=== PATIENT | female | born 1970 | race Caucasian/White ===

== ENCOUNTER 2024-12-31 12:36 | Outpatient (CLI) | payer OTHER, SELFPAY ==
--- OUTSIDE RECORDS SUMMARY | 2024-12-31 12:43 | XMS_ITS | Encounter Summary ---
Author Organization [facility] Address [facility] access hospital[address] [place] [address] Care Team Providers Care Superintendent Cemetery Name Role Phone Nieves Sears MD Primary Care Provider [phone] Encounter Details Date Type Department Care Team (Late st Contact Info) Description 10/25/2020 Discharge [facility] Outpatient Therapy [place], [place] [id number] Angelica Holman, PT [place], [place] [phone] Social History Tobacco Use Types Packs/Day Years Used Date Smoking Tobacco: Never Smokeless Tobacco: Never Alcohol Use Standard Drinks/Week Comments No 0 (1 standard drink = 0.6 oz pur e alcohol) AUDIT-C Answer Date Recorded Frequency of Alcohol Consumption Never 10/11/2018 Average Number of Drinks Not on file 019 Frequency of Binge Drinking Not on file 09/26 Comments No Sex and Gender Information Value Date Recorded Sex Assigned at Not on file Legal Sex Female 7:52 PM CDT Gender Identity Not on file Sexual Orientation Not on file documented as of this encounter Plan of Treatment Not on file documented as of this encounter Visit Diagnoses Not on filedocumented in this encounter Care Teams Superintendent Cemetery Relationship Specialty Start Date End Date Nieves Sears MD [address] [address] PCP - General 5/31/16 documented as of this encounter
--- OUTSIDE RECORDS SUMMARY | 2024-12-31 12:43 | XMS_ITS | Clinical Summary ---
Author Organization [facility] Address [address] [place] [address] Care Team Providers Care Family Assistant Name Role Phone Nieves Sears MD Primary Care Provider [phone] Allergies Active Allergy Reactions Criticality Noted Date Comments Lisinopril Unknown Low Medications amlodipine 5 MG tablet 5 mg. 5 Active colestipol 1 g tablet take 1 tablet by ORAL route 3 times every day 5 Active cyanocobalamin 1000 MCG/ML injection INJECT 1ML SQ MONTHLY 7 Active vitamin D2, ergocalciferol, 25266 UNITS capsule TAKE 1 CAPSULE WEEKLY FOR 12 WEEKS AND THEN TAKE 1 EVERY OTHER WEEK FOR CHRONIC VITAMIN D DEFICIENCY 7 Active Fluticasone Furoate (ARNUITY ELLIPTA) 200 MCG/ACT AEROSOL POWDER, BREATH ACTIVATED 200 mcg. 6 Active hydroxychloroquine 200 MG tablet TAKE 2 TABLETS BY MOUTH DAILY 8 Active IRON OR 5 Active methotrexate 2.5 MG tablet Take 20 mg by mouth. 8 Active sertraline 100 MG tablet Take 100 mg by mouth. 7 Active spironolactone 100 MG tablet TAKE 1 TABLET BY MOUTH DAILY WITH MEALS 7 Active traMADol 50 MG tablet Take 50 mg by mouth. 8 Active zolpidem (AMBIEN) 5 MG tablet 5 mg. 5 Active ondansetron (ZOFRAN ODT) 4 MG disintegrating tablet Take 1 tablet (4 mg total) by mouth every 8 (eight) hours as needed for Nausea. 15 tablet 9 Active dicyclomine 20 MG tablet Take 1 tablet (20 mg total) by mouth every 6 (six) hours. 20 tablet 9 Active folic acid 1 MG tablet Take 2 mg by mouth daily. 8 Active leflunomide 20 MG tablet Take 20 mg by mouth daily. 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 Oxygen Saturation 93% 02/01/2020 8:55 AM CDT Inhaled Oxygen Concentration - - Weight 104.6 kg (230 lb 9.6 oz) 02/01/2020 8:55 AM CDT Height 160 cm (5' 3 ) 02/01/2020 8:55 AM CDT Body Mass Index 40.85 02/01/2020 8:55 AM CDT Plan of Treatment Health Maintenance Due Date Last Done Comments Colorectal Cancer Screening Colonoscopy (10 Years) 1970 Annual Physical 1973 Hepatitis C 1988 DTaP, Tdap and Td Vaccines ( 1 - Tdap) 1989 Hepatitis B Vaccines (1 of 3 - 19+ 3-dose series) 1989 Mammogram Screening 2010 Pneumococcal Vaccine: 50+ Ye ars (2 of 2 - PPSV23) 2020 03/25/2017 Zoster Vaccines (1 of 2) 2020 COVID-19 Vaccine (1 - 2023-2 5 season) 2024 Meningococcal B Vaccine Aged Out No l onger eligible based on patient's age to complete this topic Meningococcal Vaccine Aged Out No lara kymberly eligible based on patient's age to complete this topic RSV Immunizations Under 20 Months Aged Out No longer eligible based on patient's age to complete this topic Insurance [facility] Care Teams Family Assistant Relationship Specialty Start Date End Date Nieves Sears MD [address] [place] [phone] PCP - General 01/24/16
--- OUTSIDE RECORDS SUMMARY | 2024-12-31 12:43 | XMS_ITS | Encounter Summary ---
Author Organization [facility] Care Team Providers Care Automotive Starter Repairer Name Role Phone Nieves Sears MD Primary Care Provider + Nieves Sears MD Primary Care Provider + Kinga Ca MD Unavailable Shannan Cristobal PAPER SLITTER Unavailable [phone] Nieves Sears MD Primary Care Provider + Nieves Sears MD Primary Care Provider + Encounter Details Date Type Department Care Team (Latest Contact Info) Description 09/04/2016 Orders Only [facility] ProviderBrett MD [address] [place] [address] Social History Tobacco Use Types Packs/Day Years Used Date Smoking Tobacco: Never Alcohol Use Standard Drinks/Week Comments Yes 0 (1 standard drink = 0.6 oz pur e alcohol) Comments Unknown Sex and Gender Information Value Date Recorded Sex Assigned at Not on file 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 us Historical Provider Final Res ult documented in this encounter Visit Diagnoses Not on filedocumented in this encounter Care Teams Automotive Starter Repairer Relationship Specialty Start Date End Date Nieves Sears MD [address] [address] PCP - General 11/23/16 10/06/19 Nieves Sears MD [address] [address] PCP - General 07/08/15 11/22/16 Nieves Sears MD [address] [address] PCP - General 11/06/19 Nieves Sears MD [address] [phone] PCP - General 10/07/19 11/05/19 [place] [address] [address] Rheumatology 05/15/17 [place] [address] [address] Nurse Practitioner 02/13/18 documented as of this encounter
--- OUTSIDE RECORDS SUMMARY | 2024-12-31 12:43 | XMS_ITS | Data Portability ---
Author Organization [place] [facility],, Phyllis tay Address [address] [place] [address] Care Team Providers Care Skiing Instructor Name Role Phone TK CA Referring Provider Assessment No assessment recorded. Plan of Treatment Reminders Order Date Submit Date Provider Last Modified By Organization Details Last Modified Time Details Appointments None recorded. Lab allergy test, skin 023 023 [email or web address] [facility], [address], [place], [address], 3 16:35:34 Referral None recorded. Procedures None recorded. Surgeries None recorded. Imaging None recorded. Medication Orders None recorded. Patient TargetsNo targets recorded. Patient InstructionsNo instructions recorded. Reason for Referral None Reported. Results Created Date Observation Date Name Description Value Unit Range Abnormal Flag Note LastModifiedBy Organization Detail LastModifiedTime Result Notes None recorded. Problems Name Problem SNOMED Code Status Onset Date Resolution Date Notes Provider Name and Address Organization Details Recorded Time Rheumatoid arthritis 13590044 Active 023 Louisa Dick MD [address], [place], [address] , [place] [facility], 3 15:22:08 Cobalamin deficiency 380487346 Active 023 Louisa Dick MD [address], [place], [address] , [place] [facility], 3 15:22:14 Problem Notes None recorded. Medical Equipment None Reported. Allergies Allergen ID Allergen Name Allergen Category Reaction Reaction Severity Criticality Documentation Date Start Date Code Code System Note Provider Name and Address Organization Details Recorded Time 01853 lisinopri l medicatio n cough Not available Not available 09/26/2022 96334 RxNorm JOHN majano - [facility], 3 15:11:34 Medications Name Sig Start Date Stop Date Status Note LastModified by Organization Details LastModified Time spironolacto ne 100 mg tablet TAKE 1 TABLET BY MOUTH TWICE A DAY WITH MEALS active Not Available Not Available No t Available sertraline 100 mg tablet TAKE 1 TABLET BY MOUTH EVERY DAY active Not Available Not Available No t Available prednisone 5 mg tablet TAKE TWO TABS/D X 5 DAYS, THEN 1 TAB/D X 5 DAYS, THE 0.5 TAB/D X 5 DAYS THEN STOP FOR 15 DAYS active Not Available Not Available No t Available acetaminophe n 300 mg-codeine 30 mg tablet TAKE 1 TABLET BY MOUTH EVERY 6 TO 8 HOURS NEEDED active Not Available Not Available No t Available amlodipine 5 mg tablet TAKE 1 TABLET BY MOUTH EVERY DAY active Not Available Not Available No t Available leflunomide 20 mg tablet TAKE 1 TABLET BY MOUTH EVERY DAY active Not Available Not Available No t Available tramadol 50 mg tablet TAKE 1 TABLET BY MOUTH TWICE A DAY active Not Available Not Available No t Available cefadroxil 500 mg capsule TAKE 1 CAPSULE BY MOUTH TWICE A DAY active Not Available Not Available No t Available amoxicillin 875 mg tablet TAKE 1 TABLET BY MOUTH EVERY 12 HOURS FOR 7 DAYS active Not Available Not Available N ot Available alprazolam 0.25 mg tablet active Not Available Not Available Not Available methotrexate sodium 2.5 mg tablet TAKE 8 TABLETS BY MOUTH ONE TIME PER WEEK active Not Available Not Available No t Available cyanocobalam in (vit B-12) 1,000 mcg/mL injection solution INJECT 1ML SUBCUTANEOU SLY MONTHLY active Not Available Not Available Not Available folic acid 1 mg tablet TAKE 2 TABLETS BY MOUTH EVERY DAY active Not Available Not Available No t Available zolpidem 5 mg tablet TAKE 1 TABLET EVERY NIGHT BY ORAL ROUTE NEEDED. active Not Available Not Available No t Available ergocalcifer ol (vitamin D2) 1,250 mcg (50,000 unit) capsule TAKE 1 CAPSULE BY MOUTH ONE TIME PER WEEK active Not Available Not Available No t Available insulin syringe U-100 with needle 1 mL 29 gauge x 1/2 USE DIRECTED MONTHLY WITH B12 INJECTIONS active Not Available Not Available N ot Available hydroxychlor oquine 200 mg tablet TAKE 1 TABLET BY MOUTH TWICE A DAY active Not Available Not Available No t Available methylpredni solone 4 mg tablets in a dose pack TAKE 6 TABLETS ON DAY 1 DIRECTED ON PACKAGE AND DECREASE BY 1 TAB EACH DAY FOR A TOTAL OF 6 DAYS active Not Available Not Available No t Available hydroxyzine HCl 10 mg tablet active Not Available Not Available Not Available fluticasone propionate 50 mcg/actuatio n nasal spray,suspen vesta SPRAY 2 SPRAYS INTO EACH NOSTRIL EVERY DAY active Not Available Not Available No t Available colestipol 1 gram tablet TAKE 2 TABLETS BY MOUTH EVERY DAY WITH PLENTY OF WATER active Not Available Not Available No t Available bupropion HCl XL 150 mg 24 hr tablet, extended release TAKE 1 TABLET BY MOUTH EVERY DAY active Not Available Not Available No t Available clobetasol-e mollient 0.05 % topical foam APPLY TO AFFECTED AREA OF THE BODY DAILY NEEDED active Not Available Not Available No t Available PNV-DHA 27 mg iron-1 mg-300 mg capsule TAKE 1 CAPSULE BY MOUTH EVERY DAY active Not Available Not Available No t Available Humira(CF) Pen 40 mg/0.4 mL subcutaneous kit active Not Available Not Available Not Available Vitals Date Recorded Body height Body mass index (BMI) Body weight Heart rate Oxygen saturation Oxygen saturation in Arterial blood by Pulse oximetry Respiratory rate Body temperature Systolic blood pressure Diastolic blood pressure Provider Name and Address Organization Details Last Updated DateTime 3 160.02 cm 42.5 kg/m2 141193. 17 g 94 /min 95 % 95 % 18 /min 97.5 [degF] 134 mm[Hg] 82 mm[Hg] ellen [facility]OPE[facility] - [facility], 3 15:11:06 Social History None recorded. Functional Status None recorded. Mental Status None recorded. Family History Nothing Reported. Medical History No medical history recorded. Gynecological HistoryNo gynecological history recorded. Obstetrics History GPAL:G 0 P 0 0 0 0 Past Encounters Encounter ID Performer Location Encounter Start Date Encounter Closed Date Diagnosis/Indication Diagnosis SNOMED-CT Code Diagnosis ICD10 Code Diagnosis Note [id number] Louisa Dick MD OFFICE [address] [place] [phone] 09/26/2022 14:48:20 09/26/2022 17:42:09 Adverse reaction to biological substance 125403047 T50.905A Negative skin test utilizing Humira and Simponi. No evidence for drug specific IgE against either agent. The Humira reaction likely is an injection site reaction only. She may proceed to a trial of Simponi. Health Concerns Section Related Observation LastModified by Organization Detai ls LastModified Time None Recorded Concern Status LastModified by Organization Details LastModified Time None Recorded Advance Directives Directive None Recorded Payers Encounter Date Sequence Insurance Name Policy Number Policy [place] Covered Member ID Villa Member ID Guarantor Name 09/26/2022 1 [id number] [id number] Eleanor Gabby [id number] Eleanor Pierre 09/26/2022 2 [employer] - FOR LIFE (MEDICARE SUPPLEMENT) Rush Pierre [id number] Eleanor Gabby Notes Date Note Type Note Provider Name and Address Organization Details Recorded Time 09/26/2022 text/html Eleanor is referred by Dr. Ca for evaluation of possible allergy to Humira. She started using it after developing tolerance to Orencia. Starting with her first injection the site became red hot and itchy hours later. She continued it for 5 more treatments and the reactions became worse each time. She never developed urticaria or rash distant from the injection site. She never developed angioedema, difficulty breathing, lightheadedness. She rotated sites but always used the quadriceps muscles Louisa Dick MD [address], [place], [address], [facility], 09/26/2022 16:36:47 OBGyn Episode No OBEpisode recorded.
--- OUTSIDE RECORDS SUMMARY | 2024-12-31 12:44 | XMS_ITS | Referral Summary ---
Author Organization [facility] [address] Address [address] [place] [address] Phone Care Team Providers Care Conveyor System Operator Name Role Phone Kinga Ca MD Unavailable Shannan Cristobal NP Unavailable [phone] Nieves Sears MD Primary Care Provider [phone] Encounters Date Type Department Care Team Description 12/25/2024 2:46 PM CDT - 12/25/2024 11:59 PM CDT Hospital Encounter [facility] Diagnostic Imaging [address] [place] [address] 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 factor (HCC) Discharge Disposition: Discharge to home or self care 11/13/2024 7:29 AM CDT - 11/13/2024 11:59 PM CDT Hospital Encounter [facility] Medical Office Bld[facility] [address] [facility] [address] [place] [address] Screening mammogram, encounter for Discharge Disposition: Discharge to home or self care from Last 3 Months Allergies Active Allergy Reactions Criticality Noted Date Comments Lisinopril Unknown Low Medications amLODIPine (NORVASC) 5 mg tablet take 1 tablet by oral route every day 0 0 5 Active zolpidem (AMBIEN) 5 mg tablet take 2 tablet by oral route every day at bedtime 0 0 5 Active colestipol (COLESTID) 1 gram tablet take 1 tablet by ORAL route 3 times every day 0 0 5 Active albuterol sulfate (PROAIR RESPICLICK) 90 mcg/actuation aerosol powdr breath activated inhale 2 puff by inhalation route every 4 - 6 hours as needed 0 Inhaler 0 6 Active cyanocobalamin (Vitamin B-12) 1,000 mcg/mL injection INJECT 1ML SQ MONTHLY 11 7 Active ergocalciferol (VITAMIN D) 50,000 unit capsule TAKE 1 CAPSULE WEEKLY FOR 12 WEEKS AND THEN TAKE 1 EVERY OTHER WEEK FOR CHRONIC VITAMIN D DEFICIENCY 1 7 Active PLUS, CALCIUM CARB, 27 mg iron- 1 mg tablet Take 1 tablet by mouth daily. 3 7 Active sertraline (ZOLOFT) 100 mg tablet Take 100 mg by mouth daily. 3 7 Active spironolactone (ALDACTONE) 100 mg tablet TAKE 1 TABLET BY MOUTH DAILY WITH MEALS 0 7 Active methotrexate 2.5 mg tablet Take 8 tablets (20 mg total) by mouth once a week. 96 tablet 1 8 Active hydroxychloroqu ine (PLAQUENIL) 200 mg tablet TAKE 2 TABLETS BY MOUTH DAILY 180 tablet 8 Active diclofenac sodium 20 mg/gram /actuation(2 %) solution in metered-dose pump Apply 2 pump actuations affected area twice daily 112 g 1 8 Active folic acid (FOLVITE) 1 mg tablet Take 2 tablets (2 mg total) by mouth daily. 180 tablet 3 8 Active leflunomide (ARAVA) 20 mg tabletIndicatio ns:Rheumatoid Arthritis Take 1 tablet (20 mg total) by mouth daily. 30 tablet 3 8 Active traMADol (ULTRAM) 50 mg tablet Take 1 tablet (50 mg total) by mouth every 8 (eight) hours as needed for pain. 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 Currently on SQ MTX 20 mg/wk, folic acid, and HCQ bid Continues to have joint pain and stiffness, which she thinks is getting worse. Tendonitis in the right elbow is not any better w/ conservative measures. Recently saw the coal crusher operator for the skin lesion on her left back calf and was told it was psoriasis. We repeated her autoimmune markers in 02/10 which showed a +anti-C1q. Her hand/wrist us in 01/10 showed worsening active inflammation compared to her previous u/s in 02/09 Discussed adding arava to her current regimen to better control her inflammatory disease. Patient to start leflunomide. The medication can take up to 6-8 weeks to start working and 6 months to feel the maximum effect. Discussed SE including but not limited to: diarrhea and nausea, hair thinning, and skin rash. Discussed that while patient is on this medication it is best to avoid ETOH and have routine blood work to monitor the liver. She was given samples of pennsaid and duexis Will check routine labs today Follow up in 4 wks, sooner if needed Vitamin D deficiency 12/04/2017 Assessment & Plan (02/13/2018 1:39 PM CDT): WNL on recent labs. She is on 50,000/wkly and 2000 units/d Assessment & Plan (12/04/2017 4:09 PM CDT): On supplementation. Will check level today. Encounter for long-term (current) use of medicat ions 07/11/2017 Assessment & Plan (05/14/2018 5:12 PM CDT): Will continue to monitor w/ routine labs Assessment & Plan (02/13/2018 1:22 PM CDT): Will continue to monitor w/ routine labs Assessment & Plan (12/04/2017 3:59 PM CDT): Will continue to monitor w/ routine labs Systemic lupus erythematosus 07/11/2017 Assessment & Plan (05/14/2018 5:06 PM CDT): AVISE testing showed negative SLE serologies other than a +anti-C1q which can sometimes be linked to SLE nephritis. She has had normal kidney function. Will continue to monitor Assessment & Plan (02/13/2018 1:55 PM CDT): Patient disease activity is moderate on hcq and 8 tabs mtx/wk. She is having trouble w/ tendonitis in her right elbow and reports her hands are a little more achy. She is having breast reduction surgery in early February. Patient is to continue current regimen for now. SLE markers on last labs were WNL. Will check routine labs today and will recheck AVISE for change in serologies. Will send in pennsaid to [facility] Follow up in 3 mo, sooner if needed Assessment & Plan (12/04/2017 4:08 PM CDT): She states she is doing fairly well on HCQ and 8 tabs MTX once weekly. She states her hands are beginning to bother her a little more than they have previously. She has a right hand/wrist u/s in 01/2017 which showed mild/moderate synovitis w/ effusions, thickening, and power doppler. Patient is to continue current medical regimen. Will check routine labs today. We will also check a right hand/wrist u/s to see if there is any worsening disease. Pt will follow up in 2 mo, sooner if needed. Pt seen w/ Chelsea Arevalo PA-C Assessment & Plan (07/25/2017 1:10 PM LYMPHEDEMA THERAPIST): On plaquenil and mtx Acute pain of right knee 02/11/2017 Assessment & Plan (03/13/2017 5:49 PM CDT): On Plaquenil. Eye exam is utd. Pt has mod cdai on exam and hand u/ showed mild to mod synovitis. Start mtx 3 tabs/week, discussed potential se of bone marrow suporession, lft elevation, increased risk of infection, oral/nose ulcers, hair loss, lung fibrosis. Check cxr and labs today. Check avise panel. F/u in 1mo. Joint pain of ankle and foot, right 02/11/2017 Assessment & Plan (07/25/2017 1:12 PM LYMPHEDEMA THERAPIST): Worsening pain in R midfoot. xrays did not show any cause for this pain. She has heel spurs. MRI was not approved by insurance, requiring her to do PT first. I do not feel that PT will help with this pain as it may be more inflammatory or possibly tendinitis, also consider stress fx. She has flat feet as well. Will try prednisone taper for 2 weeks. If not improving we may try appealing for the MRI or sending to podiatry. Primary osteoarthritis of both hips 02/11/2017 Assessment & Plan (03/13/2017 5:50 PM CDT): Hip pin has resolved with PT. Hypertension 07/08/2015 Overview (11/30/2016): HTN - Hypertension Resolved Problems Problem Noted Date Diagnosed Date Resolved Date [facility]oid arthritis [facility] without rheumatoid factor 02/11/2017 05/10/2017 Encounter for long-term (cur rent) use of other medications 02/11/2017 12/04/2017 Assessment & Plan (03/13/2017 5:50 PM CDT): Check labs. Social History Tobacco Use Types Packs/Day Years Used Date Smoking Tobacco: Never Alcohol Use Standard Drinks/Week Comments Yes 0 (1 standard drink = 0.6 oz pur e alcohol) Comments No Sex and Gender Information Value Date Recorded Sex Assigned at Not on file Legal Sex Female 3:46 AM LYMPHEDEMA THERAPIST Gender Identity Not on file Sexual Orientation Not on file Last Filed Vital Signs Vital Sign Reading Time Taken Comments Blood Pressure 128/72 05/14/2018 1:31 PM CDT Pulse 78 05/14/2018 1:31 PM CDT Temperature 36.9 C (98.5 F) 03/04/2018 3:07 PM CDT Respiratory Rate 17 04/19/2021 8:13 AM CDT Oxygen Saturation 98% 03/04/2018 3:07 PM CDT Inhaled Oxygen Concentration - - Weight 99.8 kg (220 lb) 04/19/2021 8:13 AM CDT Height 160 cm (5' 3 ) 04/19/2021 8:13 AM CDT Body Mass Index 38.97 04/19/2021 8:13 AM CDT Plan of Treatment Not on file Procedures Procedure Name Priority Date/Time Associated Diagnosis Comments XR HIPS BILATERAL 3 OR 4 VW Schedule Routine, Read Routine (OP Routine) 12/25/2024 3:04 PM CDT 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 factor (HCC) SCREENING MAMMOGRAM BILATERAL [place] Schedule Routine, Read Routine (OP Routine) 11/13/2024 7:46 AM CDT Screening mammogram, encounter for HEPATITIS C ANTIBODY Routine 05/13/2017 3:50 PM CDT THINPREP PAP Routine 02/07/2015 12:15 PM CDT from Last 3 Months or Most Recently Relevant to Health Maintenance Results * XR Hips Bilateral 3 or 4 Views (12/25/2024 3:04 PM CDT) Anatomical Region Laterality Modality Lower Extremities, Hip, Pelvis Bilateral C omputed Radiography 12/26/2024 7:41 AM CDT Narrative 12/26/2024 7:42 AM CDT EXAM DESCRIPTION: XR HIPS BILATERAL 3 OR 4 VW REASON FOR STUDY: Dx M06.09 Clicking in right hip, pain in both hips for the past few weeks; Hx of RA x5 years FINDINGS: Four views submitted with comparison 04/05/2023. No acute fracture. Alignment is normal. The hip joint space heights are normal. IMPRESSION: Normal bilateral hip joint space heights. THIS IS AN ELECTRONICALLY VERIFIED FINAL REPORT 12/26/2024 7:42 AM - Electronically signed by Jeremiah Montague M.D. MF: [id number] Report ID: [id number] Reading Location: [id number] Procedure Note Jeremiah Montague MD - 12/26/2024 EXAM DESCRIPTION: XR HIPS BILATERAL 3 OR 4 VW REASON FOR STUDY: Dx M06.09 Clicking in right hip, pain in both hips for the past few weeks; Hx of RAx5 years FINDINGS: Four views submitted with comparison 04/05/2023. No acute fracture. Alignment is normal. The hip joint space heights are normal. IMPRESSION: Normal bilateral hip joint space heights. THIS IS AN ELECTRONICALLY VERIFIED FINAL REPORT 12/26/2024 7:42 AM - Electronically signed by Jeremiah Montague M.D. MF: [id number] Report ID: [id number] Reading Location: [id number] Sabine [facility] RAILROAD WATCHMAN IMG XR PROCEDURES Final Result * Screening Mammogram Bilateral [facility] [place] (11/13/2024 7:46 AM CDT) Anatomical Region Laterality Modality Breast Bilateral Mammography Impressions 11/13/2024 9:23 AM CDT BI-RADS ATLAS category (overall): 2 - Benign There is no mammographic evidence of malignancy. A 1 year screening mammogram is recommended. The patient has been or will be contacted. We recommend annual screening mammography for women at average risk of breast cancer beginning at age 40, based on guidelines of the [employer] [employer] (ACR Practice Parameter for the Performance of Screening and Diagnostic Mammography) and [place] [employer]. For women with and elevated risk of breast cancer, please refer to the ACR Practice Parameter for specific screening recommendations. The patient will be entered into a reminder system with a target due date of 1 year for her next screening exam. Narrative 11/13/2024 9:23 AM CDT Screening Mammogram Bilateral [facility]: 11/13/24 The study was acquired using full field digital technology and interpreted from soft copy. 2D digital mammographic views, as well as 3D digital tomosynthesis were performed in the CC and MLO projections. CLINICAL: Screening mammogram, encounter for. No relevant medical history has been documented for this patient. History of breast cancer in Other. COMPARISONS: 09/20/2023 Screening Mammogram Bilateral [facility] 05/19/2020 Diagnostic Mammogram Bilateral [facility] 11/06/2019 Diagnostic Mammogram Right [facility] [place] BREAST TISSUE: There are scattered areas of fibroglandular density. FINDINGS: There are unchanged benign microcalcifications in both breasts. There is no new suspicious finding in either breast on mammogram. us Self Screening Mammogram IMG MAMMO PROCEDURES Fi nal Result * Hepatitis C antibody (05/13/2017 3:50 PM CDT) Pathologist [facility] Hep C Ab NON-REACTI VE NON-REACTI VE [facility] SIGNAL TO CUT-OFF 0.06 <1.00 [facility] 05/13/2017 3:50 PM CDT 05/13/2017 3:51 PM CDT Narrative Resulting Agency Comment Performing Organization Information: Site ID: [email or web address] Name: [email or web address] Address: [address] [place] [address] Director: Jaswant Randall D.O., MPH Latasha JI LAB MICROBIOLOGY - GENERAL ORDERABLES Final Result [facility] [place], [place] * ThinPrep Pap (02/07/2015 12:15 PM CDT) Pathologist [facility] Thin Prep Pap Smear SEE BELOW () 02/14 6:30 PM CDT [facility] HISTORICAL RESULTS Comment: Diamond Die Polisher ThinPrep Cytology Final Report ThinPrep Pap Specimen Source Cervix/Endocervix Specimen Adequacy Satisfactory for interpretation, endocervical cells (transformation zone) present. Interpretation Negative for intraepithelial lesion or malignancy. 02/14/15 Rotary Surface Grinder: TERA Osman(ASCP) 02/14/15 Verified By: TERA Osman(ASCP) electronic signature [facility], Department of Pathology For questions regarding this case, call ext. [phone] CPT Code(s) 25656 Clinical History LMP: [id number] : N : N IUD: N Hormone Therapy: N Postmenopausal: N Previous surgery date and type: N Hysterectomy: N Chemotherapy: N MICHELE Exposure: N Radiation: N Previous Abnormal Pap? Details: N Diagnostic or Screening Pap Test: Screening Performed by [facility], [address] [place] [id number] [email or web address], Hira Cadena MD - Lab. Director 02/07/2015 12:1 5 PM CDT 02/07/2015 4:28 PM CDT Jaswant Vega MD LAB PATHOLOGY ORDERABLE S Final Result [facility] HISTORICAL RESULTS from Last 3 Months or Most Recently Relevant to Health Maintenance Insurance [facility] CLAIMS [place] [facility] CLAIMS Wireless Environment [place] [facility] CLAIMS [facility] Care Teams Conveyor System Operator Relationship Specialty Start Date End Date Nieves Sears MD [address] [address] PCP - General 11/06/19 [place] [address] [facility] [address] [place] [address] Rheumatology 05/15/17 [place] [address] [facility] [address] [place] [address] Nurse Practitioner 02/13/18
--- OUTSIDE RECORDS SUMMARY | 2024-12-31 12:44 | XMS_ITS | Data Portability ---
Author Organization [facility] Address [address] [place] [address] Care Team Providers Care Supervisor Self Service Store Name Role Phone NIEVES AGEE Primary Care Provider STEFAN CELESTIN Orthopedic Surgeon TK CALIX Web Interface Developer Assessment No assessment recorded. Plan of Treatment Reminders Order Date Submit Date Provider Last Modified By Organization Details Last Modified Time Details Appointments ANY 15 2024 01:00P Carlos Alberto Agee MD Not available Not available Not available Lab urinaly sis, dipstic k 2024 025 [facility] In-Office Order, Internal Use Only DO Not Attach Compendium DO Not Attach Compendium, Do Not Delete/merge, [id number] 10/16/2024 14:52:30 culture , urine 2024 025 VANITA [facility], [address] [place] [address], [address], 10/17/2024 21:20:50 Referral plastic surgeon rhonda hung - she prefers the [facility] plastic surgery departm ent for consult ation [address] [facility], [address] [place], [address], 11/26/2024 15:42:08 Procedures None recorde d. Surgeries None recorde d. Imaging None recorde d. Medication Orders prednis one 20 mg tablet 2024 025 [facility][id number], [address], [place], [address], 12/18/2024 15:56:12 cefdini r 300 mg capsule 2024 025 [id number], [address], [place], [address], 12/18/2024 15:56:12 Zepboun d 5 mg/0.5 mL subcuta neous pen injecto r 2024 025 [place] [address], [address], 10/16/2024 14:34:35 azelast ine 205.5 mcg (0.15 %) nasal spray 2024 025 [place] [address], [address], 10/16/2024 14:34:35 zolpide m 5 mg tablet 2024 025 [place] [address], [address], 10/16/2024 14:34:36 Zepboun d 7.5 mg/0.5 mL subcuta neous pen injecto r 2023 024 [place] [address], [address], 06/18/2024 15:13:00 zolpide m 5 mg tablet 2023 024 [place] [address], [address], 06/18/2024 15:13:09 zolpide m 5 mg tablet 2023 024 [id number] [place] [address], [address], 01/31/2024 10:13:40 Zepboun d 5 mg/0.5 mL subcuta neous pen injecto r 2023 024 [facility] [id number] [place] [address], [address], 05/21/2024 13:23:59 Zepboun d 5 mg/0.5 mL subcuta neous pen injecto r 2023 024 [facility] [id number] [place] [address], [address], 05/21/2024 13:23:45 Patient TargetsNo targets recorded. Patient Instructions Encounter Date Encounter Id Patient Instructions Last Modified By Organization Details Last Modified Time 10/31/2023 [id number] body mass index: care instructions Not available 10/31/2023 12:55:17 learning about healthy weight Not available 10/31/2023 12:55:17 01/31/2024 [id number] A healthy lifestyle: care instructions Not available 01/31/2024 10:13:35 06/18/2024 [id number] body mass index: care instructions Not available 06/18/2024 15:12:52 learning about healthy weight Not available 06/18/2024 15:12:52 10/16/2024 [id number] dietary bladder irritants Not available 10/16/2024 14:34:33 Reason for Referral Plastic Surgeon Referral for Excessive skin and subcutaneous tissue she prefers the [facility] plastic surgery department for consultation Referring Physician: Nieves Agee, Family Medicine, Encounter Date: 10/16/2024 Results Created Date Observation Date Name Description Value Unit Range Abnormal Flag Note LastModifiedBy Organization Detail LastModifiedTime 01/10/20 24 01/12/2024 HEPAT IC FUNCT ION PANEL protein, total 6.4 g/dL 6.1-8. 1 normal Not Available [address], [address], 01/12/2024 12:19:13 01/10/20 24 01/12/2024 HEPAT IC FUNCT ION PANEL albumin 3.9 g/dL 3.6-5. 1 normal Not Available [address], [address], 01/12/2024 12:19:13 01/10/20 24 01/12/2024 HEPAT IC FUNCT ION PANEL globulin 2.5 g/dL_ (calc ) 1.9-3. 7 normal Not Available [address], [address], 01/12/2024 12:19:13 01/10/20 24 01/12/2024 HEPAT IC FUNCT ION PANEL albumin/glob ulin ratio 1.6 (calc ) 1.0-2. 5 normal Not Available [address], [address], 01/12/2024 12:19:13 01/10/20 24 01/12/2024 HEPAT IC FUNCT ION PANEL bilirubin, total 0.4 mg/dL 0.2-1. 2 normal Not Available [address], [address], 01/12/2024 12:19:13 01/10/20 24 01/12/2024 HEPAT IC FUNCT ION PANEL bilirubin, direct 0.1 mg/dL < or = 0.2 normal Not Available [address], [address], 01/12/2024 12:19:13 01/10/20 24 01/12/2024 HEPAT IC FUNCT ION PANEL bilirubin, indirect 0.3 mg/dL _(kalie c) 0.2-1. 2 normal Not Available [address], [address], 01/12/2024 12:19:13 01/10/20 24 01/12/2024 HEPAT IC FUNCT ION PANEL alkaline phosphatase 104 U/L 37-153 normal Not Available [facility] [employer] [place] [address] [place], [address], 01/12/2024 12:19:13 01/10/20 24 01/12/2024 HEPAT IC FUNCT ION PANEL AST 41 U/L 10-35 high Not Available [place] [address] [place], [address], 01/12/2024 12:19:13 01/10/20 24 01/12/2024 HEPAT IC FUNCT ION PANEL ALT 25 U/L 6-29 normal Not Available [address], [address], 01/12/2024 12:19:13 01/10/20 24 01/12/2024 VITAM IN D,25- OH,TO LUCY,I A vitamin D,25-oh,tota l,ia 96 NG/mL 30-100 normal Vitam in D Statu s 25-OH Vitam in D: Defic iency : <20 ng/mL Insuf ficie ncy: 20 - 29 ng/mL Optim al: > or = 30 ng/mL For 25-OH Vitam in D testi ng on patie nts on D2-mcmillan pplem entat ion and patie nts for whom quant itati on of D2 and D3 fract ions is requi red, the [employer] Assur eD(TM ) 25-OH VIT D, (D2,D 3), LC/MS /MS is recom shanice d: order code 29676 (cherry ents >2yrs ). See Note 1 Note 1 For addit ional infor thai rodriguez refer to http: //dusty pinzonQue stDia gnost ics.c om/fa q/FAQ 199 (This link is being provi ded for infor michoacano beyer/ nyasia hung purpo ses only. ) Not Available [facility] [address] [place], [address], 01/12/2024 12:19:15 10/16/19 25 10/17/2024 CULTU RE, URINE , ROUTI NE culture, urine, routine SEE NOTE CULTU RE, URINE , ROUTI NE Micro Numbe r: [id number] Test Statu s: Final Speci men Sourc e: Urine Speci men Quali ty: Adequ ate Resul t: Mixed genit al zayra isola cambpell. These super ficia l bacte edilberto are not indic ative of a urina ry tract infec tion. No furth er organ ism ident ifica tion is warra nted on this speci men. If clini ana indic ated, recol lect clean -catc h, mid-s tream urine and trans emily immed iatel y to Urine Cultu re Trans port Tube. Not Available [place] [address] [place], [address], 10/17/2024 21:20:50 10/16/19 25 10/16/2024 urina lysis , dipst ick Leukocytes Negati ve Not Available In-Office Order Internal Use Only DO Not Attach Compendium DO Not Attach Compendium, Do Not Delete/merge, 10/16/2024 14:30:44 10/16/19 25 10/16/2024 urina lysis , dipst ick Nitrite negati ve Not Available In-Office Order Internal Use Only DO Not Attach Compendium DO Not Attach Compendium, Do Not Delete/merge, 10/16/2024 14:30:44 10/16/19 25 10/16/2024 urina lysis , dipst ick Urobilinogen .2 Not Available In-Of fice Order Internal Use Only DO Not Attach Compendium DO Not Attach Compendium, Do Not Delete/merge, 10/16/2024 14:30:44 10/16/19 25 10/16/2024 urina lysis , dipst ick Protein Negati ve Not Available In-Office Order Internal Use Only DO Not Attach Compendium DO Not Attach Compendium, Do Not Delete/merge, 10/16/2024 14:30:44 10/16/19 25 10/16/2024 urina lysis , dipst ick pH 6.0 Not Available In-Office Order Internal Use Only DO Not Attach Compendium DO Not Attach Compendium, Do Not Delete/merge, 10/16/2024 14:30:44 10/16/19 25 10/16/2024 urina lysis , dipst ick Blood Negati ve Not Available In-Office Order Internal Use Only DO Not Attach Compendium DO Not Attach Compendium, Do Not Delete/merge, 10/16/2024 14:30:44 10/16/19 25 10/16/2024 urina lysis , dipst ick Specific [place] 1.015 Not Available In-Off ice Order Internal Use Only DO Not Attach Compendium DO Not Attach Compendium, Do Not Delete/merge, 10/16/2024 14:30:44 10/16/19 25 10/16/2024 urina lysis , dipst ick Ketone Negati ve Not Available In-Office Order Internal Use Only DO Not Attach Compendium DO Not Attach Compendium, Do Not Delete/merge, 10/16/2024 14:30:44 10/16/19 25 10/16/2024 urina lysis , dipst ick Bilirubin Negati ve Not Available In-Office Order Internal Use Only DO Not Attach Compendium DO Not Attach Compendium, Do Not Delete/merge, 10/16/2024 14:30:44 10/16/19 25 10/16/2024 urina lysis , dipst ick Glucose Negati ve Not Available In-Office Order Internal Use Only DO Not Attach Compendium DO Not Attach Compendium, Do Not Delete/merge, 10/16/2024 14:30:44 10/16/19 25 10/16/2024 urina lysis , dipst ick Appearance Clear Not Available In-Offi ce Order Internal Use Only DO Not Attach Compendium DO Not Attach Compendium, Do Not Delete/merge, 10/16/2024 14:30:44 10/16/19 25 10/16/2024 urina lysis , dipst ick Color Yellow Not Available In-Office Order Internal Use Only DO Not Attach Compendium DO Not Attach Compendium, Do Not Delete/merge, [id number] 10/16/2024 14:30:44 11/14/19 25 11/13/2024 MAMMO , rajendra burger No observ ation record ed. [facility] [address] [place], [address], 11/13/2024 12:37:25 Result Notes None recorded. Problems Name Problem SNOMED Code Status Onset Date Resolution Date Notes Provider Name and Address Organization Details Recorded Time History of bariatri c surgical procedur e 759507158 Active 2017 Nieves Agee MD Attn: Accounting ,[address] [place], [place], [address] [place] [address] , [facility] 10:53:53 History of immunosu ppressiv e therapy 393430358 Active 2018 Nieves Agee MD Attn: Accounting ,[address] [place], [address] [place] [address] , [facility] 10:53:55 Persiste nt insomnia 536987321 Active 2020 Nieves Agee MD Attn: Accounting ,[address] [place], [address] [place] [address] , [facility] 10:54:13 Reactive hypoglyc emia 036150 Completed 202101/31/2024 Nieves Agee MD Attn: Accounting ,[address] [place], [address] [place] [address] , [facility] 4 10:17:25 Divertic ulosis of colon 042787429 Active 2023 Nieves Agee MD Attn: Accounting ,[address] [place], [address] [place] [address] , [facility] 07:51:43 History 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 01/14/24- - recheck THREE YEARS Nieves Agee MD Attn: Accounting ,[address] [place], [address] , [place] [facility] 4 07:36:41 Chronic insomnia 843201574 Active 2023 Nieves Agee MD Attn: Accounting ,[address] [place], [address] , [place] [facility] 4 10:17:30 Body mass index 30+ - obesity 497430700 Completed 202310/16/2024 Nivees Agee MD Attn: Accounting ,[address] [place], [address] , [place] [facility] 14:12:04 Irritabl e bowel syndrome 99597687 Active Nieves Agee MD Attn: Accounting ,[address] [place], [address] , [place] [facility] 2 10:54:00 Anxiety disorder 209473438 Completed 06/19/2018 Nieves Agee MD Attn: Accounting ,[address] [place], [address] , [place] [facility] 8 14:56:08 Cobalami n deficien cy 031313291 Completed 06/19/2018 Nieves Agee MD Attn: Accounting ,[address] [place], [address] , [place] [facility] 8 14:56:12 Vitamin D deficien cy 54463789 Completed 01/31/2024 Removal Reason: result 96 on 12/2023 Nieves Agee MD Attn: Accounting ,[address] [place], [address] , [place] [facility] 4 10:18:00 Sciatica 13932560 Completed 201408/18/2015 Location : None;Sev erity: Moderate ;Progres s: Stable;A dded By: Eleanor Leavitt;Add to Current Problems : YES Not Available [facility] 7 09:39:40 Hemorrha ge of rectum and anus 274779717 Completed 201207/23/2013 Location : None;Sev erity: Moderate ;Progres s: Stable;A dded By: Nieves Agee;Add to Current Problems : NO Not Available [facility] 7 09:39:40 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 003718017 Completed 201310/04/2013 Location : None;Sev erity: Moderate ;Progres s: Stable;A dded By: Nieves Agee;Add to Current Problems : NO Not Available [facility] 09:39:40 Disorder of rotator cuff 319264387 Completed 201303/18/2014 Location : None;Sev erity: Moderate ;Progres s: Stable;A dded By: Nieves Agee;Add to Current Problems : NO Not Available [facility] 09:39:40 Localize d, 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 103545078 Active 2013 Location : None;Sev erity: Moderate ;Progres s: Stable;A dded By: Nieves Agee;Add to Current Problems : NO Nieves Agee MD Attn: Accounting ,[address] [place], [address] , [facility] 0 14:51:31 Pain in limb 99829485 Active 2014 Location : None;Sev erity: Moderate ;Progres s: Stable;A dded By: Nieves Agee;Add to Current Problems : YES Nieves Agee MD Attn: Accounting ,[address] [place], [address] , [facility] 0 14:51:31 Dyssomni a 52924947 Completed 201405/15/2015 Location : None;Sev erity: Moderate ;Progres s: Stable;A dded By: Nieves Agee;Add to Current Problems : YES Not Available [facility] 7 09:39:41 Vitamin B deficien cy 55878945 Active 2011 Location : None;Sev erity: Moderate ;Progres s: Stable;A dded By: Nieves Agee;Add to Current Problems : YES Nieves Agee MD Attn: Accounting ,[address] [facility], [place], [place], [address] [place] [address] , [facility] 0 14:51:31 Clinical finding Completed 201512/19/2017 Location : None;Sev erity: Moderate ;Progres s: Stable;A dded By: Nieves Agee;Add to Current Problems : YES Nieves Agee MD Attn: Accounting ,[address] [facility], [place], [address] [place] [address] , [facility] 8 14:53:28 Migraine without aura 99949976 Active 2015 Location : None;Sev erity: Moderate ;Progres s: Stable;A dded By: Nieves Agee;Add to Current Problems : YES Nieves Agee MD Attn: Accounting ,[address] [place], [address] [place] [address] , [facility] 0 14:51:31 Generali zed anxiety disorder 48868159 Active 2013 Location : None;Sev erity: Moderate ;Progres s: Stable;A dded By: Nieves Agee;Add to Current Problems : YES Nieves Agee MD Attn: Accounting ,[address] [facility], [place], [address] [place] [address] , [facility] 0 14:51:31 Benign essentia l hyperten vesta 6766921 Active 2011 Location : None;Sev erity: Moderate ;Progres s: Stable;A dded By: Nieves Agee;Add to Current Problems : YES Nieves Agee MD Attn: Accounting ,[address] [facility], [place], [address] [place] [address] , [facility] 0 14:51:31 Neck pain 77128276 Completed 201301/12/2016 Location : None;Sev erity: Moderate ;Progres s: Stable;A dded By: Eleanor Leavitt;Add to Current Problems : YES Not Available [facility] 7 09:39:41 General symptom 283707087 Completed 201312/19/2017 Location : None;Sev erity: Moderate ;Progres s: Stable;A dded By: Taniya Espinal;Add to Current Problems : YES Nieves Agee MD Attn: Accounting ,[address] [place], [address] , [facility] 8 14:53:22 Shoulder joint pain 151587999 Completed 201306/20/2014 Location : None;Sev erity: Moderate ;Progres s: Stable;A dded By: Taniya Espinal;Add to Current Problems : YES Not Available [facility] 7 09:39:41 Acute cystitis 27870492 Completed 201410/23/2014 Location : None;Sev erity: Moderate ;Progres s: Stable;A dded By: Taniya Espinal;Add to Current Problems : YES Not Available [facility] 7 09:39:41 Headache 71884498 Completed 201309/23/2014 Location : None;Sev erity: Moderate ;Progres s: Stable;A dded By: Keli Ellison;Add to Current Problems : YES Not Available [facility] 7 09:39:41 Chest pain 42034398 Completed 201502/06/2016 Location : None;Sev erity: Moderate ;Progres s: Stable;A dded By: Lexy Valenzuela; Add to Current Problems : NO Not Available [facility] 7 09:39:41 Head and neck swelling 873008943 Completed 201502/12/2016 Location : None;Sev erity: Moderate ;Progres s: Stable;A dded By: Lexy Valenzuela; Add to Current Problems : YES Not Available [facility] 7 09:39:41 Acute sinusiti s 66850998 Completed 201301/14/2014 Location : None;Sev erity: Moderate ;Progres s: Stable;A dded By: Helen Kumar i;Afsaneh dd to Current Problems : NO Not Available [facility] 7 09:39:41 Transien t insomnia 930837533 Completed 201301/14/2014 Location : None;Sev erity: Moderate ;Progres s: Stable;A dded By: Helen Kumar i;Afsaneh dd to Current Problems : NO Not Available [facility] 7 09:39:42 Acute upper respirat ory infectio n of multiple sites Completed 201310/22/2013 Location : None;Sev erity: Moderate ;Progres s: Stable;A dded By: Taniya Espinal;Add to Current Problems : NO Not Available [facility] 7 09:39:42 Acute sinusiti s 93579219 Completed 201310/22/2013 Location : None;Sev erity: Moderate ;Progres s: Stable;A dded By: Donya Mann;Add to Current Problems : NO Not Available [facility] 7 09:39:42 Clinical finding Completed 201405/23/2015 Location : None;Sev erity: Moderate ;Progres s: Stable;A dded By: Dulce Maria Arevalo;Add to Current Problems : NO Not Available [facility] 7 09:39:42 Venereal disease screenin g Completed 201108/28/2012 Location : None;Sev erity: Moderate ;Progres s: Stable;A dded By: Eleanor Leavitt;Add to Current Problems : NO Not Available [facility] 7 09:39:42 Family history of malignan t neoplasm of gastroin testinal tract 093382580 Active 2011 Location : None;Sev erity: Moderate ;Progres s: Stable;A dded By: Nieves Agee;Add to Current Problems : NO Nieves Agee MD Attn: Accounting ,[address] [place], [address] , [facility] 0 14:51:31 Problem Notes None recorded. Procedures Surgical History Date Name Laterality Status Provider Name and Address Organization Details Recorded Time 09/22/19 19 I&D completed Nieves Agee MD Attn: Accounting,[address] [place], [address], [facility] 09/22/2018 16:50:48 03/04/20 18 Breast Surgery completed Nieves Agee MD Attn: Accounting,[address] [facility], [place], [address], [facility] 03/06/2018 09:36:56 10/03/19 18 Ankle/Foot Surgery completed Nieves gAee MD Attn: Accounting,[address] [facility], [place], [address], [facility] 10/31/2023 09:20:04 09/04/19 17 Total hysterectomy completed Nieves Agee MD Attn: Accounting,[address] [facility], [place], [address], [facility] 10/31/2023 09:19:11 05/25/19 98 bariatric operative procedure completed Nieves Agee MD Attn: Accounting,[address] [facility], [place], [address], [facility] 10/31/2023 12:53:45 Cholecystectomy completed Delmis Xiong [facility] 03/22/2017 13:54:47 Hernia Repair completed Delmis Xiong [facility] 03/22/2017 13:55:00 Caesarean Section completed Ema Xiong [facility] 03/22/2017 13:55:17 Removal of thyroid completed Jacky Xiong [facility] 03/22/2017 13:55:38 Imaging Results Imaging Date Name Status LastModified by Organiz ation Details LastModified Time 11/13/2024 MAMMO, screening, bilateral completed [facility] [address] [place] [address], [address], 11/13/2024 12:37:25 Procedure Notes None recorded. Medical Equipment None Reported. Allergies Allergen ID Allergen Name Allergen Category Reaction Reaction Severity Criticality Documentation Date Start Date Code Code System Note Provider Name and Address Organization Details Recorded Time 070657 Humira medicatio n itching swelling Not available Not available low 09/24/2022 68780 4 RxNorm Nieves Agee MD Attn: Accountin g,[address] [facility], [place], [address], [facility] 3 16:24:03 69128 lisinopri l medicatio n cough Not available Not available 06/04/2016 31343 Rx[facility] 6 12:41:35 47066 Non-stero idal anti-infl ammatory agent (product) medicatio n dizziness moderate Not available 08/29/20162011 84928 005 SNOMED React ion: dizzi ness, nause a;Sev erity : Moder ate; Comme nt: had gastr ic bypas s;All ergy Type: Adver se React ion; Not Available [facility] 7 03:48:57 97929 tramadol Not available Not available Not available Not available 08/29/20162011 35187 RxNorm React ion: sweat ing;S everi ty: Moder ate; Comme nt: StopR irena : Incor rect infor matio n;All ergy Delet ed On: 09/03;A nely y Type: Adver se React ion; Nieves Agee MD Attn: Accountin g,[address] [place], [address], [facility] 9 14:30:39 89865 Product containin g angiotens in-conver ting enzyme inhibitor (product) medicatio n cough moderate Not available 08/29/20162011 09971 009 SNOMED React ion: cough ;Mayra rity: Moder ate; Comme nt: Aller gy Type: Adver se React ion; Not Available [facility] 7 03:48:57 Medications Name Sig Start Date Stop Date Status Note LastModified by Organization Details LastModified Time losartan 50 mg tablet 1 daily 06/04 completed Not Available Not Available Not Available cyclobenz aprine 10 mg tablet 1 tab po HS as needed 03/30 completed Not Available Not Available Not Available methocarb wendy 500 mg tablet Take 1 tablet(s ) by mouth qid 07/12 completed RxNorm: 179454;A llow Substitu tion: True Not Available Not Available Not Available prednison e 10 mg tablet 06/04 completed Not Available Not Available Not Available clindamyc in HCl 300 mg capsule Take 1 capsule every 6 hours by oral route for 7 days. 12/11 completed Not Available Not Available Not Available trazodone 50 mg tablet Take 1 or 2 at bedtime as needed for insomnia 06/04 completed Not Available Not Available Not Available azithromy ana laura 250 mg tablet TAKE 2 TABLETS (500 MG) BY ORAL ROUTE ONCE DAILY FOR 1 DAY THEN 1 TABLET (250 MG) BY ORAL ROUTE ONCE DAILY FOR 4 DAYS 01/04 completed Not Available Not Available Not Available benzonata te 200 mg capsule 06/04 completed Not Available Not Available Not Available valacyclo vir 1 gram tablet Take 1 tablet 3 times a day by oral route for 7 days. 06/08 completed Not Available Not Available Not Available sumatript an 100 mg tablet TAKE 1 TABLET BY MOUTH AT ONSET OF HEADACHE MAY REPEAT IN 2 HRS NEEDED MAX 2 DAILY 12/11 completed Not Available Not Available Not Available hydrocodo ne 5 mg-acetam inophen 325 mg tablet take 1-2 tabs po q 4-6 hrs prn 11/21 completed Not Available Not Available Not Available meloxicam 15 mg tablet TAKE 1 TABLET BY MOUTH EVERY DAY active Not Available Not Available No t Available ondansetr on HCl 4 mg tablet 06/04 completed Not Available Not Available Not Available prednison e 20 mg tablet TAKE 2 TABLETS BY MOUTH EVERY DAY DIRECTED FOR 3 DAYS. active Not Available Not Available No t Available spironola ctone 100 mg tablet TAKE TWO TABLETS BY MOUTH EVERY DAY active Not Available Not Available No t Available sertralin e 100 mg tablet TAKE 1 TABLET BY MOUTH EVERY DAY active Not Available Not Available No t Available prednison e 5 mg tablet TAKE TWO TABS/D X 5 DAYS, THEN 1 TAB/D X 5 DAYS, THE 0.5 TAB/D X 5 DAYS THEN STOP FOR 15 DAYS 07/10 completed Not Available Not Available Not Available clonazepa m 1 mg tablet Take 1/2 to 1 po daily prn 11/23 completed RxNorm: 936146;A llow Substitu tion: True Not Available Not Available Not Available pimecroli mus 1 % topical cream PLEASE SEE ATTACHED FOR DETAILED DIRECTIO NS 03/25 completed Not Available Not Available Not Available Diflucan 150 mg tablet Take 1 by mouth weekly x 2 11/21 completed RxNorm: 764798;A llow Substitu tion: True Not Available Not Available Not Available Atarax 10 mg tablet Take by oral route. 06/18 completed Not Available Not Available Not Available Zyrtec 10 mg tablet Take 1 tablet(s ) by mouth daily 05/26 completed RxNorm: [id number]; Allow Substitu tion: True Not Available Not Available Not Available metronida zole 500 mg tablet Take 1 tablet every 8 hours by oral route for 5 days. 12/03 completed Not Available Not Available Not Available acetamino phen 300 mg-codein e 30 mg tablet TAKE 1 TABLET BY MOUTH EVERY 6 TO 8 HOURS NEEDED 09/24 completed Not Available Not Available Not Available amlodipin e 5 mg tablet TAKE 1 TABLET BY MOUTH EVERY DAY active Not Available Not Available No t Available sulfameth oxazole 800 mg-trimet hoprim 160 mg tablet 1 po bid x 7 days 12/11 completed Not Available Not Available Not Available leflunomi de 20 mg tablet TAKE 1 TABLET BY MOUTH EVERY DAY 10/02 completed per patient this was suppose to been stopped per Rheumato logist Not Available Not Available Not Available tramadol 50 mg tablet TAKE 1 TABLET BY MOUTH TWICE A DAY NEEDED active Not Available Not Available No t Available triamcino lone acetonide 0.1 % topical cream 12/11 completed Not Available Not Available Not Available cefadroxi l 500 mg capsule TAKE 1 CAPSULE BY MOUTH TWICE A DAY 09/24 completed Not Available Not Available Not Available oxycodone -acetamin ophen 5 mg-325 mg tablet 11/21 completed Not Available Not Available Not Available amoxicill in 875 mg tablet TAKE 1 TABLET BY MOUTH EVERY 12 HOURS FOR 7 DAYS 02/27 completed Not Available Not Available Not Available alprazola m 0.25 mg tablet TAKE 1 TABLET BY MOUTH EVERY DAY NEEDED FOR 10 DAYS active Not Available Not Available No t Available methotrex ate sodium 2.5 mg tablet TAKE 8 TABLETS ONE TIME PER WEEK active Not Available Not Available No t Available dicyclomi ne 20 mg tablet 12/11 completed Not Available Not Available Not Available hydrocodo ne 7.5 mg-acetam inophen 325 mg tablet Take 1 - 2 tabs po every 4 - 6 hours prn 12/03 completed RxNorm: 409819;A llow Substitu tion: True Not Available Not Available Not Available cyanocoba melody (vit B-12) 1,000 mcg/mL injection solution INJECT 1ML SUBCUTAN EOUSLY ONCE MONTHLY active Not Available Not Available No t Available oseltamiv ir 75 mg capsule Take 1 capsule every day by oral route for 10 days. 09/23 completed Not Available Not Available Not Available ferrous sulfate 325 mg (65 mg iron) tablet Take 1 tablet(s ) by mouth daily 12/31 completed RxNorm: 279868;A llow Substitu tion: True Not Available Not Available Not Available esomepraz ole magnesium 40 mg capsule,d elayed release 06/04 completed Not Available Not Available Not Available lidocaine 5 % topical patch APPLY 1 PATCH ONTO THE SKIN ONCE A DAY FOR 15 DAYS active Not Available Not Available No t Available clobetaso l 0.05 % topical foam 03/25 completed Not Available Not Available Not Available zafirluka st 20 mg tablet 1 po bid at least 1 hour before meals or 2 hours after meals 06/04 completed Not Available Not Available Not Available folic acid 1 mg tablet TAKE 2 TABLETS BY MOUTH EVERY DAY active Not Available Not Available No t Available monteluka st 10 mg tablet Take 1 tablet(s ) by mouth daily 06/04 completed Not Available Not Available Not Available zolpidem 5 mg tablet TAKE 1 TABLET BY MOUTH EVERY NIGHT NEEDED. active Not Available Not Available No t Available ergocalci ferol (vitamin D2) 1,250 mcg (50,000 unit) capsule TAKE 1 CAPSULE BY MOUTH ONE TIME PER WEEK active Not Available Not Available No t Available insulin syringe U-100 with needle 1 mL 29 gauge x 1/2 USE DIRECTED MONTHLY WITH B12 INJECTIO NS 08/22 completed Not Available Not Available Not Available Cheratuss in AC 10 mg-100 mg/5 mL oral liquid 06/04 completed Not Available Not Available Not Available hydroxych loroquine 200 mg tablet TAKE 1 TABLET BY MOUTH TWICE A DAY active Not Available Not Available No t Available cefuroxim e axetil 500 mg tablet Take 1 tablet(s ) by mouth bid for 20 days 12/14 completed RxNorm: 656183;A llow Substitu tion: True Not Available Not Available Not Available zolpidem 10 mg tablet TAKE 1 TABLET BY MOUTH EVERY DAY 02/13 completed Not Available Not Available Not Available methylpre dnisolone 4 mg tablets in a dose pack TAKE 6 TABLETS ON DAY 1 DIRECTED ON PACKAGE AND DECREASE BY 1 TAB EACH DAY FOR A TOTAL OF 6 DAYS 09/24 completed Not Available Not Available Not Available ondansetr on 4 mg disintegr ating tablet 12/11 completed Not Available Not Available Not Available cefdinir 300 mg capsule TAKE 1 CAPSULE BY MOUTH EVERY 12 HOURS FOR 7 DAYS active Not Available Not Available No t Available fluoxetin e 20 mg capsule Take 1 capsule( s) by mouth qam 11/23 completed RxNorm: 721644;A llow Substitu tion: True Not Available Not Available Not Available fluticaso ne propionat e 50 mcg/actua tion nasal spray,kaden pension Lula 2 sprays every day by intranas al route as needed. active Not Available Not Available No t Available sertralin e 50 mg tablet Take 1 tablet(s ) by mouth daily 05/26 completed RxNorm: 971715;A llow Substitu tion: True Not Available Not Available Not Available colestipo l 1 gram tablet TAKE 2 TABLETS BY MOUTH EVERY DAY WITH PLENTY OF WATER active Not Available Not Available No t Available Vitamin D 50,000 unit capsule Take 1 capsule every week by oral route. 03/25 completed 8 weeks Not Available Not Available Not Available Rx 60 mg iron-1 mg tablet Take 1 tablet(s ) by mouth daily 03/15 completed Allow Substitu tion: True Not Available Not Available Not Available bupropion HCl XL 150 mg 24 hr tablet, extended release TAKE 1 TABLET BY MOUTH EVERY DAY 09/24 completed Not Available Not Available Not Available ferrous sulfate 07/10 completed Allow Substitu tion: True Not Available Not Available Not Available Orencia infusion once a month 09/24 completed Not Available Not Available Not Available ProAir HFA prn 09/23 completed Not Available Not Available Not Available clobetaso l-emollie nt 0.05 % topical foam APPLY TO AFFECTED AREA OF THE BODY DAILY NEEDED 09/24 completed Not Available Not Available Not Available cholecalc iferol (vitamin D3) 1,250 mcg (50,000 unit) capsule one po weekly x 12 weeks 10/03 completed Allow Substitu tion: True Not Available Not Available Not Available azelastin e 205.5 mcg (0.15 %) nasal spray Lula 2 sprays twice a day by intranas al route. 2024 active Not Available Not Available Not Avai lable PNV-DHA 27 mg iron-1 mg-300 mg capsule TAKE 1 CAPSULE BY MOUTH EVERY DAY 08/22 completed Not Available Not Available Not Available Plus (calcium carbonate ) 27 mg iron-1 mg tablet TAKE 1 TABLET BY MOUTH DAILY 09/23 completed Not Available Not Available Not Available Multivita mins Take 1 tablet(s ) by mouth daily 04/16 completed Allow Substitu tion: True Not Available Not Available Not Available Viorele (28) 0.15 mg-0.02 mg (21)/0.01 mg (5) tablet Take 1 tablet every day by oral route. 12/03 completed Not Available Not Available Not Available methotrex ate 2.5 mg tablet Take 8 tablets every week by oral route. 10/07 completed Not Available Not Available Not Available Simponi ARIA active Not Available Not Available Not Available Arnuity Ellipta 200 mcg/actua tion powder for inhalatio n daily 12/03 completed Not Available Not Available Not Available Arnuity Ellipta 100 mcg/actua tion powder for inhalatio n 06/04 completed Not Available Not Available Not Available Arnuity Ellipta 12/03 completed Allow Substitu tion: True Not Available Not Available Not Available Saxenda 3 mg/0.5 mL (18 mg/3 mL) subcutane ous pen injector active she does NOT want SAXENDA- - she wishes to use ZEP BOUND with their COUPON Not Available Not Available Not Available Humira(CF ) Pen 40 mg/0.4 mL subcutane ous kit 09/24 completed Not Available Not Available Not Available Multi-DHA (with vitamin K) 27 mg iron-800 mcg-260 mg capsule TAKE 1 CAPSULE BY MOUTH EVERY DAY 2024 active Not Available Not Available Not Avjose guadalupe labmarques ID NOW COVID-19 Test Kit TEST DIRECTED 08/28 completed Not Available Not Available Not Available Wegovy 0.25 mg/0.5 mL subcutane ous pen injector 05/20 completed Not Available Not Available Not Available Mounjaro 2.5 mg/0.5 mL subcutane ous pen injector 05/08 completed Not Available Not Available Not Available Zepbound 5 mg/0.5 mL subcutane ous pen injector Inject by subcutan eous route for 28 days. 2024 active Not Available Not Available Not Avai lable Zepbound 2.5 mg/0.5 mL subcutane ous pen injector INJECT 2.5 MG SUBCUTAN EOUSLY WEEKLY FOR 28 DAYS 05/21 completed Not Available Not Available Not Available Zepbound 7.5 mg/0.5 mL subcutane ous pen injector INJECT 7.5 MG SUBCUTAN EOUSLY ONE TIME PER WEEK FOR 28 DAYS active Not Available Not Available No t Available Vitals Date Recorded Body height Body mass index (BMI) Body weight Oxygen saturation Oxygen saturation in Arterial blood by Pulse oximetry Heart rate Body temperature Systolic blood pressure Diastolic blood pressure Provider Name and Address Organization Details Last Updated DateTime 4 160.02 cm 36.1 kg/m2 02788.8 4 g 96 % 96 % 64 /min 96.4 [degF] 121 mm[Hg] 81 mm[Hg] Irwin Huynh MA [place] - [facility] 4 12:00:18 Date Recorded Body height Body mass index (BMI) Body weight Oxygen saturation Oxygen saturation in Arterial blood by Pulse oximetry Heart rate Body temperature Systolic blood pressure Diastolic blood pressure Provider Name and Address Organization Details Last Updated DateTime 4 160.02 cm 32.2 kg/m2 94870.8 1 g 97 % 97 % 79 /min 97.5 [degF] 119 mm[Hg] 77 mm[Hg] Sowmya Forde MA [facility] 4 10:00:04 Date Recorded Body height Body mass index (BMI) Body weight Oxygen saturation Oxygen saturation in Arterial blood by Pulse oximetry Heart rate Body temperature Systolic blood pressure Diastolic blood pressure Provider Name and Address Organization Details Last Updated DateTime 4 160.02 cm 27.5 kg/m2 48419.8 2 g 96 % 96 % 72 /min 98 [degF] 117 mm[Hg] 74 mm[Hg] Rossi Tobias MA [facility] 4 14:21:20 Date Recorded Body height Body mass index (BMI) Body weight Body temperature Oxygen saturation Oxygen saturation in Arterial blood by Pulse oximetry Heart rate Systolic blood pressure Diastolic blood pressure Provider Name and Address Organization Details Last Updated DateTime 5 160.02 cm 24.4 kg/m2 21871.7 5 g 97 [degF] 99 % 99 % 66 /min 113 mm[Hg] 78 mm[Hg] Dominique Ojeda MA [facility] 5 14:02:15 Date Recorded Body height Body mass index (BMI) Body weight Body temperature Oxygen saturation Oxygen saturation in Arterial blood by Pulse oximetry Heart rate Systolic blood pressure Diastolic blood pressure Provider Name and Address Organization Details Last Updated DateTime 5 160.02 cm 22.7 kg/m2 93272.8 2 g 97.3 [degF] 99 % 99 % 86 /min 102 mm[Hg] 63 mm[Hg] Dominique Ojeda MA [facility] 5 15:41:42 Social History Question Answer Notes LastModified by Organizat ion Details LastModified Time Tobacco Smoking Status Never Smoker [facility]2016 12:44:00 Do You Have An Advance Directive? No Information not available 06/18/2024 What Is Your Level Of Alcohol Consumption? None Information not available 01/04/2021 Are You Blind Or Do You Have Difficulty Seeing? No Information not available 06/18/2024 What Is Your Level Of Caffeine Consumption? Moderate Information not available 01/04/2021 Are You Currently Employed? Yes Information not available 06/18/2024 Are You Deaf Or Do You Have Serious Difficulty Hearing? No Information not available 06/18/2024 What Type Of Diet Are You Following? REGULAR Information not available 06/18/2024 What Was The Date Of Your Most Recent Tobacco Screening? 12/18/2024 [email or web address] Information not available 12/18/2024 What Is Your Relationship Status? Information not available 06/18/2024 Do You Use Your Seat Belt Or Car Seat Routinely? Yes Information not available 06/18/2024 Do You Feel Stressed (tense, Restless, Nervous, Or Anxious, Or Unable To Sleep At Night)? [id number] Information not available 06/18/2024 Do You Use Any Illicit Or Recreational Drugs? No Information not available 01/04/2021 Has Tobacco Cessation Counseling Been Provided? No Information not available 01/04/2021 Do You Or Have You Ever Used Any Other Forms Of Tobacco Or Nicotine? No Information not available 01/04/2021 Sex: Female Functional Status Question Answer Note LastModified by Organizat ion Details LastModified Time Are you able to care for yourself? Yes Information not available 06/18/2024 What is your exercise level? Occasional Information not available 06/18/2024 Mental Status None recorded. Family History Relationship Description Onset Age of this Age Resolved Age Notes LastModified by Organization Details LastModified Time Father Coronary arterioscler osis [email or web address] Not available 2016 13:55:57 Paternal Grandmother Coronary arterioscler osis [email or web address] Not available 2016 13:55:57 Mother Malignant tumor of colon [email or web address] Not available 2016 13:56:12 Daughter Gastroesopha geal reflux disease [email or web address] Not available 2016 13:56:41 Maternal Grandmother Diabetes mellitus [email or web address] Not available 2016 13:56:56 Brother Neoplasm of pancreas 69 March [id number] Not available 06/14/2020 17:06:49 Medical History Condition Response Coronary Artery Disease N Other N High Blood Pressure N Atrial Fibrillation N Thyroid Problems N Kidney or Bladder Problems N GI Problems Y Depression Y COPD N Blood Clots N Have you had a mammogram in the last yea r? N Skin Problems N Eating Disorder N Anemia Y Heart Attack (SD) N Anxiety Disorder Y Diabetes N Muscle, Joint, or Bone Problems Y Arthritis Y Seizures/Epilepsy N Have you had a colonoscopy in the last 1 0 years? Y Acid Reflux (GERD) N Cancer N Stroke N Asthma N Allergies N ADHD N Substance Abuse N High Cholesterol N Hepatitis N Liver Disease N Schizophrenia N Headaches N Heart Failure N Osteoporosis N Gynecological History Statement/Question Response Menses Monthly N If Post Menopausal, Age at Menopause 45 On BCP's at Conception? N Obstetrics History GPAL:G 2 P 2 0 0 2 Type Value Full Term 2 Living 2 Total 2 Immunizations Vaccine Type Date Status Note Provider Nam e and Address Organization Details Recorded Time COVID-19, mRNA, LNP-S, PF, 30 mcg/0.3 mL dose 1 completed GARRISON Montanez Attn: [address] [place], [place], [address] [place] [address] [place] [facility] 05/20/2023 14:18:18 COVID-19, mRNA, LNP-S, PF, 30 mcg/0.3 mL dose 1 completed GARRISON Montanez Attn: [address] [place], [place], [address] [place] [address], [place] [facility] 05/20/2023 14:18:18 TST-PPD intradermal 1 completed Nieves Agee MD Attn: [address] [place], [address] [place] [address], [place] [facility] 08/23/2023 08:51:37 COVID-19, mRNA, LNP-S, PF, 30 mcg/0.3 mL dose 1 completed GARRISON Montanez Attn: [address] [place], [address] [place] [address], [place] [facility] 05/20/2023 14:18:18 Influenza, split virus, quadrivalent, preservative 6 completed Not Available [facility] 09/12/2019 02:32:32 Tdap 6 completed Not Available [facility] 09/12/2019 02:30:18 influenza, unspecified formulation 2 completed Nieves Agee MD Attn: [address] [place], [address], [facility] 08/23/2023 08:51:37 COVID-19, mRNA, LNP-S, bivalent, PF, 30 mcg/0.3 mL dose 2 completed GARRISON Montanez Attn: [address] [place], [address], [place] [facility] 05/20/2023 14:18:18 Influenza, split virus, quadrivalent, PF 2 completed GARRISON Montanez Attn: [address] [place], [address], [facility] 05/20/2023 14:18:18 Influenza, MDCK, trivalent, PF 5 completed Nivees Agee MD Attn: [address] [place], [address], [facility] 10/16/2024 14:08:14 Pneumococcal conjugate PCV 13 7 completed Not Available [facility] 09/12/2019 02:33:54 Influenza, split virus, quadrivalent, preservative 7 completed Not Available [facility] 09/12/2019 02:42:30 pneumococcal polysaccharide PPV23 8 completed Not Available [facility] 09/12/2019 02:36:25 Influenza, split virus, quadrivalent, preservative 8 completed Not Available [facility] 09/12/2019 02:36:29 Influenza, split virus, quadrivalent, preservative 9 completed Not Available [facility] 09/12/2019 02:38:41 Influenza, split virus, quadrivalent, preservative 0 completed Suzanne Pickens MA null, [facility] 06/24/2020 15:01:34 Influenza, split virus, quadrivalent, preservative 1 completed Didi Wallis LPN null, [place] - [facility] 05/19/2021 15:30:39 Influenza, split virus, trivalent, preservative 3 completed Nieves Agee MD Attn: [address] [facility], [place], [address], [facility] 12/07/2019 14:51:51 Influenza, split virus, trivalent, preservative 4 completed Nieves Agee MD Attn: Accounting[address] [facility], [place], [address], [facility] 12/07/2019 14:51:51 Influenza, split virus, quadrivalent, preservative 5 completed Nieves Aege MD Attn: [address] [facility], [place], [address], [facility] 12/07/2019 14:51:51 Influenza, split virus, quadrivalent, preservative 3 completed Nieves Agee MD Attn: [address]ing[address] [facility], [place], [address], [facility] 08/23/2023 08:45:11 Past Encounters Encounter ID Performer Location Encounter Start Date Encounter Closed Date Diagnosis/Indication Diagnosis SNOMED-CT Code Diagnosis ICD10 Code Diagnosis Note [id number] Nieves Agee MD [facility] [address] [facility] [place] [address] 06/04/2016 12:27:13 06/04/2016 17:47:09 Essential hypertension 89584408 I10 no change in med and you will watch low salt and exercise and lose weight Administra tion of influenza vaccine 00896999 Z23 Persistent insomnia 1919 36434 G47.09 Cont as needed ambien Administra tion of diphtheria, pertussis, and tetanus vaccine 823414672 Z23 [id number] Nieves Agee MD [facility] [address] [place] [address] 09/18/2016 14:58:18 09/19/2016 14:39:01 Diarrhea 33967406 R19.7 [id number] Nieves Agee MD [facility] [address] [place] [address] 12/03/2016 13:45:24 12/03/2016 15:15:49 Benign essential hypertension 1058320 I10 no med change and encouraged exercise / weight loss [id number] Nieves Agee MD [facility] [address] [place] [address] 03/25/2017 11:07:51 03/25/2017 14:09:21 Cobalamin deficiency 875921329 E53.8 Administra tion of pneumococcal vaccine 76398667 Z23 Long-term current use of immunosuppressive drug 579109059 Z79.899 awaiting alk phos isoenzymes Morbid obesity 525732172 E66.01 fatty liver may be ut unlikely trigger -- no elevated SGOT or PT [id number] Nieves Agee MD [facility] [address] [place] [address] 06/04/2017 13:47:50 06/04/2017 14:46:06 Persistent insomnia 667310495 G47.09 Cont as needed ambien-- discussed trial of 1/2 tab instead of full tab due to high dose Benign ess ential hypertension 5307217 I10 no med change and encouraged exercise / weight loss Administra tion of influenza vaccine 83447133 Z23 Vitamin D deficiency 347 94655 E55.9 Vitamin B deficiency 479 88890 E53.9 Thoracic back pain 00843 8004 M54.6 due to large breast size Macromastia 454967200 N6 2 [id number] Nieves Agee MD [facility] [address] [place] [address] 09/23/2017 10:42:18 09/23/2017 16:49:46 Fracture of cuneiform 890896559 S92.201A cleared for planned surgery on 10/03/17 for injection of chondrobla sts? Morbid obesity 015897037 E66.01 weight has contribute d with the healing of melissa foot injury-- you have had some weight loss with MTX Essential hypertension 41095592 I10 no change in med and you will watch low salt and exercise and lose weight Systemic l upus erythematosus 51928600 M32.9 cont care/ management with rhrumatolo gist [id number] Donya Mann MD [facility] [address] [place] [address] 11/01/2017 11:26:14 11/01/2017 14:40:39 Alkaline phosphatase above reference range 636600036 R74.8 [id number] Nieves Agee MD [facility] [address] [facility] [address] [place] [address] 11/21/2017 17:21:18 11/21/2017 18:19:19 Serum alkaline phosphatase above reference range 749470128 R74.[address] Alexander on 11/27/17 about this. THe elevation in ALk Phos has been present since Aug 2016-- varying in level. THe Isoenzymes weakly show liver isoenzyme elevation. Had liver U/S in March of 2017 Plain X-ra y of thoracic spine abnormal 273629489 R93.7 attention T 10-- abnormal bone scan and plain XRAYS are inconclusi ve. Elevated Alk Phosphatas e [id number] Nieves Agee MD [facility] [address] [facility] [address] [place] [address] 12/19/2017 13:58:06 12/20/2017 09:47:44 Benign essential hypertension 6972057 I10 no med change and encouraged exercise / weight loss Anxiety disorder 9103707 06 F41.9 no change in Zoloft-- job function and attendance is good Morbid obesity 556231993 E66.01 weight discussed Cobalamin deficiency 190 458310 E53.8 refill for monthly injections Persistent insomnia 1919 41463 G47.09 Cont as needed ambien-- discussed trial of 1/2 tab instead of full tab due to high dose [id number] Nieves Agee MD [facility] [address] [facility] [address] [place] [address] 02/13/2018 17:46:21 02/14/2018 09:45:07 Chronic thoracic back pain 2706639791 28118 M54.6 to have breast reduction mammoplast y discussed adn cleared Pre-surger y evaluation 415828609 Z01.818 to get the pre-op testing in 10 days [id number] Nieves Agee MD [facility] [address] [facility] [address] [place] [address] 06/19/2018 14:24:05 06/20/2018 09:39:06 Irritable bowel syndrome 55129140 K58.9 Benign ess ential hypertension 0469115 I10 no med change and encouraged exercise / weight loss Patient immunocompromised 785107529 D84.9 due to the decrease in your immune system-- will update the pneumonia vaccine and get the yearly flu shot Administra tion of pneumococcal vaccine 53008616 Z23 Administra tion of influenza vaccine 64661588 Z23 Insomnia 396566658 G47.0 0 now trying CBD oils and doing well with it's use [id number] Nieves Agee MD [facility] [address] [place] [address] 09/08/2018 10:50:43 09/09/2018 08:40:22 Acute urinary tract infection 351185090 N39.0 [id number] Nieves Agee MD [facility] [address] [place] [address] 09/22/2018 15:42:02 09/23/2018 08:55:18 Acute maxillary sinusitis 31689814 J01.00 the clindamyci n should be effective for respirator y and the abscess related pathogens Abscess of skin and/or subcutaneous tissue 05785348 L02.91 History of immunosuppressive therapy 579694974 Z92.25 [id number] Nieves Agee MD [facility] [address] [place] [address] 12/11/2018 14:18:30 12/12/2018 08:42:23 Benign essential hypertension 9250431 I10 no med change and encouraged exercise / weight loss Generalize d anxiety disorder 03227450 F41.1 stress reduction Pain in right knee 39328 98280 56805 M25.561 since injury for 3 months ago- likely slow to heal due to the RA Persistent insomnia 1919 90125 G47.09 Cont as needed ambien-- discussed trial of 1/2 tab instead of full tab due to high dose Vitamin D deficiency 347 03917 E55.9 Vitamin B deficiency 479 80566 E53.9 [id number] Nieves Agee MD [facility] [address] [place] [address] 04/08/2019 14:02:45 04/08/2019 15:39:08 Herpes zoster 1373142 B02.9 the forehead lesion is NOT likely related to the shingles. THe other lesions are more likely the results of shingles outbreak [id number] Nieves Agee MD [facility] [address] [place] [address] 06/08/2019 13:54:06 06/08/2019 15:04:05 Benign essential hypertension 9022552 I10 no med change and encouraged exercise / weight loss Generalize d anxiety disorder 17078636 F41.1 stress reduction Administra tion of influenza vaccine 09767732 Z23 Persistent insomnia 1919 22701 G47.09 Cont as needed ambien-- discussed trial of 1/2 tab instead of full tab due to high dose [id number] Nieves Agee MD [facility] [address] [place] [address] 10/07/2019 12:01:17 10/07/2019 15:56:10 Knee pain 70657543 M25.569 Palpable mass 743314215 R22.9 [id number] Nieves Agee MD [facility] [address] [place] [address] 12/07/2019 13:15:33 12/07/2019 16:15:47 Persistent insomnia 131525356 G47.09 Cont as needed ambien--di scussed counseling and stress reduction. Get out / fresh air Generalize d anxiety disorder 24740274 F41.1 stress reduction History of immunosuppressive therapy 498644395 Z92.25 [id number] Nieves Agee MD [facility] [address] [place] [address] 02/15/2020 11:25:55 02/15/2020 19:53:37 Pain of right shoulder joint 3415373375 5405813 M25.511 possibly impingemen t but likely strain for poor posture and poor ergonomics with work tasks Muscle spa sm of cervical muscle of neck 3922287109 04 M62.838 ice -- stretches- - ergonomica lly correct work space needed [id number] Nieves Agee MD [facility] [address] [place] [address] 02/22/2020 13:12:46 02/22/2020 15:28:46 Muscle spasm of cervical muscle of neck 2798153225 04 M62.838 ice -- stretches- - ergonomica lly correct work space needed [id number] Nieves Agee MD [facility] [address] [place] [address] 06/14/2020 13:20:52 06/15/2020 12:19:04 Persistent insomnia 267476290 G47.09 Cont as needed ambien--di scussed counseling and stress reduction. Get out / fresh air Generalize d anxiety disorder 85930864 F41.1 stress reduction and use HYDROXYZIN E as needed sparingly- - we discussed drug interactio n of TRAMADOL with SERTRALINE and patient reports stable with this combinatio n skilled nursing History of cholecystectomy 594048706 Z90.49 [id number] Nieves Agee MD [facility] [address] [facility] [address] [place] [address] 06/24/2020 14:45:04 06/27/2020 18:48:38 Administration of influenza vaccine 21068039 Z23 [id number] Nieves Agee MD [facility] [address] [facility] [address] [place] [address] 01/04/2021 09:08:13 01/05/2021 10:50:54 Persistent insomnia 897613662 G47.09 discussed and refills sent- follow up 6 mo-- sooner as needed Benign ess ential hypertension 3894825 I10 no med change and encouraged to continue with the exercise / weight loss Inflammato ry polyarthropathy 476732343 M06.4 cont to follow with the rheumatolo gist and fax/ send lab reports from last labs done for record [id number] Nieves Agee MD [facility] [address] [facility] [address] [place] [address] 03/30/2021 10:13:38 03/31/2021 09:34:21 Generalized anxiety disorder 49654674 F41.1 do not take hydroxyzin e or zolpidem if taking alprazolam . verbalized understand ingjesenia mohan offered but declined at this time.RTC in 4 weeks to reassess. Take medicines exactly as directed. Call your doctor if you think you are having a problem with your medicine. Be kind to your body: Relieve tension with exercise or a massage. Get enough rest. Avoid alcohol, caffeine, nicotine, and illegal drugs. They can increase your anxiety level and cause sleep problems. Engage your mind. Get out and do something you enjoy. Go to a funny movie, or take a walk or hike. Plan your day. Having too much or too little to do can make you anxious. Keep a record of your symptoms. Discuss your fears with a good friend or family member, or join a support group for people with similar problems. Talking to others sometimes relieves stress. Get at least 30 minutes of exercise on most days of the week to relieve stress. Walking is a good choice. You also may want to do other activities , such as running, swimming, cycling, or playing tennis or team sports. Decreased hearing 693495 001 H91.90 [id number] Nieves Agee MD [facility] [address] [place] [address] 04/27/2021 09:06:01 04/27/2021 15:04:39 Generalized anxiety disorder 09824405 F41.1 do not take hydroxyzin e or zolpidem if taking alprazolam . verbalized understand ilan marques offered states she looking into someone to see, her friends see this person and she is getting her contact info.incre ased SSRI if no response, will changeRTC in 4 weeks to reassess. Take medicines exactly as directed. Call your doctor if you think you are having a problem with your medicine. Be kind to your body: Relieve tension with exercise or a massage. Get enough rest. Avoid alcohol, caffeine, nicotine, and illegal drugs. They can increase your anxiety level and cause sleep problems. Engage your mind. Get out and do something you enjoy. Go to a funny movie, or take a walk or hike. Plan your day. Having too much or too little to do can make you anxious. Keep a record of your symptoms. Discuss your fears with a good friend or family member, or join a support group for people with similar problems. Talking to others sometimes relieves stress. Get at least 30 minutes of exercise on most days of the week to relieve stress. Walking is a good choice. You also may want to do other activities , such as running, swimming, cycling, or playing tennis or team sports. [id number] Nieves Agee MD [facility] [address] [place] [address] 05/19/2021 15:01:33 05/19/2021 16:01:40 Tuberculosis screening 338448157 Z11.1 Administra tion of influenza vaccine 08790561 Z23 [id number] Nieves Agee MD [facility] [address] [place] [address] 08/28/2021 11:04:47 08/28/2021 17:45:58 Persistent insomnia 030263113 G47.09 routine renewal-- take as directed and cont with counseling as discussed Benign ess ential hypertension 4844415 I10 no med change and encouraged to continue with the exercise / weight loss Generalize d anxiety disorder 49299790 F41.1 cont with counseling for the stress and issues with keeping 4 y/ocont with the sertraline and the bupropion for now-- higher dose was not helpful-- no dose change today Vitamin B deficiency 479 16693 E53.9 monthly renewal-- got injection yesterday so level not checked today-- CBC in Jun was OK Inflammato ry polyarthropathy 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 cont [facility] reports from June 2021 [facility] HIV screen ing declined 7508184912 22701 Z53.20 offered and declined Immunization advised 310 897705 Z71.9 advised shingles vaccine series-- immunocomp romised-- has had shingles in the past Vitamin D deficiency 347 48716 E55.9 check vit D -- was low in the past Morbid obesity 570576844 E66.01 weight discussed- - has had bariatric surgery-- maintainin g-- discussed healthy eating and exercise Reactive hypoglycemia 31 7006 E16.1 discussed diet and nutrition and risk for eventual DM over time-- [facility] [id number] Nieves Agee MD [facility] [address] [place] [address] 10/30/2021 11:02:16 10/30/2021 16:18:26 Sore throat 414499935 J02.9 rest and fluids. cont pain reliever and call if not better with treatment as directed Cough 22348644 R05.1 use GREGG over the counter every morning and 2 benedryl at night until feeling better [id number] Nieves Agee MD [facility] [address] [place] [address] 02/27/2022 09:59:13 02/27/2022 11:21:50 Benign essential hypertension 5990705 I10 no med change and encouraged to continue with the exercise / weight losssend message wtih BP readings from home and [facility] ( who sees her in person for infusions) Generalize d anxiety disorder 68065331 F41.1 discussed her counseling for the stress and issues with keeping 4 y/oI advised to cont with the sertraline and lower the bupropion dose to every other day for one month-- then 2 times a week until the tabs she has at home are finished-- will slowly taper off BUpropion Persistent insomnia 1919 38916 G47.09 routine renewal-- take as directed and cont with counseling as discussed- - will not taper off at this time Vitamin D deficiency 347 23366 E55.9 continue with weekly vit D -- stop daily-- last VIt D level was 80 [id number] Nieves Agee MD [facility] [address] [facility] [address] 09/24/2022 15:09:17 09/25/2022 12:00:14 Morbid obesity 550684849 E66.01 weight discussed- - has had bariatric surgery-- maintainin g-- discussed healthy eating and exercise Benign ess ential hypertension 8897183 I10 no med change and encouraged to continue with the exercisese nd message wtih BP readings from home and will [facility] ( who sees her in person for infusions) Generalize d anxiety disorder 75002010 F41.1 discussed her counseling for the stress and issues with keeping 4 y/oI advised to cont with the sertraline daily with the as needed other agents taken sparingly as directed History of bariatric surgical procedure 236050417 Z98.84 will check labs given BARIATRIC history to assure levels ok-- reports she is taking B 12 injections monthly History of immunosuppressive therapy 021821159 Z92.25 per Rheumatolo gist Persistent insomnia 1919 40963 G47.09 routine renewal-- take as directed and cont with counseling as discussed- - will not taper off at this time-- effective dose Long-term drug therapy 941795439 Z79.899 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-- to assure liver/ kidneys/ electrolyt es and blood counts are OK [id number] Nieves Agee MD [facility] [address] [facility] [place] [address] 03/25/2023 13:51:07 03/26/2023 09:28:17 Persistent insomnia 964690046 G47.09 routine renewal-- take as directed and cont with counseling as discussed- - will not taper off at this time-- effective dose Pain of le ft hip joint 8994318600 43283 M25.552 will XRAY the hip and knee-- if neg XRAY -- consider PT-- if abnormal-- to see ortho Pain of le ft knee joint 1692385577 56123 M25.562 will XRAY the hip and knee-- if neg XRAY -- consider PT-- if abnormal-- to see ortho Hypoglycemia 048079149 E 16.2 pt ed diet and avoiding skipping meals and avoid simple sugar-- eat some protein with each meal and snack every 4 hours Change in voice 06171817 5 R49.9 not sure if this is medically an issue-- she admits and is noted to have a normal voice at this time Body mass index 30+ - obesity 879039673 Z68.41 options discussed and she wishes to trial MOUNJARO-- if MOUNJARO is not covered-- patient will let me know alternativ es to this treatment HIV screen ing declined 4236671381 83332 Z53.20 offered and declined screen for HIV Screening mammography of bilateral breasts 9216375154 13215 Z12.31 mammogram ordered / advised History of immunosuppressive therapy 055606645 Z92.25 as per Rheumatolo gist [id number] Nieves Agee MD [facility] [address] [place] [address] 05/20/2023 14:00:09 05/21/2023 17:55:53 Diarrhea 28563320 R19.7 Given 4 weeks of symptoms will check labs and stool culturesCo ntinue BRAT diet Abnormal urine odor 8769 003 R82.90 Urine normal [id number] Nieves Agee MD [facility] [address] [place] [address] 08/22/2023 11:59:04 08/23/2023 10:33:13 Administration of influenza vaccine 78627175 Z23 flu shot advised and given today Obesity 729092543 E66.9 we discussed PHENTERMIN E/ CONTRAVE and QSYSMA and she declined any trial of these meds at this time--she is concerned about the possible HEART EFFECTS of an agent with phentermin eshe would like our office to appeal the PA denial--hernandez s phone number to fax appeal and we have a PA form for completion in chartshe has had some success with compoundin g pharmacy version of ZEPBOUND and would like to use for weight loss ( would consider bariatric procedure but prefers med management and is participat ing in dietary changes/ lifestyle changes) [id number] Nieves Agee MD [facility] [address] [place] [address] 10/31/2023 11:45:16 10/31/2023 15:39:41 History of bariatric surgical procedure 892131238 Z98.84 updated surgical history - given BARIATRIC history - reports she is taking B 12 injections monthly Body mass index 30+ - obesity 479795885 Z68.41 options discussed and she has been taking ZEPBOUND with success in controllin g appetite and weight loss. Cost of med is an issue and using savings card to assist in covering medication cost. Renewal for 30 days with 2 refills sent to pharmacyI will investigat e discount options for patient [id number] Nieves Agee MD [facility] [address] [place] [address] 01/31/2024 09:43:02 01/31/2024 12:43:09 Chronic insomnia 342685859 F51.04 no med change-- reports med is effective and will need refill in February ( next OV will be in 3 months) Body mass index 30+ - obesity 658055740 Z68.41 no med dose change-- she actually asked for dose increase and that request was denied since risk of SEs increase with dose increase. Further plans pending outcome of weight loss goals History of polyp of colon 388354863 Z86.010 due to have colon recheck in 3 years [id number] Nieves Agee MD [facility] [address] [facility] [place] [address] 06/18/2024 14:13:50 06/19/2024 12:52:25 Body mass index 30+ - obesity 941087355 Z68.41 no med dose change-- she actually asked for dose increase and that request was denied since risk of SEs increase with dose increase. Further plans pending outcome of weight loss goals Obesity 046798997 E66.9 I will cont ZEPBOUND until BMI is < 27 and gradually wean the dose to keep weight stable Low back pain 768788113 M54.50 offered and declined PT-- plans to get to the [facility] Pain of bi lateral hip joints 3469485161 4848790 M25.551 M25.552 offered and declined PT- for hip pain (?bursitis )- plans to get to the [facility] Chronic insomnia 9539986 04 F51.04 no med change-- reports med is effective and will need refill since next OV will be in 4 months instead of 2 months and only has refills for 2 months Influenza vaccination declined 676201115 Z28.21 offered and declined flu shot [id number] Nieves Agee MD [facility] [address] [facility] [place] [address] 10/16/2024 13:42:32 10/16/2024 16:00:30 Screening mammography 83659048 Z12.31 she has an appt for mammograph y in October -- no order needed Obesity 825951596 E66.9 I will slowing decrease the ZEPBOUND dose--- Further plans pending outcome of weight loss goals--BMI is < 27 and gradually wean the dose to keep weight stable Chronic insomnia 2154832 04 F51.04 no med change-- reports med is effective and will need refill since next OV will be in 3 months instead of 2 months and only has refills for 2 months Excessive skin and subcutaneous tissue 423908795 L98.7 Urgent constance sharyn to urinate 50292409 R39.15 Anterior rhinorrhea 2772 48816 J34.89 will trial with AZELATINE spray and consider the combo steroid/ antihistam ine sprays if this is not effective [id number] Nieves Agee MD [facility] [address] [facility] [place] [address] 12/18/2024 15:26:36 12/21/2024 11:47:33 Dysfunction of bilateral eustachian tubes 4849825348 585631 H69.93 Acute maxi llary sinusitis 67272829 J01.00 immunocomp romised on RA meds. No h/o pneumonia or lung disease. Get plenty of rest, push fluids, vaporizer, saline nasal spray, robitussin for cough prn, tylenol for HERNANDEZ prn, call back if persistent colored nasal drainage or sputum, fevers, sinus pain, SOB. Health Concerns Section Related Observation LastModified by Organization Detai ls LastModified Time None Recorded Concern Status LastModified by Organization Details LastModified Time None Recorded Advance Directives Directive N: Payers Encounter Date Sequence Insurance Name Policy Number Policy Villa Covered Member ID Villa Member ID Guarantor Name 10/31/2023 1 [place] [id number] Eleanor Pierre [id number] Eleanor Pierre 10/31/2023 2 [facility] ( - PPO) Eleanor Pierre [id number] Eleanor Pierre 01/31/2024 1 [place] [id number] Eleanor Pierre [id number] Eleanor Pierre 01/31/2024 2 [facility] ( - PPO) Eleanor Pierre [id number] Eleanor Pierre 06/18/2024 1 [place] [id number] Eleanor Pierre [id number] Eleanor Pierre 06/18/2024 2 [facility] ( - PPO) Eleanor Pierre [id number] Eleanor Pierre 10/16/2024 1 [place] [id number] Eleanor Pierre [id number] Eleanor Pierre 10/16/2024 2 [facility] () Eleanor Pierre [id number] Eleanor Pierre 12/18/2024 1 [place] [id number] Eleanor Pierre [id number] Eleanor Pierre 12/18/2024 2 [facility] () Eleanor Pierre [id number] Eleanor Pierre Notes Date Note Type Note Provider Name and Address Organization Details Recorded Time 4 text/html ObesityReported bypatient.Context:no inhaled steroids; no oral steroids Associated Symptoms:no depression; no chronic illness; no hypothyroidism Co-morbidities:no new co-morbidities since last visit Lifestyle changes:no changes in living situation; motivated to continue lifestyle changes; losing weight; exercising more Nutrition:eats mostly healthy diet Physical Activity:reported frequency of moderate level of physical activity per week: 2-4 days; weekly screen time (electronics) : hours (20-30mins) Medication Education:understands potential side effects; understands administration; understands role of diet as primary therapyNotes:Zepbound prescribed in Jul-- here for follow up-- she was on lowest dose but reports that she has not had injection since 10/16/23 due to cost issues*per patient she also needs to talk about the sinus stifle she has that are lingering, had covid a month ago 10/02/2023. f/u Nieves Agee MD Attn: [address] [place], [address], [place] [facility] 10/31/2023 13:45:15 4 text/html InsomniaReported bypatient.Quality:symptoms worse in the evening Severity:improving; mild Duration:present for years Onset/Timing:gradual onset Context:using medications for sleep(zolpidem);waking up very early in the morning(wakes up several times throughout the night but is able to go back to sleep) Modifying Factors:prescription medication Associated Symptoms:no anxiety; no snoring; no depression; no known sleep apnea; no pain; no dyspnea; no urinary frequency; legs do not feel restlessObesityReported bypatient.Context:no inhaled steroids; no oral steroids Associated Symptoms:no depression; no Prader-Willi Syndrome; no hypothyroidism;chronic illness(RA) Co-morbidities:overweight/o bese;hypertension Lifestyle changes:few constitutional symptoms related to diagnosis; no changes in living situation; motivated to continue lifestyle changes; exercising more;not losing weight(little) Nutrition:eats mostly healthy diet; eats low carbohydrate diet; counting and restricting calories; whole grain foods Physical Activity:reported frequency of moderate level of physical activity per week: 1-2 days Medication Education:understands potential side effects; understands administration; understands role of diet as primary therapy Nieves Agee MD Attn: [facility],[address] [place] [address], [phone], [facility] 01/31/2024 10:18:30 4 text/html ObesityReported bypatient.Context:no inhaled steroids; no oral steroids Associated Symptoms:no depression; no chronic illness; no Prader-Willi Syndrome; no hypothyroidism Co-morbidities:no new co-morbidities since last visit Lifestyle changes:no changes in living situation; motivated to continue lifestyle changes; losing weight; exercising more Nutrition:eats mostly healthy diet; eats low fat diet; eats low carbohydrate diet; restricting concentrated sugars Physical Activity:reported frequency of moderate level of physical activity per week: 2-4 days Medication Education:understands potential side effects; understands administration; understands role of diet as primary therapy pt wants to talk about her TRAMADOL-- since no longer prescribed by Dr Piña declined getting a flu shot today-- she reports she just has infusion Nieves Agee MD Attn: [facility],[address] [place] [address], [phone], [facility] 06/18/2024 16:54:42 5 text/html ObesityReported bypatient.Context:no inhaled steroids; no oral steroids Associated Symptoms:no depression; no chronic illness; no hypothyroidism Co-morbidities:no new co-morbidities since last visit Lifestyle changes:few constitutional symptoms related to diagnosis; no changes in living situation; motivated to continue lifestyle changes; losing weight;not exercising more Nutrition:eats mostly healthy diet Medication Education:understands potential side effects; understands administration; understands role of diet as primary therapyNotes:currently on ZEPBOUND 7.5 mg every 20 days and achieved an IBW-- agrees discuss to lower dose today back and hip pain is occasional -- care is per catalyst operator Nieves Agee MD Attn: [employer]ing[address] [place], [address], [facility] 10/16/2024 14:36:11 5 text/html Sinusitis/AllergyReported bypatient.Associated Symptoms:headache(pressure) ;facial pain;sinus pain;nasal discharge;ear fullness(sensitive to sound) Quality:congested(head) Duration:symptoms started last 12/10/24 Context:no recent upper respiratory infection; no recent sick contacts Alleviating factors:mucinex sinusNotes:been trying everything since last and it doesn't seem to be getting any better. I wake up with severe pressure in my face and my teeth with a bad headache, very green, thick snot and a low grade fever off and on. I have been taking Mucinex Sinus and my nose spray and drinking fluids. Pain is in her right cheek and teeth only. So much thick colored green from right nostil only. GARRISON Khoury Attn: Renée[address] [place], [address], [facility] 12/18/2024 15:57:13 OBGyn Episode No OBEpisode recorded.
--- OUTSIDE RECORDS SUMMARY | 2024-12-31 12:44 | XMS_ITS | Clinical Summary ---
Author Organization [facility] Address [address] [place] [address] Care Team Providers Care Attorney Law Clerk Name Role Phone Nieves Sears MD Primary Care Provider [phone] Source Comments [facility],non-owned Affiliates and Associated Physician Practices is amultiple site organization consisting of ambulatory clinics and hospital sitesin [place], [place], [place] and [place]. This disclosure is being madepursuant to the Care Everywhere program and may not contain all information available regarding this patient. 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 Gender Identity Not on file Sexual Orientation Not on file Plan of Treatment Health Maintenance Due Date Last Done Comments COLOGUARD (AGES 45-75) - COL ON CA SCREENING 1970 COLON MONITORING 1970 COLONOSCOPY - COLON CA SCREENING 1970 CT COLONOGRAPHY - COLON CA SCREENING 1970 Colorectal Cancer Screening 1970 FIT - COLON CA SCREENING 1970 FLEX SIG - COLON CA SCREENING 1970 LIPID TESTING 1970 MAMMOGRAM 1970 PAP SMEAR 1970 HIV SCREENING 1985 HEPATITIS C SCREENING 11/10/1988 DTAP/TDAP/TD VACCINES (1 - Tdap) 1989 HEPATITIS B VACCINE (1 of 3 - 19+ 3-dose series) 1989 PNEUMOCOCCAL VACCINE 50+ (1 of 1 - PCV) 2020 ZOSTER VACCINE (1 of 2) 2020 COVID-19 VACCINE (1 - 2023-2 5 season) 2024 DEPRESSION SCREENING 08/26/2024 INFLUENZA VACCINE (Season Ended) 2025 HIB VACCINE Aged Out No longer eligi ble based on patient's age to complete this topic HPV VACCINE Aged Out No longer eligi ble based on patient's age to complete this topic MENINGOCOCCAL (Group B) VACC INE SHARED DECISION-MAKING Aged Out No longer eligibl e based on patient's age to complete this topic MENINGOCOCCAL GROUPS A/C/Y/W VACCINE Aged Out No longer eligible b ased on patient's age to complete this topic Insurance Member Subscriber Plan / Payer (Ef fective 2004-Present) Name:Eleanor Steel Relation to Subscriber:Self Name:ELEANOR STEEL Payer ID:[id number] (NAIC) Type:PPO Address: [address] [facility] Address: [facility] CLAIMS [address] [place] [address] Care Teams Attorney Law Clerk Relationship Specialty Start Date End Date Nieves Sears MD [address] [place] [address] PCP - General Family Medicine 07/08/15
--- OUTSIDE RECORDS SUMMARY | 2024-12-31 12:44 | XMS_ITS | Clinical Summary ---
Author Organization [facility] [address] Address [address] [place] [address] Phone Care Team Providers Care Food Service Ambassador Name Role Phone Kinga Ca MD Unavailable Shannan Cristobal NP Unavailable [phone] Nieves Sears MD Primary Care Provider [phone] Allergies Active Allergy Reactions Criticality Noted Date [...] better w/ conservative measures. Recently saw the bridal consultant for the skin lesion on her left [...] in serologies. Will send in pennsaid to [facility] Follow up in 3 mo, sooner [...] PA-C Assessment & Plan (07/25/2017 1:10 PM LOCOMOTIVE ENGINEER DIESEL): On plaquenil and mtx Acute pain of [...] 02/11/2017 Assessment & Plan (07/25/2017 1:12 PM LOCOMOTIVE ENGINEER DIESEL): Worsening pain in R midfoot. xrays did [...] Diagnosed Date Resolved Date Rheumatoid arthritis of mult iple sites without rheumatoid factor 02/11/2017 05/10/2017 Encounter for long-term (cur rent) use of other medications 02/11/2017 12/04/2017 Assessment & Plan (03/13/2017 5:50 PM CDT): Check labs. Encounters Date Type Department Care Team Description 12/25/2024 2:46 PM CDT - 12/25/2024 11:59 PM CDT Hospital Encounter [facility] Diagnostic Imaging [address] [place] [address] 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 factor (HCC) Discharge Disposition: Discharge to home or self care 11/13/2024 7:29 AM CDT - 11/13/2024 11:59 PM CDT Hospital Encounter [facility] Medical Office [address] [facility] [address] [facility] [address] [place] [address] Screening mammogram, encounter for Discharge Disposition: Discharge to home or self care from Last 3 Months Surgical History Surgery Date Site/Laterality Comments OTHER SURGICAL HISTORY gastic bypass ROTATOR CUFF REPAIR rotator cuff repair THYROIDECTOMY Thyroidectomy US ABDOMEN COMPLETE W LIVER DOPPLER (C) 02/24/2018 Right BREAST SURGERY HYSTERECTOMY age 46 REDUCTION MAMMAPLASTY Bilateral 2018 Medical History Medical History Date Comments Ear problems Anxiety Autoimmune disorder Hypertension Nasal congestion Family History Medical History Relation Name Comments Heart disease Father Cancer Mother Colon cancer Mother Hypertension Other 1 Family history of Hypertension; Breast cancer Other 2 Family history of Cancer, breast; Colon cancer Other 3 Family history of Cancer, colon; Diabetes Other 4 Family history of Diabetes mellitus; Heart disease Other 5 Family history of Heart disease; Relation Name Status Comments Father Mother Other 1 Other 2 Other 3 Other 4 Other 5 Social History Tobacco Use Types Packs/Day Years Used Date Smoking Tobacco: Never Alcohol Use Standard Drinks/Week Comments Yes 0 (1 standard drink = 0.6 oz pur e alcohol) Comments No Sex and Gender Information Value Date Recorded Sex Assigned at Not on file Legal Sex Female 3:46 AM LOCOMOTIVE ENGINEER DIESEL Gender Identity Not on file Sexual Orientation Not on file Obstetrics History Para Term AB IAB SAB Ectopic Multiple Livin g Live Births 2 2 2 Date Outcome GA Total Labor Labor/2nd/3rd Weight Sex Type Anes PTL Alicia A1 A5 Name Clin Term Term Last Filed Vital Signs Vital Sign Reading [...] 04/19/2021 8:13 AM CDT Plan of Treatment Health Maintenance Due Date Last Done Comments Colon Cancer Screening-Colonoscopy 1970 Depression Screening 1970 Hepatitis B Screening 1988 Regular Well Visit/Exam 18-64 1988 Zoster Vaccine (1 of 2) 1989 Pneumococcal vaccine <65 (3 of 3 - PPSV23, PCV20 or PCV21) 06/19/2023 06/19/2018, 03/25/2017 Covid-19 Vaccine (4 - 2023-2 5 season) 2024 05/02/2021, 11/08/2020, 10/18/2020 Breast Cancer Screening-Mammogram 11/13/2025 11/13/2024, 09/20/2023, 05/19/2020, Additional history exists DTaP/Tdap/Td Vaccine (2 - Td or Tdap) 06/04/2026 06/04/2016 Cervical Cancer Screening Discontinued 02/07/2015, Hepatitis C Screening Completed 05/13/2017, 015 Influenza Vaccine Completed 09/03/2024, , 05/20/2022, Additional history exists Procedures Procedure Name Priority Date/Time Associated Diagnosis [...] Jeremiah Montague M.D. MF: DARIUSZ Report ID: [id number] Reading Location: [id number] Procedure Note Jeremiah Montague MD - 12/26/2024 [...] Jeremiah Montague M.D. MF: DARIUSZ Report ID: [id number] Reading Location: [place] [address] [address] Mary CAMPAIGN WORKER IMG XR PROCEDURES Final Result * Screening [...] age 40, based on guidelines of the [place] [employer] (ACR Practice Parameter for the Performance of Screening and Diagnostic Mammography) and [place] [employer]. For women [...] C antibody (05/13/2017 3:50 PM CDT) Pathologist [facility] Hep C Ab NON-REACTI VE NON-REACTI VE [facility] [place] SIGNAL TO CUT-OFF 0.06 <1.00 [facility] [place] 05/13/2017 3:50 PM CDT 05/13/2017 3:51 PM CDT Narrative Resulting Agency Comment Performing Organization Information: Site ID: [place] Name: [facility] Address: [address] [place] [address] Director: Jaswant Randall D.O., MPH Latasha JI LAB MICROBIOLOGY - GENERAL ORDERABLES Final Result [facility] - [place], [place] * ThinPrep Pap (02/07/2015 12:15 PM CDT) Pathologist [facility] Thin Prep Pap Smear SEE BELOW () 02/14 6:30 PM CDT [facility] HISTORICAL RESULTS Comment: Gelatin Maker Utility ThinPrep Cytology Final Report ThinPrep Pap Specimen Source Cervix/Endocervix Specimen Adequacy Satisfactory for interpretation, endocervical cells (transformation zone) present. Interpretation Negative for intraepithelial lesion or malignancy. 02/14/15 Water Resource Agent: TERA Osman(ASCP) 02/14/15 Verified By: TERA Osman(ASCP) electronic signature [facility], Department of Pathology For questions regarding this case, call ext. [phone] CPT Code(s) 88923 Clinical History LMP: [id number] : N : N IUD: N Hormone Therapy: N Postmenopausal: N Previous surgery date and type: N Hysterectomy: N Chemotherapy: N MICHELE Exposure: N Radiation: N Previous Abnormal Pap? Details: N Diagnostic or Screening Pap Test: Screening Performed by [facility], [address] [place] [id number] [email or web address], Hira Cadena MD - Lab. Director 02/07/2015 12:1 5 PM CDT 02/07/2015 4:28 PM CDT Jaswant Vega MD LAB PATHOLOGY ORDERABLE S Final Result [facility] HISTORICAL RESULTS from Last 3 Months or Most Recently Relevant to Health Maintenance Insurance [address] [facility] [place] [id number] [place] [address] CLAIMS [employer] [place] Member Subscriber Plan / Payer (Ef fective 2004-Present) Name:Eleanor Steel Relation to Subscriber:Self Name:Eleanor Steel Payer ID:[id number] (NAIC) Type: OTHER Address: [address] [place] [address] [place] [address] CLAIMS [facility] Care Teams Food Service Ambassador Relationship Specialty Start Date End Date Nieves Sears MD [address] [address] PCP - General 11/06/[place] [address] [address] Rheumatology 05/15/17 [place] [address] [facility] [address] [place] [address] Nurse Practitioner 02/13/18
--- OUTSIDE RECORDS SUMMARY | 2024-12-31 12:44 | XMS_ITS | Encounter Summary ---
Author Organization [facility] Address [address] [place] [address] Care Team Providers Care Floor Layer Apprentice Name Role Phone Nieves Sears MD Primary Care Provider [phone] Encounter Details Date Type Department Care Team (Late st Contact Info) Description 03/23/2022 Lab Requisition [facility] D[facility] Lab [address] [facility], [place] [address] Joseluis Wasserman MD [address] [place] [address] Social History Tobacco Use Types Packs/Day Years Used Date Smoking Tobacco: Never Assessed Comments Unknown Sex and Gender Information Value Date Recorded Sex Assigned at Not on file Legal Sex Female 3:28 PM SUPPLY OFFICER Gender Identity Not on file Sexual Orientation Not on file documented as of this encounter Plan of Treatment Not on file documented as of this encounter Procedures Procedure Name Priority Date/Time Associated Diagnosis Comments DERMATOPATHOLOGY Routine 03/22/2022 12:0 0 AM CDT documented in this encounter Results * DERMATOPATHOLOGY (03/22/2022 12:00 AM CDT) Case Report Dermatopathology Report Case: [id number] Authorizing Provider: Joseluis Wasserman MD Collected: 03/22/2022 12:00 AM Ordering Location: [facility] Received: 03/23/2022 04:31 PM Pathologist: Carlos Alberto Scott MD Specimen: Skin, left lateral neck 5:36 PM CDT DERMATOPATHOLOGY LABORATORY Final Diagnosis Specimen A. SKIN, left lateral neck: NEUROFIBROMA (D36.10) 5:36 PM T DERMATOPATHOLOGY LABORATORY Clinical History Nevus. Path# [id number] 5:36 PM CDT DERMATOPATHOLOGY LABORATORY Gross Description Specimen A: Received is one formalin filled container labeled with the patient's name and designated left lateral neck. The specimen consists of a shave biopsy measuring [id number] and it is bisected. Jar 0. 5:36 PM CDT DERMATOPATHOLOGY LABORATORY Microscopic Description Specimen A. SKIN, left lateral neck: Sections show a proliferation of spindled and S-shaped cells within the dermis. The stromal collagen is delicate and pale. 5:36 PM CDT DERMATOPATHOLOGY LABORATORY Disclaimer An external and internal positive and negative controls are appropriate for the histochemical, immunohistochemical and immunofluorescence stain(s) in this case (if any), except where stated explicitly. The performance characteristics of the stain(s) cited in this report were developed and its performance characteristic determined by the Dermatopathology Laboratory at [facility], directed by Dr. Marianna Scott. These tests need not be, and therefore are not, approved by the [place] Food and Drug Administration. The tests are used for clinical purposes. Billing Codes Specimen Charges Stain Charges 46074 1 2 5:36 PM CDT DERMATOPATHOLOGY LABORATORY Embedded Images 5:36 PM CDT DERMATOPATHOLOGY LABORATORY Pathology/Cytolog y TISSUE SPECIMEN FROM SKIN / Unknown 03/22/2022 03/23/2022 4:31 PM CDT us Joseluis Wasserman MD LAB - PATHOLOGY/CYTOLOGY ORDER GLORIA Final Result DERMATOPATHOLOGY LABORATORY [facility] - Department of Dermatology [address], [address] [phone] documented in this encounter Visit Diagnoses Not on filedocumented in this encounter Care Teams Floor Layer Apprentice Relationship Specialty Start Date End Date Nieves Sears MD [address] [facility] [address] [place] [address] PCP - General Family Medicine 07/08/15 documented as of this encounter
--- OUTSIDE RECORDS SUMMARY | 2024-12-31 12:44 | XMS_ITS | Continuity of Care Document ---
Author Name [facility] Organization [facility] Care Team Providers Care Desulfurizer Operator Name Role Phone [facility] Unavailable Unavailable Medications Combined list of outpatient medications from Department of Defense and Veterans Affairs facilities.Medications provided include 1) outpatient medications from the last 15 months, and 2) patient-reported medications. Medication Details Route Status Patient Instructions Prescription Expires Prescription Number Last Dispense Date Ordering Provider Order Date Order Qty Source CYANOCOBALA MIN INJECTION (cyanocobal perez (vitamin B-12)), 1000MCG/ML, VIAL, INJECTION, [employer], 1 ml VIAL Cancele d [id number] : 2023 0 Pharmac y Data Transac tion Service Facilit y HYDROXYCHLO ROQUINE SULFATE (hydroxychl oroquine sulfate), 200 MG, TABLET, ORAL, 'S LAB, 100 ea. BOTTLE Active [id number] 4 2023 180 Pharmac y Data Transac tion Service Facilit y LIDOCAINE (LIDOCAINE) , 5%(700MG), ADH. PATCH, TOPICAL, QUALITEST, 30 ea. BOX Active [id number] 4 2023 15 Pharmac y Data Transac tion Service Facilit y MELOXICAM (MELOXICAM) , 15 MG, TABLET, ORAL, [employer] 100 ea. BOTTLE Active [id number] 4 2023 30 Pharmac y Data Transac tion Service Facilit y METHOTREXAT E (methotrexa te sodium), 2.5 MG, TABLET, ORAL, AMNEAL PHARMACE, 100 ea. BOTTLE Active [id number] 4 2023 104 Pharmac y Data Transac tion Service Facilit y SPIRONOLACT ONE (SPIRONOLAC TONE), 100 MG, TABLET, ORAL, AMNEAL PHARMACE, 100 ea. BOTTLE Cancele d [id number] 4 [id number] : 2023 0 Pharmac y Data Transac tion Service Facilit y SPIRONOLACT ONE (SPIRONOLAC TONE), 100 MG, TABLET, ORAL, AMNEAL PHARMACE, 100 ea. BOTTLE Active [id number] 4 2023 180 Pharmac y Data Transac tion Service Facilit y VITAMIN D2 (ergocalcif lori (vitamin D2)), 1250 MCG, CAPSULE, ORAL, [employer] 100 ea. BOTTLE Active [id number] 4 2023 12 Pharmac y Data Transac tion Service Facilit y Social History Combined list of available smoking, tobacco, and other social history from Department of Defense and Veterans Affairs facilities. Social History Type Response Date Comment Sour e This section is an empty social history section. DoD
[2024-12-31 12:56] LABS: Hematocrit 42.8 % (37.0-47.0); Hemoglobin 13.5 g/dL (12.0-15.0); Mean Corpuscular HGB Conc 31.5 g/dl (32-36); Mean Corpuscular Hemoglobin 28.7 pg (26-34); Mean Corpuscular Volume 91.1 fl (80-100); Mean Platelet Volume 10.3 fl (7.4-10.4); Platelet Count Result 242 k/mm3 (150-375); Red Cell Distribution Width 13.4 % (11.5-14.5); White Blood Count 6.6 K/mm3 (4.5-10.0)
[2024-12-31 13:11] LABS: Iron 145 ug/dL (37-170)
[2024-12-31 13:16] LABS: Alanine Aminotransferase 40 U/L (6-35); Albumin Level 4.1 g/dL (3.5-5.1); Alkaline Phosphatase 113 U/L (38-126); Anion Gap 6 mmol/L (4-12); Aspartate Amino Transferase 43 U/L (14-36); Bilirubin,Total 0.4 mg/dL (0.2-1.3); Blood Urea Nitrogen 16 mg/dL (7-17); Calcium 9.2 mg/dL (8.4-10.2); Carbon Dioxide 27 mmol/L (22-30); Chloride 107 mmol/L (98-107); Estimated Glomerular Filt Rate > 60; Glucose 51 mg/dL (65-110); Potassium 4.6 mmol/L (3.4-5.0); Sodium 140 mmol/L (137-145)
[2024-12-31 13:17] LABS: Prealbumin 22.7 mg/dL (17.6-36.0)
[2025-01-05 21:54] LABS: Vitamin B1 22 nmol/L (8-30)
== END 2024-12-31 12:37 | disposition home or self-care (01) ==
LOC: ANHLAB 12:41
PROVIDERS: PCP Family Medicine; Visit Provider Surgery Plastic and Reconstructive Surgery
DX: R63.4 Abnormal weight loss (principal)
CPT/HCPCS: 36415; 80053; 83540; 84134; 84425; 85027

== ENCOUNTER 2025-01-13 10:33 | Outpatient (CLI) | payer OTHER, SELFPAY ==
--- NOTE | 2025-01-13 10:39 | ECG_ITS ---
Test Date: 2025-01-13 10:43:08 Measurements Intervals [place] Rate: 56 P: 55 MD: 157 QRS: 9 QRSD: 97 T: 37 QT: 435 QTc: 420 Interpretive Statements SINUS BRADYCARDIA WITH OCCASIONAL VENTRICULAR PREMATURE COMPLEXES ABNORMAL ECG No previous ECG available for comparison Electronically Signed On 01-13-2025 13:15:07 CDT by Connor Martinez M.D.
--- OUTSIDE RECORDS SUMMARY | 2025-01-13 11:09 | XMS_ITS | Referral Summary ---
Author Organization [facility] [address] Address [address] [place] [address] Phone Care Team Providers Care Sports Instructor Name Role Phone Kinga Ca MD Unavailable Shannan Cristobal NP Unavailable [phone] Nieves Sears MD Primary Care Provider [phone] Encounters Date Type Department Care Team Description 12/25/2024 2:46 PM CDT - 12/25/2024 11:59 PM CDT Hospital Encounter 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 Medical Office Bldg 1 [facility] [address] [facility] [address] [place] [address] Screening mammogram, encounter for Discharge Disposition: Discharge [...] better w/ conservative measures. Recently saw the chiller tender for the skin lesion on her left [...] in serologies. Will send in pennsaid to [facility] Follow up in 3 mo, sooner [...] PA-C Assessment & Plan (07/25/2017 1:10 PM ON AIR HOST): On plaquenil and mtx Acute pain of [...] 02/11/2017 Assessment & Plan (07/25/2017 1:12 PM ON AIR HOST): Worsening pain in R midfoot. xrays did [...] Diagnosed Date Resolved Date Rheumatoid arthritis of [facility] without rheumatoid factor 02/11/2017 05/10/2017 [...] on file Legal Sex Female 3:46 AM ON AIR HOST Gender Identity Not on file Sexual Orientation [...] Jeremiah Montague M.D. MF: DARIUSZ Report ID: [id number] Reading Location: [id number] Procedure Note Jeremiah Montague MD - 12/26/2024 [...] Jeremiah Montague M.D. MF: DARIUSZ Report ID: [id number] Reading Location: [id number] Sabine Hernandez NOTE TAKER IMG XR PROCEDURES Final Result * Screening [...] age 40, based on guidelines of the [place] [employer] (ACR Practice Parameter for the Performance of Screening and Diagnostic Mammography) and [place] [employer]. For women [...] Hep C Ab NON-REACTI VE NON-REACTI VE [facility] SIGNAL TO CUT-OFF 0.06 <1.00 [facility] 05/13/2017 3:50 PM CDT 05/13/2017 3:51 PM CDT Narrative Resulting Agency Comment Performing Organization Information: Site ID: [place] Name: [facility] Address: [address] [place] [address] Director: Jaswant Randall D.O., MPH Latasha JI LAB MICROBIOLOGY - GENERAL ORDERABLES Final Result [facility] - [place], [place] * ThinPrep Pap (02/07/2015 12:15 PM CDT) Pathologist [facility] Thin Prep Pap Smear SEE BELOW () 02/14 6:30 PM CDT [facility] HISTORICAL RESULTS Comment: Barge Loader ThinPrep Cytology Final Report ThinPrep Pap Specimen Source Cervix/Endocervix Specimen Adequacy Satisfactory for interpretation, endocervical cells (transformation zone) present. Interpretation Negative for intraepithelial lesion or malignancy. 02/14/15 Gold Nib Grinder: TERA Osman(ASCP) 02/14/15 Verified By: TERA Osman(ASCP) electronic signature [facility], Department of Pathology For questions regarding this case, call ext. [phone] CPT Code(s) 25680 Clinical History LMP: [id number] : N : N IUD: N Hormone Therapy: N Postmenopausal: N Previous surgery date and type: N Hysterectomy: N Chemotherapy: N MICHELE Exposure: N Radiation: N Previous Abnormal Pap? Details: N Diagnostic or Screening Pap Test: Screening Performed by [facility], [address] [place] [id number] [email or web address], Hira Cadena MD - Lab. Director 02/07/2015 12:1 5 PM CDT 02/07/2015 4:28 PM CDT Jaswant Vega MD LAB PATHOLOGY ORDERABLE S Final Result [facility] HISTORICAL RESULTS from Last 3 Months or Most Recently Relevant to Health Maintenance Insurance COUNT INCLUDES THE [facility]S [employer] [place] [facility] [place]S [employer] [place] [facility] CLAIMS COUNT INCLUDES THE [facility] Care Teams Sports Instructor Relationship Specialty Start Date End Date Nieves Sears MD [address] [address] PCP - General 11/06/19 [place] [address] [facility] [address] [place] [address] Rheumatology 05/15/17 [place] [address] [facility] [address] [place] [address] Nurse Practitioner 02/13/18
--- OUTSIDE RECORDS SUMMARY | 2025-01-13 11:09 | XMS_ITS | Clinical Summary ---
Author Organization [facility] [address] Address [address] [place] [address] Phone Care Team Providers Care Central Supply Assistant Name Role Phone Kinga Ca MD Unavailable Shannan Cristobal NP Unavailable [phone] Nieves Sears MD Primary Care Provider [phone] Allergies Active Allergy Reactions Criticality Noted Date [...] better w/ conservative measures. Recently saw the nursing services manager for the skin lesion on her left [...] in serologies. Will send in [facility]aid to [facility] Follow up in 3 mo, sooner [...] PA-C Assessment & Plan (07/25/2017 1:10 PM PROBATE CLERK): On plaquenil and mtx Acute pain of [...] 02/11/2017 Assessment & Plan (07/25/2017 1:12 PM PROBATE CLERK): Worsening pain in R midfoot. xrays did [...] - 12/25/2024 11:59 PM CDT Hospital Encounter [facility] [address] [place] [address] 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 factor (HCC) Discharge Disposition: Discharge to home or self care 11/13/2024 7:29 AM CDT - 11/13/2024 11:59 PM CDT Hospital Encounter [facility] [address] [facility] [address] [facility] [address] [place] [address] Screening mammogram, encounter for Discharge Disposition: Discharge [...] on file Legal Sex Female 3:46 AM PROBATE CLERK Gender Identity Not on file Sexual Orientation [...] Jeremiah Montague M.D. MF: DARIUSZ Report ID: [id number] Reading Location: [id number] Procedure Note Jeremiah Montague MD - 12/26/2024 [...] Jeremiah Montague M.D. MF: DARIUSZ Report ID: [id number] Reading Location: [place] [address] [address] [facility] IMG XR PROCEDURES Final Result * Screening [...] age 40, based on guidelines of the [employer] (ACR Practice Parameter for the Performance of Screening and Diagnostic Mammography) and [employer]. For women [...] C antibody (05/13/2017 3:50 PM CDT) Pathologist [facility] Hep C Ab NON-REACTI VE NON-REACTI VE [facility] [place] SIGNAL TO CUT-OFF 0.06 <1.00 [facility] [place] 05/13/2017 3:50 PM CDT 05/13/2017 3:51 PM CDT Narrative Resulting Agency Comment Performing Organization Information: Site ID: [place] Name: [facility] Address: [address] [place] [address] Director: Jaswant Randall D.O., MPH Latasha [facility] LAB MICROBIOLOGY - GENERAL ORDERABLES Final Result [facility] [place] * ThinPrep Pap (02/07/2015 12:15 PM CDT) Pathologist [facility] Thin Prep Pap Smear SEE BELOW () 02/14 6:[address] [facility] HISTORICAL RESULTS Comment: Public Relations Analyst ThinPrep Cytology Final Report ThinPrep Pap Specimen Source Cervix/Endocervix Specimen Adequacy Satisfactory for interpretation, endocervical cells (transformation zone) present. Interpretation Negative for intraepithelial lesion or malignancy. 02/14/15 Etcher Apprentice: TERA Osman(ASCP) 02/14/15 Verified By: TERA Osman(ASCP) electronic signature [facility], Department of Pathology For questions regarding this case, call ext. [phone] CPT Code(s) 18483 Clinical History LMP: [id number] : N : N IUD: N Hormone Therapy: N Postmenopausal: N Previous surgery date and type: N Hysterectomy: N Chemotherapy: N MICHELE Exposure: N Radiation: N Previous Abnormal Pap? Details: N Diagnostic or Screening Pap Test: Screening Performed by [employer] [employer], [address] [place] [id number] [email or web address], Hira Cadena MD - Lab. Director 02/07/2015 12:1 5 PM CDT 02/07/2015 4:28 PM CDT Jaswant Vega MD LAB PATHOLOGY ORDERABLE S Final Result [facility] HISTORICAL RESULTS from Last 3 Months or Most Recently Relevant to Health Maintenance Insurance [employer] [facility] [place] [id number] [place] [address] Member Subscriber Plan / Payer (Ef fective 2004-Present) Name:Eleanor Steel Relation to Subscriber:Self Name:Eleanor Steel Payer ID:[id number] (NAIC) Type: OTHER Address: [address] [place] [id number] [place] [address] CLAIMS [facility] Care Teams Central Supply Assistant Relationship Specialty Start Date End Date Nieves Sears MD [address] [address] PCP - General 11/06/19 [place] [address] [address] Rheumatology 05/15/17 [place] [address] [facility] [address] [place] [address] Nurse Practitioner 02/13/18
--- OUTSIDE RECORDS SUMMARY | 2025-01-13 11:09 | XMS_ITS | Data Portability ---
Author Organization [facility]ES[facility]th [facility] Address [address] [place] [address] Care Team Providers Care [employer] Science Tutor Name Role Phone NIEVES AGEE Primary Care Provider STEFAN CELESTIN Orthopedic Surgeon [facility] Music Therapist Assessment No assessment recorded. Plan of Treatment Reminders Order Date Submit Date Provider Last Modified By Organization Details Last Modified Time Details Appointments ANY 15 2024 09:15A M Nieves Agee MD Not available Not available Not available Lab urinaly sis, dipstic k 2024 025 VANITA In-Office Order, Internal Use Only DO Not Attach Compendium DO Not Attach Compendium, Do Not Delete/merge, [id number] 10/16/2024 14:52:30 culture , urine 2024 025 VANITA [facility], [address] [place] [address], [address], 10/17/2024 21:20:50 Referral plastic surgeon rhonda hung - she prefers the [facility] plastic surgery departm ent for consult ation 2024 025 [facility], [address] [place], [address], 11/26/2024 15:42:08 Procedures None recorde d. Surgeries None recorde d. Imaging None recorde d. Medication Orders prednis one 20 mg tablet 2024 025 [facility][id number], [address], [place], [address], 12/18/2024 15:56:12 cefdini r 300 mg capsule 2024 025 [facility][id number], [address], [place], [address], 12/18/2024 15:56:12 Zepboun d 5 mg/0.5 mL subcuta neous pen injecto r 2024 025 [place] [address], [address], 10/16/2024 14:34:35 azelast ine 205.5 mcg (0.15 %) nasal spray 2024 025 [place] [address], [address], 10/16/2024 14:34:35 zolpide m 5 mg tablet 2024 025 [place] [address], [address], 10/16/2024 14:34:36 Zepboun d 7.5 mg/0.5 mL subcuta neous pen injecto r 2023 024 [place] [address], [address], 06/18/2024 15:13:00 zolpide m 5 mg tablet 2023 024 [place] [address], [address], 06/18/2024 15:13:09 zolpide m 5 mg tablet 2023 024 [facility] [place] [address], [address], 01/31/2024 10:13:40 Zepboun d 5 mg/0.5 mL subcuta neous pen injecto r 2023 024 [facility] [address] [place] [address], [address], 05/21/2024 13:23:59 Zepboun d 5 mg/0.5 mL subcuta neous pen injecto r 2023 024 [facility] [address] [place] [address], [address], 05/21/2024 13:23:45 Patient TargetsNo targets recorded. Patient Instructions Encounter Date Encounter Id Patient Instructions Last Modified By Organization Details Last Modified Time 10/31/2023 [id number] body mass index: care instructions Not available 10/31/2023 12:55:17 learning about healthy weight Not available 10/31/2023 12:55:17 01/31/2024 [id number] A healthy lifestyle: care instructions Not available 01/31/2024 10:13:35 06/18/2024 [id number] body mass index: care instructions Not available 06/18/2024 15:12:52 learning about healthy weight Not available 06/18/2024 15:12:52 10/16/2024 [id number] dietary bladder irritants Not available 10/16/2024 14:34:33 Reason for Referral Plastic Surgeon Referral for Excessive skin and subcutaneous tissue she prefers the [facility] plastic surgery department for consultation Referring Physician: Nieves Agee, Family Medicine, Encounter Date: 10/16/2024 Results Created Date Observation Date Name Description Value Unit Range Abnormal Flag Note LastModifiedBy Organization Detail LastModifiedTime 01/10/20 24 01/12/2024 HEPAT IC FUNCT ION PANEL protein, total 6.4 g/dL 6.1-8. 1 normal Not Available [address], [address], 01/12/2024 12:19:13 01/10/20 24 01/12/2024 HEPAT IC FUNCT ION PANEL albumin 3.9 g/dL 3.6-5. 1 normal Not Available [address], [address], 01/12/2024 12:19:13 01/10/20 24 01/12/2024 HEPAT IC FUNCT ION PANEL globulin 2.5 g/dL_ (calc ) 1.9-3. 7 normal Not Available [address], [address], 01/12/2024 12:19:13 01/10/20 24 01/12/2024 HEPAT IC FUNCT ION PANEL albumin/glob ulin ratio 1.6 (calc ) 1.0-2. 5 normal Not Available [address], [address], 01/12/2024 12:19:13 01/10/20 24 01/12/2024 HEPAT IC FUNCT ION PANEL bilirubin, total 0.4 mg/dL 0.2-1. 2 normal Not Available [address], [address], 01/12/2024 12:19:13 01/10/20 24 01/12/2024 HEPAT IC FUNCT ION PANEL bilirubin, direct 0.1 mg/dL < or = 0.2 normal Not Available [address], [address], 01/12/2024 12:19:13 01/10/20 24 01/12/2024 HEPAT IC FUNCT ION PANEL bilirubin, indirect 0.3 mg/dL _(kalie c) 0.2-1. 2 normal Not Available [address], [address], 01/12/2024 12:19:13 01/10/20 24 01/12/2024 HEPAT IC FUNCT ION PANEL alkaline phosphatase 104 U/L 37-153 normal Not Available [facility] [place] [address] [place], [address], 01/12/2024 12:19:13 01/10/20 24 01/12/2024 HEPAT IC FUNCT ION PANEL AST 41 U/L 10-35 high Not Available [place] [address] [place], [address], 01/12/2024 12:19:13 01/10/20 24 01/12/2024 HEPAT IC FUNCT ION PANEL ALT 25 U/L 6-29 normal Not Available [address], [address], 01/12/2024 12:19:13 01/10/20 24 01/12/2024 VITAM IN [...] /MS is recom shanice d: order code 46639 (cherry ents >2yrs ). See Note 1 Note 1 For addit ional infor thai rodriguez refer to http: //dusty pinzonQue stDia gnost ics.c om/fa q/FAQ 199 (This link is being provi ded for infor michoacano beyer/ nyasia hung purpo ses only. ) Not Available [facility] [employer] [address] [place], [address], 01/12/2024 12:19:15 10/16/19 25 10/17/2024 CULTU RE, URINE , ROUTI NE culture, urine, routine SEE NOTE CULTU RE, URINE , ROUTI NE Micro Numbe r: [id number] Test Statu s: Final Speci men Sourc e: Urine Speci men Quali ty: Adequ ate Resul t: Mixed genit al zayra isola campbell. These super ficia l bacte edilberto are not indic ative of a urina ry tract infec tion. No furth er organ ism ident ifica tion is warra nted on this speci men. If clini ana indic ated, recol lect clean -catc h, mid-s tream urine and trans emily immed iatel y to Urine Cultu re Trans port Tube. Not Available [place] [address] [place], [address], 10/17/2024 21:20:50 10/16/19 25 10/16/2024 urina lysis [...] 10/16/2024 urina lysis , dipst ick Specific [place] 1.015 Not Available In-Off ice Order Internal [...] DO Not Attach Compendium, Do Not Delete/merge, [id number] 10/16/2024 14:30:44 11/14/19 25 11/13/2024 MAMMO , rajendra burger No observ ation record ed. [facility] [address] [place], [address], 11/13/2024 12:37:25 Result Notes None recorded. Problems Name Problem SNOMED Code Status Onset Date Resolution Date Notes Provider Name and Address Organization Details Recorded Time History of bariatri c surgical procedur e 971126712 Active 2017 Nieves Agee MD Attn: Accounting ,[address] [place], [place], [address] [place] [address] , [facility] 2 10:53:53 History of immunosu ppressiv e therapy 124410083 Active 2018 Nieves Agee MD Attn: Accounting ,[address] [place], [place], [address] [place] [address] , [facility] 2 10:53:55 Persiste nt insomnia 386835044 Active 2020 Nieves Agee MD Attn: Accounting ,[address] [place], [place], [address] [place] [address] , [facility] 2 10:54:13 Reactive hypoglyc emia 102447 Completed 202101/31/2024 Nieves Agee MD Attn: Accounting ,[address] [place], [place], [address] [place] [address] , [facility] 4 10:17:25 Divertic ulosis of colon 389875558 Active 2023 Nieves Agee MD Attn: Accounting ,[address] [place], [place], [address] [place] [address] , [facility] 4 07:51:43 History of polyp of colon 560231997 Active 2023 tubular adenoma 01/14/24- - recheck THREE YEARS Nieves Agee MD Attn: Accounting ,[address] [place], [address] , [place] [facility] 4 07:36:41 Chronic insomnia 745561328 Active 2023 Nieves Aege MD Attn: Accounting ,[address] [place], [address] , [place] [facility] 4 10:17:30 Body mass index 30+ - obesity 260222253 Completed 202310/16/2024 Nieves Agee MD Attn: Accounting ,[address] [place], [address] , [place] [facility] 5 14:12:04 Irritabl e bowel syndrome 81086742 Active Nieves Agee MD Attn: Accounting ,[address] [place], [address] , [place] [facility] 2 10:54:00 Anxiety disorder 248087181 Completed 06/19/2018 Nieves Agee MD Attn: Accounting ,[address] [place], [address] , [place] [facility] 8 14:56:08 Cobalami n deficien cy 351325381 Completed 06/19/2018 Nieves Agee MD Attn: Accounting ,[address] [place], [address] , [place] [facility] 8 14:56:12 Vitamin D deficien cy 60824055 Completed 01/31/2024 Removal Reason: result 96 on 12/2023 Nieves Agee MD Attn: Accounting ,[address] [place], [address] , [place] [facility] 4 10:18:00 Sciatica 05190742 Completed 201408/18/2015 Location : None;Sev erity: Moderate ;Progres s: Stable;A dded By: Eleanor Leavitt;Add to Current Problems : YES Not Available [facility] 7 09:39:40 Hemorrha ge of rectum and anus 822104060 Completed 201207/23/2013 Location : None;Sev erity: Moderate ;Progres s: Stable;A dded By: Nieves Agee;Add to Current Problems : NO Not Available [facility] 7 09:39:40 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 773319500 Completed 201310/04/2013 Location : None;Sev erity: Moderate ;Progres s: Stable;A dded By: Nieves Agee;Add to Current Problems : NO Not Available [facility] 09:39:40 Disorder of rotator cuff 195001852 Completed 201303/18/2014 Location : None;Sev erity: Moderate ;Progres s: Stable;A dded By: Nieves Agee;Add to Current Problems : NO Not Available [facility] 09:39:40 Localize d, 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 099846911 Active 2013 Location : None;Sev erity: Moderate ;Progres s: Stable;A dded By: Nieves Agee;Add to Current Problems : NO Nieves Agee MD Attn: Accounting ,[address] [place], [address] , [facility] 0 14:51:31 Pain in limb 67229421 Active 2014 Location : None;Sev erity: Moderate ;Progres s: Stable;A dded By: Nieves Agee;Add to Current Problems : YES Nieves Agee MD Attn: Accounting ,[address] [place], [address] , [facility] 0 14:51:31 Dyssomni a 57933365 Completed 201405/15/2015 Location : None;Sev erity: Moderate ;Progres s: Stable;A dded By: Nieves Agee;Add to Current Problems : YES Not Available [facility] 7 09:39:41 Vitamin B deficien cy 90618300 Active 2011 Location : None;Sev erity: Moderate ;Progres s: Stable;A dded By: Nieves Agee;Add to Current Problems : YES Nieves Agee MD Attn: Accounting ,[address] [facility], [place], [place], [address] [place] [address] , [facility] 0 14:51:31 Clinical finding Completed 201512/19/2017 Location : None;Sev erity: Moderate ;Progres s: Stable;A dded By: Nieves Agee;Add to Current Problems : YES Nieves Agee MD Attn: Accounting ,[address] [facility], [place], [place], [address] [place] [address] , [facility] 8 14:53:28 Migraine without aura 12008784 Active 2015 Location : None;Sev erity: Moderate ;Progres s: Stable;A dded By: Nieves Agee;Add to Current Problems : YES Nieves Agee MD Attn: Accounting ,[address] [place], [place], [address] [place] [address] , [facility] 0 14:51:31 Generali zed anxiety disorder 09728672 Active 2013 Location : None;Sev erity: Moderate ;Progres s: Stable;A dded By: Nieves Agee;Add to Current Problems : YES Nieves Agee MD Attn: Accounting ,[address] [facility], [place], [place], [address] [place] [address] , [facility] 0 14:51:31 Benign essentia l hyperten vesta 4420356 Active 2011 Location : None;Sev erity: Moderate ;Progres s: Stable;A dded By: Nieves Agee;Add to Current Problems : YES Nieves Agee MD Attn: Accounting ,[address] [facility], [place], [place], [address] [place] [address] , [facility] 0 14:51:31 Neck pain 33323837 Completed 201301/12/2016 Location : None;Sev erity: Moderate ;Progres s: Stable;A dded By: Eleanor Leavitt;Add to Current Problems : YES Not Available [facility] 7 09:39:41 General symptom 415715687 Completed 201312/19/2017 Location : None;Sev erity: Moderate ;Progres s: Stable;A dded By: Taniya Espinal;Add to Current Problems : YES Nieves Agee MD Attn: Accounting ,[address] [place], [address] , [facility] 8 14:53:22 Shoulder joint pain 559122463 Completed 201306/20/2014 Location : None;Sev erity: Moderate ;Progres s: Stable;A dded By: Taniya Espinal;Add to Current Problems : YES Not Available [facility] 7 09:39:41 Acute cystitis 73846219 Completed 201410/23/2014 Location : None;Sev erity: Moderate ;Progres s: Stable;A dded By: Taniya Espinal;Add to Current Problems : YES Not Available [facility] 7 09:39:41 Headache 73620152 Completed 201309/23/2014 Location : None;Sev erity: Moderate ;Progres s: Stable;A dded By: Keli Ellison;Add to Current Problems : YES Not Available [facility] 7 09:39:41 Chest pain 39072016 Completed 201502/06/2016 Location : None;Sev erity: Moderate ;Progres s: Stable;A dded By: Lexy Valenzuela; Add to Current Problems : NO Not Available [facility] 7 09:39:41 Head and neck swelling 873134944 Completed 201502/12/2016 Location : None;Sev erity: Moderate ;Progres s: Stable;A dded By: Lexy Valenzuela; Add to Current Problems : YES Not Available [facility] 7 09:39:41 Acute sinusiti s 64003291 Completed 201301/14/2014 Location : None;Sev erity: Moderate ;Progres s: Stable;A dded By: Helen Kumar i;Afsaneh dd to Current Problems : NO Not Available [facility] 7 09:39:41 Transien t insomnia 369567956 Completed 201301/14/2014 Location : None;Sev erity: Moderate ;Progres s: Stable;A dded By: Helen Kumar i;Afsaneh dd to Current Problems : NO Not Available [facility] 7 09:39:42 Acute upper respirat ory infectio n of multiple sites Completed 201310/22/2013 Location : None;Sev erity: Moderate ;Progres s: Stable;A dded By: Taniya Espinal;Add to Current Problems : NO Not Available [facility] 7 09:39:42 Acute sinusiti s 91822646 Completed 201310/22/2013 Location : None;Sev erity: Moderate ;Progres s: Stable;A dded By: Donya Mann;Add to Current Problems : NO Not Available [facility] 7 09:39:42 Clinical finding Completed 201405/23/2015 Location : None;Sev erity: Moderate ;Progres s: Stable;A dded By: Dulce Maria Arevalo;Add to Current Problems : NO Not Available [facility] 7 09:39:42 Venereal disease screenin g Completed 201108/28/2012 Location : None;Sev erity: Moderate ;Progres s: Stable;A dded By: Eleanor Leavitt;Add to Current Problems : NO Not Available [facility] 7 09:39:42 Family history of malignan t neoplasm of gastroin testinal tract 994286194 Active 2011 Location : None;Sev erity: Moderate ;Progres s: Stable;A dded By: Nieves Agee;Add to Current Problems : NO Nieves Agee MD Attn: Accounting ,[address] [place], [address] , [facility] 0 14:51:31 Problem Notes None recorded. Procedures Surgical History Date Name Laterality Status Provider Name and Address Organization Details Recorded Time 09/22/19 19 I&D completed Nieves Agee MD Attn: Accounting,[address] [place], [address], [facility] 09/22/2018 16:50:48 03/04/20 18 Breast Surgery completed Nieves Agee MD Attn: Accounting,[address] [facility], [place], [address], [facility] 03/06/2018 09:36:56 10/03/19 18 Ankle/Foot Surgery completed Nieves Agee MD Attn: Accounting,[address] [facility], [place], [address], [facility] 10/31/2023 09:20:04 09/04/19 17 Total hysterectomy completed Neives Agee MD Attn: Accounting,[address] [facility], [place], [address], [facility] 10/31/2023 09:19:11 05/25/19 98 bariatric operative procedure completed Nieves Agee MD Attn: Accounting,[address] [facility], [place], [address], [facility] 10/31/2023 12:53:45 Cholecystectomy completed Delmis Xiong [facility] 03/22/2017 13:54:47 Hernia Repair completed Delmis Xiong [facility] 03/22/2017 13:55:00 Caesarean Section completed Ema Xiong [facility] 03/22/2017 13:55:17 Removal of thyroid completed Jacky Xiong [facility] 03/22/2017 13:55:38 Imaging Results Imaging Date Name Status LastModified by Organiz ation Details LastModified Time 11/13/2024 MAMMO, screening, bilateral completed [facility] [address] [place] [address], [address], 11/13/2024 12:37:25 Procedure Notes None recorded. Medical Equipment None Reported. Allergies Allergen ID Allergen Name Allergen Category Reaction Reaction Severity Criticality Documentation Date Start Date Code Code System Note Provider Name and Address Organization Details Recorded Time 066810 Humira medicatio n itching swelling Not available Not available low 09/24/2022 30953 4 RxNorm Nieves Agee MD Attn: Accountin g,[address] [facility], [place], [address], [facility] 3 16:24:03 65544 lisinopri l medicatio n cough Not available Not available 06/04/[address] [address] [facility] 12:41:35 16012 Non-stero idal anti-infl ammatory agent (product) medicatio n dizziness moderate Not available 08/29/20162011 70269 005 SNOMED React ion: dizzi ness, nause a;Sev erity : Moder ate; Comme nt: had gastr ic bypas s;All ergy Type: Adver se React ion; Not Available [facility] 7 03:48:57 49131 tramadol Not available Not available Not available Not available 08/29/20162011 17029 RxNorm React ion: sweat ing;S everi ty: Moder ate; Comme nt: StopR irena : Incor rect infor matio n;All ergy Delet ed On: 09/03;A nely y Type: Adver se React ion; Nieves Agee MD Attn: Accountin g,[address] [place], [address], [facility] 9 14:30:39 90651 Product containin g angiotens in-conver ting enzyme inhibitor (product) medicatio n cough moderate Not available 08/29/20162011 69293 009 SNOMED React ion: cough ;Mayra rity: Moder ate; Comme nt: Aller gy Type: Adver se React ion; Not Available [facility] 7 03:48:57 Medications Name Sig Start Date [...] ) by mouth qid 07/12 completed RxNorm: 858608;A llow Substitu tion: True Not Available Not [...] 1 po daily prn 11/23 completed RxNorm: 677395;A llow Substitu tion: True Not Available Not Available Not Available pimecroli mus 1 % topical cream PLEASE SEE ATTACHED FOR DETAILED DIRECTIO NS 03/25 completed Not Available Not Available Not Available Diflucan 150 mg tablet Take 1 by mouth weekly x 2 11/21 completed RxNorm: 996735;A llow Substitu tion: True Not Available Not Available Not Available Atarax 10 mg tablet Take by oral route. 06/18 completed Not Available Not Available Not Available Zyrtec 10 mg tablet Take 1 tablet(s ) by mouth daily 05/26 completed RxNorm: 6901072; Allow Substitu tion: True Not Available Not [...] - 6 hours prn 12/03 completed RxNorm: 916699;A llow Substitu tion: True Not Available Not [...] ) by mouth daily 12/31 completed RxNorm: 375166;A llow Substitu tion: True Not Available Not [...] bid for 20 days 12/14 completed RxNorm: 935306;A llow Substitu tion: True Not Available Not [...] s) by mouth qam 11/23 completed RxNorm: 650738;A llow Substitu tion: True Not Available Not Available Not Available fluticaso ne propionat e 50 mcg/actua tion nasal spray,kaden pension [place] 2 sprays every day by intranas al route as needed. active Not Available Not Available No t Available sertralin e 50 mg tablet Take 1 tablet(s ) by mouth daily 05/26 completed RxNorm: 327631;A llow Substitu tion: True Not Available Not [...] e 205.5 mcg (0.15 %) nasal spray [place] 2 sprays twice a day by intranas [...] Updated DateTime 4 160.02 cm 36.1 kg/m2 06069.8 4 g 96 % 96 % 64 [...] Updated DateTime 4 160.02 cm 32.2 kg/m2 13104.8 1 g 97 % 97 % 79 /min 97.5 [degF] 119 mm[Hg] 77 mm[Hg] Sowmya Forde [facility] 4 10:00:04 Date Recorded Body height Body mass index (BMI) Body weight Oxygen saturation Oxygen saturation in Arterial blood by Pulse oximetry Heart rate Body temperature Systolic blood pressure Diastolic blood pressure Provider Name and Address Organization Details Last Updated DateTime 4 160.02 cm 27.5 kg/m2 53198.8 2 g 96 % 96 % 72 /min 98 [degF] 117 mm[Hg] 74 mm[Hg] Rossi Tobias [facility] 4 14:21:20 Date Recorded Body height Body mass index (BMI) Body weight Body temperature Oxygen saturation Oxygen saturation in Arterial blood by Pulse oximetry Heart rate Systolic blood pressure Diastolic blood pressure Provider Name and Address Organization Details Last Updated DateTime 5 160.02 cm 24.4 kg/m2 24773.7 5 g 97 [degF] 99 % 99 % 66 /min 113 mm[Hg] 78 mm[Hg] Dominique Ojeda [facility] 5 14:02:15 Date Recorded Body height Body mass index (BMI) Body weight Body temperature Oxygen saturation Oxygen saturation in Arterial blood by Pulse oximetry Heart rate Systolic blood pressure Diastolic blood pressure Provider Name and Address Organization Details Last Updated DateTime 5 160.02 cm 22.7 kg/m2 50092.8 2 g 97.3 [degF] 99 % 99 % 86 /min 102 mm[Hg] 63 mm[Hg] Dominique Ojeda MA [facility] 5 15:41:42 Social History Question Answer Notes LastModified by Organizat ion Details LastModified Time Tobacco Smoking Status Never Smoker [facility] 06/04/2016 12:44:00 Do You Have An Advance Directive? No Information not available 06/18/2024 Are You Blind Or Do You Have Difficulty Seeing? No Information not available 06/18/2024 What Is Your Level Of Caffeine Consumption? Moderate Information not available 01/04/2021 Are You Deaf Or Do You Have [...] Seat Routinely? Yes Information not available 06/18/2024 Has Tobacco Cessation Counseling Been Provided? No Information not available 01/04/2021 Sex: Female Functional Status Question Answer Note LastModified by Organizat ion Details LastModified Time Do you use any illicit or recreational drugs? No Information not available 01/04/2021 Do you or have you ever used any other forms of tobacco or nicotine? No Information not available 01/04/2021 What is your level of alcohol consumption? None Information not available 01/04/2021 Are you currently employed? Yes Information not available 06/18/2024 Are you able to care for yourself? Yes Information n ot available 06/18/2024 What is your exercise level? Occasional Information not available 06/18/2024 Mental Status Question Answer Note LastModified by Organization D etails LastModified Time Do you feel stressed (tense, restless, nervous, or anxious, or unable to sleep at night)? [id number] Information not available 06/18/2024 Family History Relationship Description Onset Age of [...] Eating Disorder N Anemia Y Heart Attack (HI) N Anxiety Disorder Y Diabetes N Muscle, [...] 1 completed GARRISON Montanez Attn: Accounting[address] [place], [place], [address] [place] [address], [place] [facility] 05/20/2023 14:18:18 COVID-19, mRNA, LNP-S, PF, 30 mcg/0.3 mL dose 1 completed GARRISON Montanez Attn: Accounting[address] [place], [place], [address] [place] [address], [place] [facility] 05/20/2023 14:18:18 TST-PPD intradermal 1 completed Nieves Agee MD Attn: Accounting[address] [place], [place], [address] [place] [address], [place] [facility] 08/23/2023 08:51:37 COVID-19, mRNA, LNP-S, PF, 30 mcg/0.3 mL dose 1 completed GARRISON Montanez Attn: Accounting[address] [place], [place], [address] [place] [address], [place] [facility] 05/20/2023 14:18:18 Influenza, split virus, quadrivalent, preservative 6 completed Not Available [facility] 09/12/2019 02:32:32 Tdap 6 completed Not Available [facility] 09/12/2019 02:30:18 influenza, unspecified formulation 2 completed Nieves Agee MD Attn: Accounting,[address] 1 [facility], [place], [address], [place] [facility] 08/23/2023 08:51:37 COVID-19, mRNA, LNP-S, bivalent, PF, 30 mcg/0.3 mL dose 2 completed GARRISON Montanez Attn: Accounting,204 1 [facility], [place], [address], [place] [facility] 05/20/2023 14:18:18 Influenza, split virus, quadrivalent, PF 2 completed GARRISON Montanez Attn: Accounting,204 1 [facility], [place], [address], [place] [facility] 05/20/2023 14:18:18 Influenza, MDCK, trivalent, PF 5 completed Nieves Agee MD Attn: Accounting,204 1 [facility], [place], [address], [place] [facility] 10/16/2024 14:08:14 Pneumococcal conjugate PCV 13 7 completed Not Available [facility] 09/12/2019 02:33:54 Influenza, split virus, quadrivalent, preservative 7 completed [facility] Available [facility] 09/12/2019 02:42:30 pneumococcal polysaccharide PPV23 8 completed Not Available [facility] 09/12/2019 02:36:25 Influenza, split virus, quadrivalent, preservative 8 completed Not Available [facility] 09/12/2019 02:36:29 Influenza, split virus, quadrivalent, preservative 9 completed Not Available [facility] 09/12/2019 02:38:41 Influenza, split virus, quadrivalent, preservative 0 completed Suzanne Pickens MA null, [place] - [facility] 06/24/2020 15:01:34 Influenza, split virus, quadrivalent, preservative 1 completed Didi Wallis LPN null, [place] [facility] 05/19/2021 15:30:39 Influenza, split virus, trivalent, preservative 3 completed Nieves Agee MD Attn: Accounting,[address] [place], [address], [facility] 12/07/2019 14:51:51 Influenza, split virus, trivalent, preservative 4 completed Nieves Agee MD Attn: Accounting,[address] [place], [address], [facility] 12/07/2019 14:51:51 Influenza, split virus, quadrivalent, preservative 5 completed Nieves Agee MD Attn: Accounting,[address] [place], [address], [facility] 12/07/2019 14:51:51 Influenza, split virus, quadrivalent, preservative 3 completed Nieves Agee MD Attn: Accounting,[address] [place], [address], [facility] 08/23/2023 08:45:11 Past Encounters Encounter ID Performer Location Encounter Start Date Encounter Closed Date Diagnosis/Indication Diagnosis SNOMED-CT Code Diagnosis ICD10 Code Diagnosis Note [id number] Nieves Agee MD [facility] [address] [facility] [address] 06/04/2016 12:27:13 06/04/2016 17:47:09 Essential hypertension 43529445 I10 no change in med and you will watch low salt and exercise and lose weight Administra tion of influenza vaccine 62926247 Z23 Persistent insomnia 1919 26685 G47.09 Cont as needed ambien Administra tion of diphtheria, pertussis, and tetanus vaccine 088152514 Z23 [id number] Nieves Agee MD [facility] [address] [place] [address] 09/18/2016 14:58:18 09/19/2016 14:39:01 Diarrhea 08471397 R19.7 [id number] Nieves Agee MD [facility] [address] [place] [address] 12/03/2016 13:45:24 12/03/2016 15:15:49 Benign essential hypertension 8087148 I10 no med change and encouraged exercise / weight loss [id number] Nieves Agee MD [facility] [address] [facility] [email or web address] [address] [facility] [place] [address] 03/25/2017 11:07:51 03/25/2017 14:09:21 Cobalamin deficiency 162448849 E53.8 Administra tion of pneumococcal vaccine 89364626 Z23 Long-term current use of immunosuppressive drug 861853626 Z79.899 awaiting alk phos isoenzymes Morbid obesity 121539364 E66.01 fatty liver may be ut unlikely trigger -- no elevated SGOT or PT [id number] Nieves Agee MD [facility] [address] [facility] [email or web address] [address] [facility] [place] [address] 06/04/2017 13:47:50 06/04/2017 14:46:06 Persistent insomnia 831264232 G47.09 Cont as needed ambien-- discussed trial of 1/2 tab instead of full tab due to high dose Benign ess ential hypertension 7079506 I10 no med change and encouraged exercise / weight loss Administra tion of influenza vaccine 41386647 Z23 Vitamin D deficiency 347 41516 E55.9 Vitamin B deficiency 479 51439 E53.9 Thoracic back pain 08896 8004 M54.6 due to large breast size Macromastia 966298653 N6 2 [id number] Nieves Agee MD [facility] [address] [facility] [email or web address] [address] [facility] [place] [address] 09/23/2017 10:42:18 09/23/2017 16:49:46 Fracture of cuneiform 649778587 S92.201A cleared for planned surgery on 10/03/17 for injection of chondrobla sts? Morbid obesity 943985248 E66.01 weight has contribute d with the healing of melissa foot injury-- you have had some weight loss with MTX Essential hypertension 76252960 I10 no change in med and you will watch low salt and exercise and lose weight Systemic l upus erythematosus 01981567 M32.9 cont care/ management with rhrumatolo gist [id number] Donya Mann MD [facility] [address] [place] [address] 11/01/2017 11:26:14 11/01/2017 14:40:39 Alkaline phosphatase above reference range 504548548 R74.8 [id number] Nieves Agee MD [facility] [address] [place] [address] 11/21/2017 17:21:18 11/21/2017 18:19:19 Serum alkaline phosphatase above reference range 749675778 R74.[address] Alexander on 11/27/17 about this. THe elevation in ALk Phos has been present since Aug 2016-- varying in level. THe Isoenzymes weakly show liver isoenzyme elevation. Had liver U/S in March of 2017 Plain X-ra y of thoracic spine abnormal 413095255 R93.7 attention T 10-- abnormal bone scan and plain XRAYS are inconclusi ve. Elevated Alk Phosphatas e [id number] Nieves Agee MD [facility] [address] [place] [address] 12/19/2017 13:58:06 12/20/2017 09:47:44 Benign essential hypertension 4329668 I10 no med change and encouraged exercise / weight loss Anxiety disorder 1684038 06 F41.9 no change in Zoloft-- job function and attendance is good Morbid obesity 897373056 E66.01 weight discussed Cobalamin deficiency 190 146230 E53.8 refill for monthly injections Persistent insomnia 1919 20892 G47.09 Cont as needed ambien-- discussed trial of 1/2 tab instead of full tab due to high dose [id number] Nieves Agee MD [facility] [address] [place] [address] 02/13/2018 17:46:21 02/14/2018 09:45:07 Chronic thoracic back pain 4065464803 25932 M54.6 to have breast reduction mammoplast y discussed adn cleared Pre-surger y evaluation 326152029 Z01.818 to get the pre-op testing in 10 days [id number] Nieves Agee MD [facility] [address] [place] [address] 06/19/2018 14:24:05 06/20/2018 09:39:06 Irritable bowel syndrome 12852066 K58.9 Benign ess ential hypertension 2938651 I10 no med change and encouraged exercise / weight loss Patient immunocompromised 423758500 D84.9 due to the decrease in your immune system-- will update the pneumonia vaccine and get the yearly flu shot Administra tion of pneumococcal vaccine 23321200 Z23 Administra tion of influenza vaccine 58413565 Z23 Insomnia 522149531 G47.0 0 now trying CBD oils and doing well with it's use [id number] Nieves Agee MD [facility] [address] [place] [address] 09/08/2018 10:50:43 09/09/2018 08:40:22 Acute urinary tract infection 994527352 N39.0 [id number] Nieves Agee MD [facility] [address] [place] [address] 09/22/2018 15:42:02 09/23/2018 08:55:18 Acute maxillary sinusitis 66784853 J01.00 the clindamyci n should be effective for respirator y and the abscess related pathogens Abscess of skin and/or subcutaneous tissue 83484869 L02.91 History of immunosuppressive therapy 026647154 Z92.25 [id number] Nieves Agee MD [facility] [address] [place] [address] 12/11/2018 14:18:30 12/12/2018 08:42:23 Benign essential hypertension 9984743 I10 no med change and encouraged exercise / weight loss Generalize d anxiety disorder 82143238 F41.1 stress reduction Pain in right knee 85212 98718 75441 M25.561 since injury for 3 months ago- likely slow to heal due to the RA Persistent insomnia 1919 55950 G47.09 Cont as needed ambien-- discussed trial of 1/2 tab instead of full tab due to high dose Vitamin D deficiency 347 91678 E55.9 Vitamin B deficiency 479 10020 E53.9 [id number] Nieves Agee MD [facility] [address] [place] [address] 04/08/2019 14:02:45 04/08/2019 15:39:08 Herpes zoster 8289976 B02.9 the forehead lesion is NOT likely related to the shingles. THe other lesions are more likely the results of shingles outbreak [id number] Nieves Agee MD [facility] [address] [place] [address] 06/08/2019 13:54:06 06/08/2019 15:04:05 Benign essential hypertension 6848518 I10 no med change and encouraged exercise / weight loss Generalize d anxiety disorder 37153850 F41.1 stress reduction Administra tion of influenza vaccine 11584867 Z23 Persistent insomnia 1919 22721 G47.09 Cont as needed ambien-- discussed trial of 1/2 tab instead of full tab due to high dose [id number] Nieves Agee MD [facility] [address] [place] [address] 10/07/2019 12:01:17 10/07/2019 15:56:10 Knee pain 90024318 M25.569 Palpable mass 637740782 R22.9 [id number] Nieves Agee MD [facility] [address] [place] [address] 12/07/2019 13:15:33 12/07/2019 16:15:47 Persistent insomnia 992605002 G47.09 Cont as needed ambien--di scussed counseling and stress reduction. Get out / fresh air Generalize d anxiety disorder 49400038 F41.1 stress reduction History of immunosuppressive therapy 142389326 Z92.25 [id number] Nieves Agee MD [facility] [address] [place] [address] 02/15/2020 11:25:55 02/15/2020 19:53:37 Pain of right shoulder joint 6600916527 1721074 M25.511 possibly impingemen t but likely strain for poor posture and poor ergonomics with work tasks Muscle spa sm of cervical muscle of neck 3333240658 04 M62.838 ice -- stretches- - ergonomica lly correct work space needed [id number] Nieves Agee MD [facility] [address] [facility] [[email or web address] [address] [place] [address] 02/22/2020 13:12:46 02/22/2020 15:28:46 Muscle spasm of cervical muscle of neck 2774200371 04 M62.838 ice -- stretches- - ergonomica lly correct work space needed [id number] Nieves Agee MD [facility] [address] [facility] [[email or web address] [address] [place] [address] 06/14/2020 13:20:52 06/15/2020 12:19:04 Persistent insomnia 937756823 G47.09 Cont as needed ambien--di scussed counseling and stress reduction. 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 History of cholecystectomy 011890270 Z90.49 [id number] Nieves Agee MD [place] [address] [facility] [[email or web address] [address] [place] [address] 06/24/2020 14:45:04 06/27/2020 18:48:38 Administration of influenza vaccine 68357710 Z23 [id number] Nieves Agee MD [facility] [address] [facility] [email or web address] [address] [place] [address] 01/04/2021 09:08:13 01/05/2021 10:50:54 Persistent insomnia 912906131 G47.09 discussed and refills sent- follow up 6 mo-- sooner as needed Benign ess ential hypertension 6009188 I10 no med change and encouraged to continue with the exercise / weight loss Inflammato ry polyarthropathy 399578529 M06.4 cont to follow with the rheumatolo gist and fax/ send lab reports from last labs done for record [id number] Nieves Agee MD [facility] [address] [place] [address] 03/30/2021 10:13:38 03/31/2021 09:34:21 Generalized anxiety disorder 60216161 F41.1 do not take hydroxyzin e or zolpidem if taking alprazolam . verbalized understand ing.counse ling offered but declined at this time.RTC in [...] playing tennis or team sports. Decreased hearing 428761 001 H91.90 [id number] Nieves Agee MD [facility] [address] [place] [address] 04/27/2021 09:06:01 04/27/2021 15:04:39 Generalized anxiety disorder 42802671 F41.1 do not take hydroxyzin e or zolpidem if taking alprazolam . verbalized understand abdiel mohan offered states she looking into someone to [...] cycling, or playing tennis or team sports. [id number] Nieves Agee MD [facility] [address] [place] [address] 05/19/2021 15:01:33 05/19/2021 16:01:40 Tuberculosis screening 097199462 Z11.1 Administra tion of influenza vaccine 91857251 Z23 [id number] Nieves Agee MD [facility] [address] [place] [address] 08/28/2021 11:04:47 08/28/2021 17:45:58 Persistent insomnia 176611449 G47.09 routine renewal-- take as directed and cont with counseling as discussed Benign ess ential hypertension 7920008 I10 no med change and encouraged to continue with the exercise / weight loss Generalize d anxiety disorder 73879613 F41.1 cont with counseling for the stress and issues with keeping 4 y/ocont with the sertraline and the bupropion for now-- higher dose was not helpful-- no dose change today Vitamin B deficiency 479 15607 E53.9 monthly renewal-- got injection yesterday so level not checked today-- CBC in Nov was OK Inflammato ry polyarthropathy 426209150 M06.4 [facility] from June 2021 with tramadol from [facility] HIV screen ing declined 9510768291 13651 Z53.20 offered and declined Immunization advised 310 598921 Z71.9 advised shingles vaccine series-- immunocomp romised-- has had shingles in the past Vitamin D deficiency 347 85233 E55.9 check vit D -- was low in the past Morbid obesity 502843647 E66.01 weight discussed- - has had bariatric surgery-- maintainin g-- discussed healthy eating and exercise Reactive hypoglycemia 31 7006 E16.1 discussed diet and nutrition and risk for eventual DM over time-- [facility] [id number] Nieves Agee MD [facility] [address] [place] [address] 10/30/2021 11:02:16 10/30/2021 16:18:26 Sore throat 211330739 J02.9 rest and fluids. cont pain reliever and call if not better with treatment as directed Cough 57762278 R05.1 use GREGG over the counter every morning and 2 benedryl at night until feeling better [id number] Nieves Agee MD [facility] [address] [facility] [[email or web address] [address] [place] [address] 02/27/2022 09:59:13 02/27/2022 11:21:50 Benign essential hypertension 2789991 I10 no med change and encouraged to continue with the exercise / weight losssend message wtih BP readings from home and [facility] ( [facility] for [facility]) Generalize d anxiety disorder 18809305 F41.1 discussed her counseling for the stress and issues with keeping 4 y/oI advised to cont with the sertraline and lower the bupropion dose to every other day for one month-- then 2 times a week until the tabs she has at home are finished-- will slowly taper off BUpropion Persistent insomnia 1919 46507 G47.09 routine renewal-- take as directed and cont with counseling as discussed- - will not taper off at this time Vitamin D deficiency 347 88006 E55.9 continue with weekly vit D -- stop daily-- last VIt D level was 80 [id number] Nieves Agee MD [facility] [address] [place] [address] 09/24/2022 15:09:17 09/25/2022 12:00:14 Morbid obesity 908020823 E66.01 weight discussed- - has had bariatric surgery-- maintainin g-- discussed healthy eating and exercise Benign ess ential hypertension 4954216 I10 no med change and encouraged to continue with the exercisese nd message wtih BP readings from home and will check BP readings from [facility] ( who sees her in person for infusions) Generalize d anxiety disorder 67431126 F41.1 discussed her counseling for the stress and issues with keeping 4 y/oI advised to cont with the sertraline daily with the as needed other agents taken sparingly as directed History of bariatric surgical procedure 179088412 Z98.84 will check labs given BARIATRIC history to assure levels ok-- reports she is taking B 12 injections monthly History of immunosuppressive therapy 728860277 Z92.25 per Rheumatolo gist Persistent insomnia 9 69519 G47.09 routine renewal-- take as directed and cont with counseling as discussed- - will not taper off at this time-- effective dose Long-term drug therapy 223896686 Z79.899 lab since on retirement meds-- to assure liver/ kidneys/ electrolyt es and blood counts are OK [id number] Nieves Agee MD [facility] [address] [place] [address] 03/25/2023 13:51:07 03/26/2023 09:28:17 Persistent insomnia 120205266 G47.09 routine renewal-- take as directed and cont with counseling as discussed- - will not taper off at this time-- effective dose Pain of le ft hip joint 2413096289 66294 M25.552 will XRAY the hip and knee-- if neg XRAY -- consider PT-- if abnormal-- to see ortho Pain of le ft knee joint 7761825413 28283 M25.562 will XRAY the hip and knee-- if neg XRAY -- consider PT-- if abnormal-- to see ortho Hypoglycemia 881521899 E 16.2 pt ed diet and avoiding skipping meals and avoid simple sugar-- eat some protein with each meal and snack every 4 hours Change in voice 73789259 5 R49.9 not sure if this is medically an issue-- she admits and is noted to have a normal voice at this time Body mass index 30+ - obesity 506714427 Z68.41 options discussed and she wishes to trial MOUNJARO-- if MOUNJARO is not covered-- patient will let me know alternativ es to this treatment HIV screen ing declined 2015571580 17154 Z53.20 offered and declined screen for HIV Screening mammography of bilateral breasts 0009100195 71574 Z12.31 mammogram ordered / advised History of immunosuppressive therapy 093058411 Z92.25 as per Rheumatolo gist [id number] Nieves Agee MD [facility] [address] [place] [address] 05/20/2023 14:00:09 05/21/2023 17:55:53 Diarrhea 09692193 R19.7 Given 4 weeks of symptoms will check labs and stool culturesCo ntinue BRAT diet Abnormal urine odor 8769 003 R82.90 Urine normal [id number] Nieves Agee MD [facility] [address] [place] [address] 08/22/2023 11:59:04 08/23/2023 10:33:13 Administration of influenza vaccine 83620074 Z23 flu shot advised and given today Obesity 564820873 E66.9 we discussed PHENTERMIN E/ CONTRAVE and [...] participat ing in dietary changes/ lifestyle changes) [id number] Nieves Agee MD [facility] [address] [place] [address] 10/31/2023 11:45:16 10/31/2023 15:39:41 History of bariatric surgical procedure 119530871 Z98.84 updated surgical history - given BARIATRIC history - reports she is taking B 12 injections monthly Body mass index 30+ - obesity 443080203 Z68.41 options discussed and she has been taking ZEPBOUND with success in controllin g appetite and weight loss. Cost of med is an issue and using savings card to assist in covering medication cost. Renewal for 30 days with 2 refills sent to pharmacyI will investigat e discount options for patient [id number] Nieves Agee MD [facility] [address] [place] [address] 01/31/2024 09:43:02 01/31/2024 12:43:09 Chronic insomnia 382210590 F51.04 no med change-- reports med is effective and will need refill in February ( next OV will be in 3 months) Body mass index 30+ - obesity 810893840 Z68.41 no med dose change-- she actually asked for dose increase and that request was denied since risk of SEs increase with dose increase. Further plans pending outcome of weight loss goals History of polyp of colon 155216168 Z86.010 due to have colon recheck in 3 years [id number] Nieves Agee MD [facility] [address] [facility] [[email or web address] [address] [place] [address] 06/18/2024 14:13:50 06/19/2024 12:52:25 Body mass index 30+ - obesity 611697978 Z68.41 no med dose change-- she actually asked for dose increase and that request was denied since risk of SEs increase with dose increase. Further plans pending outcome of weight loss goals Obesity 413900066 E66.9 I will cont ZEPBOUND until BMI is < 27 and gradually wean the dose to keep weight stable Low back pain 897670824 M54.50 offered and declined PT-- plans to get to the [facility] Pain of bi lateral hip joints 1964098941 8136894 M25.551 M25.552 offered and declined PT- for hip pain (?bursitis )- plans to get to the [facility] Chronic insomnia 5591742 04 F51.04 no med change-- reports med is effective and will need refill since next OV will be in 4 months instead of 2 months and only has refills for 2 months Influenza vaccination declined 343330398 Z28.21 offered and declined flu shot [id number] Nieves Agee MD [facility] [address] [place] [address] 10/16/2024 13:42:32 10/16/2024 16:00:30 Screening mammography 58780913 Z12.31 she has an appt for mammograph y in October -- no order needed Obesity 002898290 E66.9 I will slowing decrease the ZEPBOUND dose--- Further plans pending outcome of weight loss goals--BMI is < 27 and gradually wean the dose to keep weight stable Chronic insomnia 1853674 04 F51.04 no med change-- reports med is effective and will need refill since next OV will be in 3 months instead of 2 months and only has refills for 2 months Excessive skin and subcutaneous tissue 367269577 L98.7 Urgent constance sharyn to urinate 79481862 R39.15 Anterior rhinorrhea 2772 07497 J34.89 will trial with AZELATINE spray and consider the combo steroid/ antihistam ine sprays if this is not effective [id number] Nieves Agee MD [facility] [address] [facility] [address] 12/18/2024 15:26:36 12/21/2024 11:47:33 Dysfunction of bilateral eustachian tubes 1654714967 513698 H69.93 Acute maxi llary sinusitis 35578101 J01.00 immunocomp romised on RA meds. No [...] ID Guarantor Name 10/31/2023 1 [employer] [id number] Eleanor Pierre [id number] Eleanor Pierre 10/31/[address] [facility] ( - PPO) Eleanor Carlos Alberto Pierre [id number] Eleanor Pierre 01/31/2024 1 [place] [id number] Eleanor Pierre [id number] Eleanor Pierre 01/31/[address] [facility] [facility] ( - PPO) Eleanor Carlos Alberto iPerre [id number] Eleanor Pierre 06/18/2024 1 [place]) [id number] Eleanor Pierre [id number] Eleanor Pierre 06/18/2024 2 [facility] - [employer] - SELECT ( - PPO) Eleanor Pierre [id number] Eleanor Pierre 10/16/2024 1 [place]) [id number] Eleanor Pierre [id number] Eleanor Pierre 10/16/2024 2 [facility] - [facility] () Eleanor Pierre [id number] lEeanor Pierre 12/18/2024 1 [place]) [id number] Eleanor Pierre [id number] Eleanor Pierre 12/18/2024 2 WE[facility] - TRIWEST () Eleanor Pierre [id number] Eleanor Pierre Notes Date Note Type Note [...] of diet as primary therapyNotes:Zepbound prescribed in Dec-- here for follow up-- she was on lowest dose but reports that she has not had injection since 10/16/23 due to cost issues*per patient she also needs to talk about the sinus stifle she has that are lingering, had covid a month ago 10/02/2023. f/u Nieves Agee MD Attn: Accounting,[address] [facility], [place], [address], [facility] 10/31/2023 13:45:15 4 text/html InsomniaReported bypatient.Quality:symptoms worse [...] as primary therapy Nieves Agee MD Attn: Accounting,[address] [place] [address], [phone], [facility] 01/31/2024 10:18:30 4 text/html ObesityReported bypatient.Context:no inhaled [...] just has infusion Nieves Agee MD Attn: [facility],[address] [place] [address], [address], [facility] 06/18/2024 16:54:42 5 text/html ObesityReported bypatient.Context:no inhaled [...] pain is occasional -- 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 GARRISON Khoury Attn: Accounting,[address] [facility], [place], [address], [facility] 12/18/2024 15:57:13 OBGyn Episode No OBEpisode recorded.
--- OUTSIDE RECORDS SUMMARY | 2025-01-13 11:09 | XMS_ITS | Data Portability ---
Author Organization [place] [facility],, Phyllis tay Address [address] [place] [address] Care Team Providers Care Education Consultant Name Role Phone TK CA Referring Provider Assessment No assessment recorded. Plan of Treatment Reminders Order Date Submit Date Provider Last Modified By Organization Details Last Modified Time Details Appointments None recorded. Lab allergy test, skin 023 023 [email or web address] [facility], [address], [place], [address], 3 16:35:34 Referral None recorded. Procedures None [...] Address Organization Details Recorded Time Rheumatoid arthritis 98698970 Active 023 Louisa Dick MD [address], [place], [address] , [place] [facility], 3 15:22:08 Cobalamin deficiency 179793327 Active 023 Louisa Dick MD [address], [place], [address] , [place] [facility], 3 15:22:14 Problem Notes None recorded. Medical Equipment None Reported. Allergies Allergen ID Allergen Name Allergen Category Reaction Reaction Severity Criticality Documentation Date Start Date Code Code System Note Provider Name and Address Organization Details Recorded Time 74911 lisinopri l medicatio n cough Not available Not available 09/26/2022 45171 RxNorm JOHN majano - [facility] [...] Updated DateTime 3 160.02 cm 42.5 kg/m2 753774. 17 g 94 /min 95 % 95 [...] SNOMED-CT Code Diagnosis ICD10 Code Diagnosis Note [id number] Louisa Dick MD OFFICE [address] [place] [address] 09/26/2022 14:48:20 09/26/2022 17:42:09 Adverse reaction to biological substance 937861311 T50.905A Negative skin test utilizing Humira and [...] Name 09/26/2022 1 [place] [id number] Eleanor Gabby [id number] Eleanor Pierre 09/26/2022 2 [facility]PS - FOR LIFE (MEDICARE SUPPLEMENT) Rush Pierre [id number] Eleanor Gabby Notes Date Note Type Note [...] Dick MD [address], [place], [address], [facility] [place] [facility], 09/26/2022 16:36:47 OBGyn Episode No OBEpisode recorded.
--- OUTSIDE RECORDS SUMMARY | 2025-01-13 11:09 | XMS_ITS | Encounter Summary ---
Author Organization [facility] Facility Care Team Providers Care Track Oiler Name Role Phone Nieves Sears MD Primary Care Provider + Nieves Sears MD Primary Care Provider + Kinga Ca MD Unavailable Shannan Cristobal COMPONENT ASSEMBLER SUPERVISOR Unavailable [phone] Nieves Sears MD Primary Care Provider + Nieves Sears MD Primary Care Provider + Encounter Details Date Type Department Care Team (Latest Contact Info) Description 09/04/2016 Orders Only [facility] CLINCONV ProviderBrett MD [address] [place] [address] Social History Tobacco Use Types Packs/Day Years Used Date Smoking Tobacco: Never Alcohol Use Standard Drinks/Week Comments Yes 0 (1 standard drink = 0.6 oz pur e alcohol) Comments Unknown Sex and Gender Information Value Date Recorded Sex Assigned at Not on file Legal Sex Female 3:46 AM DEPARTMENTAL SHIPPING CLERK Gender Identity Not on file Sexual Orientation Not on file documented as of this encounter Plan of Treatment Not on file documented as of this encounter Procedures Procedure Name Priority Date/Time Associated Diagnosis Comments SCAN - PATHOLOGY 09/14/2016 12:0 0 AM DEPARTMENTAL SHIPPING CLERK documented in this encounter Results * SCAN - PATHOLOGY (09/14/2016 12:00 AM DEPARTMENTAL SHIPPING CLERK) Narrative 09/14/2016 12:00 AM DEPARTMENTAL SHIPPING CLERK Ordered by an unspecified provider. us Historical Provider Final Res ult documented in this encounter Visit Diagnoses Not on filedocumented in this encounter Care Teams Track Oiler Relationship Specialty Start Date End Date Nieves Sears MD [address] [address] PCP - General 11/23/16 10/06/19 Nieves Sears MD [address] [address] PCP - General 07/08/15 11/22/16 Nieves Sears MD [address] [address] PCP - General 11/06/19 Nieves Sears MD [address] [id number] PCP - General 10/07/19 11/05/[place] [address] [address] Rheumatology 05/15/17 [place] [address] [address] Nurse Practitioner 02/13/18 documented as of this encounter
--- OUTSIDE RECORDS SUMMARY | 2025-01-13 11:09 | XMS_ITS | Continuity of Care Document ---
Author Organization [facility] Address [address] [place] [address] Phone Care Team Providers Care Patient Service Specialist Name Role Phone Lacey Torrez Unavailable Unavailable Allergies, Adverse Reactions, Alerts Substance Reaction Status Criticality lisinopril ACEI Cough Active No Information Medications Medication Instructions Dosage Effective Dates (start - stop) Status Comments ProAir RespiClick 90 mcg/actuation breath activated inhale 2 puff by inhalation route every 4 - 6 hours as needed 180 MCG - Active spironolactone 100 mg tablet take 1 tablet by oral route every day 100 MG - Active Vitamin D2 50,000 unit capsule take 1 capsule by oral route every week - Active methotrexate sodium 2.5 mg tablet - Active folic acid 1 mg tablet - Active Vitamin D3 5,000 unit tablet - Active tramadol 50 mg tablet take 1 tablet by oral route every 6 hours as needed 50 MG - Active Ambien 10 mg tablet take 1 tablet by oral route every day at bedtime 10 MG - Active MEGAKRILL (unknown strength) Not Available - Active colestipol 1 gram tablet - Active amlodipine 5 mg tablet take 1 tablet by oral route every day 5 MG - Active Zoloft 100 mg tablet take 1 tablet by oral route every day 100 MG - Active Plus 29 mg iron-1 mg tablet take 1 tablet by oral route every day with a meal 1.00 tablet - Active Vitamin B-12 1,000 mcg/mL injection solution inject 0.1 milliliter by intramuscular route every month - Active ARNUITY ELLIPTA 100 MCG INH INHALE 1 PUFF BY INHALATION ROUTE EVERY DAY AT THE SAME TIME EACH DAY 100 MCG - No Longer Active Viorele (28) 0.15 mg-0.02 mg (21)/0.01 mg (5) tablet take 1 tablet by oral route every day 1.00 tablet - No Longer Active Advance Directives Directive Yes / No Effective Date File Name No Information Encounters Encounter Description Practice Location Reason(s) For Visit Diagnoses Date Provider Providers Copied on Encounter [facility], [address], [place], [place], [id number] , tel: [phone] [facility] Mild persistent asthma without complicationNon-all ergic rhinitis Apr-2 7 Ifeanyi Rahman . [address] [place] [address], [id number] , . tel: [phone] Referring Provider: Jaswant Pickens, [address] [place] [address], [address] . tel:[phone] [facility], [address] [place] [address], [id number] , tel: [phone] [facility] No Information Celio Michaud. [address] [place] [address], [id number] , . tel: [phone] [facility], [address] [place] [address], [id number] , tel: [phone] [facility] Mild persistent asthma without complicationNon-all ergic rhinitis Oct- 7 Ifeanyi Rahman . [address] [place] [address], [id number] , . tel: [phone] Referring Provider: Jaswant Pickens, [address] [place] [address], [address] . tel:[phone] [facility], [address] [place] [address], [id number] , tel: [phone] [facility] Mild persistent asthma without complicationNon-all ergic rhinitis Apr-0 6-201 6 Shine Lacey . [address] [place] [address], [id number] , . tel: [phone] Referring Provider: Jaswant Pickens, [address] [place] [address], [address] . tel:[phone] [facility], [address] [place] [address], [id number] , tel: [phone] [facility] Mild persistent asthma without complicationGastro- esophageal reflux disease without esophagitisNon-jessica rgic rhinitisCough Darin-0 7-201 6 Ifeanyi Augustinine . [address] [place] [address], [id number] , . tel: [phone] Referring Provider: Jaswant Pickens, [address] [place] [address], [address] . tel:[phone] [facility], [address] [place] [address], [id number] , tel: [phone] [facility] Mild persistent asthma without complicationNon-all ergic rhinitisGastro-esop hageal reflux disease without esophagitisCough May-0 3-201 6 Ifeanyi Augustinine . [address] [place] [address], [id number] , . tel: [phone] Referring Provider: Jaswant Pickens, [address] [place] [address], [address] . tel:[phone] [facility], [address] [place] [address], [id number] , tel: [phone] [facility] Mild persistent asthma without complicationNon-all ergic rhinitisCoughGastro -esophageal reflux disease without esophagitis Apr-0 4-201 6 Celio Michaud. [address] [place] [address], [id number] , . tel: [phone] Referring Provider: Nieves Sears, [address] [place] [address], [place], [address]. tel:[phone] [facility], [address] [place] [address], [place], [id number] , tel: [phone] [facility] Mild persistent asthma without complicationNon-all ergic rhinitisCough [address] [place] [address], [id number] , . tel: [phone] Referring Provider: Jaswant Pickens, [address] [place] [address], [address] . tel:[phone] [facility], [address], [place], [place], [id number] , tel: [phone] [facility] Non-allergic rhinitisMild persistent asthma without complicationCoughHi story of nickel allergy [address] Cel[address] [place] [address], [id number] , . tel: [phone] Referring Provider: Nieves Sears, [address], [address]. tel:[phone] Family History Family Member Type Diagnosis Age At Onset Problem (finding) No family history of Al lergies Payers Payer name Insurance type Covered republican ID Authorvincea navinjoaquín(s) [facility] [id number] [facility] [id number] Social History Type Description Quantity Date Captured Comments Alcohol Use Details Unknown Caffeine Use Details Unknown Tobacco Use Status No Information Smoking Status Never smoker Sex Female Vital Signs Date / Time: Height Weight BMI Pulse Rate Blood Pressure Temperature Respiratory Rate Body Surface Area Head Circumference Head Circ. Percentile Wt./Rashaun. Percentile BMI percentile Pulse Ox Inhaled Ox 2:36 PM 63.00 in 113.852 kg (251.00 lbs) 44.4 6 kg/m eter (2) 80 /min 138/81 mm[Hg] Chief Complaint And Reason For Visit No Information Reason For Referral Reason For Referral No Information History Of Present Illness Encounter Date Complaint History Of Prese nt Illness No Information Functional Status Date Functional Assessmen t No Information Medications Administered Medication Instructions Dosage Effective Dates (start - stop) Status Comments No Drug Therapy Prescribed Instructions Date Instruction Additional Infor mation No Information Assessments Type Assessment Date No Information Patient Care Teams Name Effective Dates (start - stop) Status Members No Information
--- OUTSIDE RECORDS SUMMARY | 2025-01-13 11:09 | XMS_ITS | Clinical Summary ---
Author Organization [facility] Address [address] [facility] [place] [address] Care Team Providers Care Garageman Name Role Phone Nieves Sears MD Primary Care Provider [phone] Source Comments [facility],non-owned Affiliates and Associated Physician Practices is amultiple site organization consisting of ambulatory clinics and hospital sitesin [place], [place], [place] and [place]. This disclosure is being madepursuant to the Care Everywhere program and may not contain all information available regarding this patient. 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 [place] [address] PCP - General Family Medicine 07/08/15
--- OUTSIDE RECORDS SUMMARY | 2025-01-13 11:09 | XMS_ITS | Encounter Summary ---
Author Organization [facility] Address [address] [facility] [place] [address] Care Team Providers Care Engine Inspector Name Role Phone Nieves Sears MD Primary Care Provider Encounter Details Date Type Department Care Team (Late st Contact Info) Description 03/23/2022 Lab Requisition [facility] D[facility] Lab [address] [facility] [place] [id number] Joseluis Wasserman MD [address] [place] [address] Social History Tobacco Use Types Packs/Day Years Used Date Smoking Tobacco: Never Assessed Comments Unknown Sex and Gender Information Value Date Recorded Sex Assigned at Not on file Legal Sex Female 3:28 PM AEROPLANE PILOT Gender Identity Not on file Sexual Orientation Not on file documented as of this encounter Plan of Treatment Not on file documented as of this encounter Procedures Procedure Name Priority Date/Time Associated Diagnosis Comments DERMATOPATHOLOGY Routine 03/22/2022 12:0 0 AM CDT documented in this encounter Results * DERMATOPATHOLOGY (03/22/2022 12:00 AM CDT) Case Report Dermatopathology Report Case: [id number] Authorizing Provider: Joseluis Wasserman MD Collected: 03/22/2022 12:00 AM Ordering Location: [facility] Received: 03/23/2022 04:31 PM Pathologist: Carlos Alberto Scott MD Specimen: Skin, left lateral neck 5:36 PM CDT DERMATOPATHOLOGY LABORATORY Final Diagnosis Specimen A. SKIN, left lateral neck: NEUROFIBROMA (D36.10) 2 5:36 PM CDT DERMATOPATHOLOGY LABORATORY at 1736 CDT Clinical History Nevus. Path# [id number] 5:36 PM CDT DERMATOPATHOLOGY LABORATORY Gross Description Specimen A: Received is one formalin filled container labeled with the patient's name and designated left lateral neck. The specimen consists of a shave biopsy measuring [id number] and it is bisected. Jar 0. 5:36 [...] characteristic determined by the Dermatopathology Laboratory at [facility], directed by Dr. Marianna Scott. These tests need not be, and therefore are not, approved by the [place] Food and Drug Administration. The tests are used for clinical purposes. Billing Codes Specimen Charges Stain Charges 75547 1 2 5:36 PM CDT DERMATOPATHOLOGY LABORATORY Embedded Images 5:36 PM CDT DERMATOPATHOLOGY LABORATORY Pathology/Cytolog y TISSUE SPECIMEN FROM SKIN / Unknown 03/22/2022 03/23/2022 4:31 PM CDT us Joseluis Wasserman MD LAB - PATHOLOGY/CYTOLOGY ORDER GLORIA Final Result DERMATOPATHOLOGY LABORATORY [facility] - Department of Dermatology [address], [address] [phone] documented in this encounter Visit Diagnoses Not on filedocumented in this encounter Care Teams Engine Inspector Relationship Specialty Start Date End Date Nieves Sears MD [address] [facility] [address] [place] [address] PCP - General Family Medicine 07/08/15 documented as of this encounter
== END 2025-01-13 10:34 | disposition home or self-care (01) ==
LOC: ANHSURGERY 10:37
PROVIDERS: PCP Family Medicine; Visit Provider Surgery Plastic and Reconstructive Surgery
DX: Z01.810 Encounter for preprocedural cardiovascular examination (principal); R94.31 Abnormal electrocardiogram [ECG] [EKG]; I10 Essential (primary) hypertension
CPT/HCPCS: 93005

== ENCOUNTER 2025-01-22 01:11 | Day surgery (SDC) | payer OTHER, SELFPAY ==
[2025-01-12 15:26] VITALS: BMI 24.2
--- NOTE | 2025-01-12 15:38 | PC.NURSE ---
Report to the Outpatient Waiting Room, entrance under the green pavilion located off [facility], at time __0830am on date __01/22/25 . Planned Procedure Time: _10:30am .? Time changes happen often and if your time is changed the preop area will call you the afternoon before. - You and your visitor will be asked to self-screen and do not enter if you have any COVID symptoms. Please call surgeon if you need to reschedule. - A mask is optional within the hospital at this time. Patients may have no- No food or drink from midnight until time of surgery and no smoking, or chewing tobacco (or any form of nicotine). No chewing gum, candy or mints. Take only the following medications with a SIP of water on the morning of surgery: __Sertraline and Tramadol if needed DO NOT STOP ANY OF YOUR OTHER PRESCRIPTION MEDICATIONS PRIOR TO SURGERY EXCEPT THE FOLLOWING Hold all vitamins and supplements for 3 days per anesthesiologist. Date to last 01/18/25 Medications to discontinue per physician NONE Date to take last dose____NONE Please no make-up, nail persian, hairspray, perfume, deodorant, or body powder the day of surgery.? No jewelry (including any body piercings) or valuables the day of surgery, leave them at home.? Please take a shower or bath the night before, or the morning of, surgery with an antibacterial soap.? Wear comfortable, loose fitting clothing.? - Jewelry must be removed prior to entering the operating room.? Rings and piercings that are not removed may be cut off. - The hospital will not accept responsibility for valuables.? - Please leave all valuables, including medications, at home the day of surgery. If you are going home after surgery, a licensed bung driver must drive you home.? - NO public transportation without another adult if you receive anesthesia. - We recommend that an adult stay with you for 24 hours following discharge. - We also recommend that you do not drive, make important decision, drink alcoholic beverages, or take any drugs that were not prescribed by your health care provider for at least 24 hours after your discharge time. Follow any additional instructions given to you from your surgeon. Telephone instructions given to ___Patient and asked if any additional questions and then verbalized understanding. Patient advised to call surgeon office or pre surgery nurse liaison [phone] if any additional questions.
[2025-01-22] VITALS (9 sets, daily range): BP systolic 122–136; BP diastolic 49–66; PULSE 66–112; RESP 10–18; TEMP 36.4–36.6; O2SAT 94–100; BMI 24.2
--- OUTSIDE RECORDS SUMMARY | 2025-01-22 01:14 | XMS_ITS | Data Portability ---
Author Organization [place] [facility] Phyllis tay Address [address] [place] [address] Care Team Providers Care Fashion Artist Name Role Phone TK CA Referring Provider Assessment No assessment recorded. Plan of Treatment Reminders Order Date Submit Date Provider Last Modified By Organization Details Last Modified Time Details Appointments None recorded. Lab allergy test, skin 023 023 [email or web address] [facility], [address], [place], [address], 3 16:35:34 Referral None recorded. Procedures None [...] Address Organization Details Recorded Time Rheumatoid arthritis 93707796 Active 023 Louisa Dick MD [address], [place], [address] , [place] [facility], 3 15:22:08 Cobalamin deficiency 901908157 Active 023 Louisa iDck MD [address], [place], [address] , [place] [facility], 3 15:22:14 Problem Notes None recorded. Medical Equipment None Reported. Allergies Allergen ID Allergen Name Allergen Category Reaction Reaction Severity Criticality Documentation Date Start Date Code Code System Note Provider Name and Address Organization Details Recorded Time 96631 lisinopri l medicatio n cough Not available Not available 09/26/2022 12780 RxNorm JOHN majano - [facility] [...] Updated DateTime 3 160.02 cm 42.5 kg/m2 968742. 17 g 94 /min 95 % 95 [...] SNOMED-CT Code Diagnosis ICD10 Code Diagnosis Note [id number] Louisa Dick MD OFFICE [address] [place] [address] 09/26/2022 14:48:20 09/26/2022 17:42:09 Adverse reaction to biological substance 604191428 T50.905A Negative skin test utilizing Humira and [...] Villa Member ID Guarantor Name 09/26/2022 1 [place] [id number] Eleanor Gabby [id number] Eleanor Pierre 09/26/2022 2 FOR LIFE ( - MEDICARE SUPPLEMENT) Rush Pierre [id number] Eleanor Gabby Notes Date Note Type Note [...] Dick MD [address], [place], [address], [facility] [place] [place] - [facility], 09/26/2022 16:36:47 OBGyn Episode No OBEpisode recorded.
--- OUTSIDE RECORDS SUMMARY | 2025-01-22 01:14 | XMS_ITS | Encounter Summary ---
Author Organization [facility] Facility Care Team Providers Care Metal Annealer Name Role Phone Nieves Sears MD Primary Care Provider + Nieves Sears MD Primary Care Provider + Kinga Ca MD Unavailable Shannan Cristobal HOT PLATE PRESS OPERATOR Unavailable [phone] Nieves Sears MD Primary Care Provider + Nieves Sears MD Primary Care Provider + Encounter Details Date Type Department Care Team (Latest Contact Info) Description 09/04/2016 Orders Only [facility] CLINCONV ProviderBrett MD [address] [place] [address] Social History Tobacco Use Types Packs/Day Years Used Date Smoking Tobacco: Never Alcohol Use Standard Drinks/Week Comments Yes 0 (1 standard drink = 0.6 oz pur e alcohol) Comments Unknown Sex and Gender Information Value Date Recorded Sex Assigned at Not on file Legal Sex Female 3:46 AM INSPECTOR SCALES Gender Identity Not on file Sexual Orientation Not on file documented as of this encounter Plan of Treatment Not on file documented as of this encounter Procedures Procedure Name Priority Date/Time Associated Diagnosis Comments SCAN - PATHOLOGY 09/14/2016 12:0 0 AM INSPECTOR SCALES documented in this encounter Results * SCAN - PATHOLOGY (09/14/2016 12:00 AM INSPECTOR SCALES) Narrative 09/14/2016 12:00 AM INSPECTOR SCALES Ordered by an unspecified provider. us Historical Provider Final Res ult documented in this encounter Visit Diagnoses Not on filedocumented in this encounter Care Teams Metal Annealer Relationship Specialty Start Date End Date Nieves Sears MD [address] [address] PCP - General 11/23/16 10/06/19 Nieves Sears MD [address] [address] PCP - General 07/08/15 11/22/16 Nieves Sears MD [address] [address] PCP - General 11/06/19 Nieves Sears MD [address] [id number] PCP - General 10/07/19 11/05/[place] [address] [address] Rheumatology 05/15/17 [place] [address] [address] Nurse Practitioner 02/13/18 documented as of this encounter
--- OUTSIDE RECORDS SUMMARY | 2025-01-22 01:15 | XMS_ITS | Clinical Summary ---
Author Organization [facility] [address] Address [address] [place] [address] Phone Care Team Providers Care Clean Up Person Name Role Phone Kinga Ca MD Unavailable Shannan Cristobal NP Unavailable [phone] Nieves Sears MD Primary Care Provider [phone] Allergies Active Allergy Reactions Criticality Noted Date [...] better w/ conservative measures. Recently saw the tow feeder for the skin lesion on her left [...] in serologies. 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 xrays did [...] - 12/25/2024 11:59 PM CDT Hospital Encounter [facility] Diagnostic Imaging [address] [place] [address] 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 factor (HCC) Discharge Disposition: Discharge to home or self care 11/13/2024 7:29 AM CDT - 11/13/2024 11:59 PM CDT Hospital Encounter [facility] Medical Office [address] [facility] [address] [facility] [address] [place] [address] Screening mammogram, encounter for Discharge Disposition: Discharge [...] on file Legal Sex Female 3:46 AM HAULING CONTRACTOR Gender Identity Not on file Sexual Orientation [...] 8:13 AM CDT Height 160 cm (5' 3) 04/19/2021 8:13 AM CDT Body Mass Index [...] Jeremiah Montague M.D. MF: DARIUSZ Report ID: [id number] Reading Location: [id number] Procedure Note Jeremiah Montague MD - 12/26/2024 [...] Jeremiah Montague M.D. MF: DARIUSZ Report ID: [id number] Reading Location: [place] [address] [address] Mary BASEBALL UMP[employer] IMG XR PROCEDURES Final Result * Screening [...] age 40, based on guidelines of the [place] [employer] (ACR Practice Parameter for the Performance of Screening and Diagnostic Mammography) and [place]. For women [...] C antibody (05/13/2017 3:50 PM CDT) Pathologist [facility] Hep C Ab NON-REACTI VE NON-REACTI VE [facility] [place] SIGNAL TO CUT-OFF 0.06 <1.00 [facility] [place] 05/13/2017 3:50 PM CDT 05/13/2017 3:51 PM CDT Narrative Resulting Agency Comment Performing Organization Information: Site ID: [place] Name: [facility] Address: [address] [place] [address] Director: Jaswant Randall D.O., MPH Latasha JI LAB MICROBIOLOGY - GENERAL ORDERABLES Final Result [facility] [place] * ThinPrep Pap (02/07/2015 12:15 PM CDT) Pathologist [facility] Department Thin Prep Pap Smear SEE BELOW () 02/14 6:30 PM CDT [facility] HISTORICAL RESULTS Comment: Pourer Buggy Ladle ThinPrep Cytology Final Report ThinPrep Pap Specimen Source Cervix/Endocervix Specimen Adequacy Satisfactory for interpretation, endocervical cells (transformation zone) present. Interpretation Negative for intraepithelial lesion or malignancy. 02/14/15 Lab Nurse: TERA Osman(ASCP) 02/14/15 Verified By: TERA Osman(ASCP) electronic signature [facility], Department of Pathology For questions regarding this case, call ext. [phone] CPT Code(s) 34262 Clinical History LMP: [id number] : N : N IUD: N Hormone Therapy: N Postmenopausal: N Previous surgery date and type: N Hysterectomy: N Chemotherapy: N MICHELE Exposure: N Radiation: N Previous Abnormal Pap? Details: N Diagnostic or Screening Pap Test: Screening Performed by [facility], [address] [place] [id number] [email or web address], Hira Cadena MD - Lab. Director 02/07/2015 12:1 5 PM CDT 02/07/2015 4:28 PM CDT Jaswant Vega MD LAB PATHOLOGY ORDERABLE S Final Result [facility] HISTORICAL RESULTS from Last 3 Months or Most Recently Relevant to Health Maintenance Insurance Meetings.io [facility] [place] [id number] [place] [address] CLAIMS [employer] [place] Member Subscriber Plan / Payer (Ef fective 2004-Present) Name:Eleanor Steel Relation to Subscriber:Self Name:Eleanor Steel Payer ID:[id number] (NAIC) Type: OTHER Address: [address] [place] [address] [place] [address] CLAIMS [facility] Care Teams Clean Up Person Relationship Specialty Start Date End Date Nieves Sears MD [address] [address] PCP - General 11/06/19 [place] [address] [address] Rheumatology 05/15/17 [place] [address] [facility] [address] [place] [address] Nurse Practitioner 02/13/18
--- OUTSIDE RECORDS SUMMARY | 2025-01-22 01:15 | XMS_ITS | Clinical Summary ---
Author Organization [facility] Address [address] [place] [place] [address] Care Team Providers Care Grades 9 12 Tutor Name Role Phone Nieves Sears MD Primary Care Provider [phone] Source Comments [facility],non-owned Affiliates and Associated Physician Practices is amultiple site organization consisting of ambulatory clinics and hospital sitesin [place], [place], [place] and [place]. This disclosure is being madepursuant to the Care Everywhere program and may not contain all information available regarding this patient. 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 [place] [address] PCP - General Family Medicine 07/08/15
--- OUTSIDE RECORDS SUMMARY | 2025-01-22 01:15 | XMS_ITS | Referral Summary ---
Author Organization [facility] [address] Address [address] [place] [address] Phone Care Team Providers Care Geological Manager Name Role Phone Kinga Ca MD Unavailable Shannan Cristobal NP Unavailable Nieves Sears MD Primary Care Provider [phone] Encounters Date Type Department Care Team Description 12/25/2024 2:46 PM CDT - 12/25/2024 11:59 PM CDT Hospital Encounter [facility] Diagnostic Imaging [address] [place] [address] 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 factor (HCC) Discharge Disposition: Discharge to home or self care 11/13/2024 7:29 AM CDT - 11/13/2024 11:59 PM CDT Hospital Encounter [facility] Medical Office Bldg 1 [facility] [address] [facility] [address] [place] [address] Screening mammogram, encounter for Discharge Disposition: Discharge [...] better w/ conservative measures. Recently saw the manager long term care for the skin lesion on her left [...] in serologies. Will send in pennsaid to [facility] Follow up in 3 mo, sooner [...] PA-C Assessment & Plan (07/25/2017 1:10 PM SOA ARCHITECT): On plaquenil and mtx Acute pain of [...] 02/11/2017 Assessment & Plan (07/25/2017 1:12 PM SOA ARCHITECT): Worsening pain in R midfoot. xrays did [...] Diagnosed Date Resolved Date Rheumatoid arthritis [facility] without rheumatoid factor 02/11/2017 05/10/2017 Encounter [...] on file Legal Sex Female 3:46 AM SOA ARCHITECT Gender Identity Not on file Sexual Orientation [...] Jeremiah Montague M.D. MF: DARIUSZ Report ID: [id number] Reading Location: [id number] Procedure Note Jeremiah Montague MD - 12/26/2024 [...] Jeremiah Montague M.D. MF: DARIUSZ Report ID: [id number] Reading Location: [id number] Sabine Hernandez [facility] [employer] HAND IMG XR PROCEDURES Final Result * Screening [...] age 40, based on guidelines of the [place] [employer] (ACR Practice Parameter for the Performance of Screening and Diagnostic Mammography) and [place] [employer]. For women [...] antibody (05/13/2017 3:50 PM CDT) Pathologist [facility] Hep C Ab NON-REACTI VE NON-REACTI VE [employer] [facility] [employer] SIGNAL TO CUT-OFF 0.06 <1.00 [facility] [employer] 05/13/2017 3:50 PM CDT 05/13/2017 3:51 PM CDT Narrative Resulting Agency Comment Performing Organization Information: Site ID: [place] Name: [facility] Address: [address] [place] [address] Director: Jaswant Randall D.O., MPH Latasha JI LAB MICROBIOLOGY - GENERAL ORDERABLES Final Result [facility] [employer] [facility] [place], [place] * ThinPrep Pap (02/07/2015 12:15 PM CDT) Pathologist [facility] Thin Prep Pap Smear SEE BELOW () 02/14 6:30 PM CDT [facility] HISTORICAL RESULTS Comment: [place] Clerk ThinPrep Cytology Final Report ThinPrep Pap Specimen Source Cervix/Endocervix Specimen Adequacy Satisfactory for interpretation, endocervical cells (transformation zone) present. Interpretation Negative for intraepithelial lesion or malignancy. 02/14/15 Production Supv: TERA Osman(ASCP) 02/14/15 Verified By: TERA Osman(ASCP) electronic signature [facility], Department of Pathology For questions regarding this case, call ext. [phone] CPT Code(s) 65452 Clinical History LMP: [id number] : N : N IUD: N Hormone Therapy: N Postmenopausal: N Previous surgery date and type: N Hysterectomy: N Chemotherapy: N MICHELE Exposure: N Radiation: N Previous Abnormal Pap? Details: N Diagnostic or Screening Pap Test: Screening Performed by [employer], [address] [place] [id number] [email or web address], Hira Cadena MD - Lab. Director 02/07/2015 12:1 5 PM CDT 02/07/2015 4:28 PM CDT Jaswant Vega MD LAB PATHOLOGY ORDERABLE S Final Result [facility] HISTORICAL RESULTS from Last 3 Months or Most Recently Relevant to Health Maintenance Insurance [facility] CLAIMS [employer] [facility] CLAIMS [employer] [facility] CLAIMS [facility] Care Teams Geological Manager Relationship Specialty Start Date End Date Nieves Sears MD [address] [address] PCP - General 11/06/19 [place] [address] [facility] [address] [place] [address] Rheumatology 05/15/17 [place] [address] [facility] [address] [place] [address] Nurse Practitioner 02/13/18
--- OUTSIDE RECORDS SUMMARY | 2025-01-22 01:15 | XMS_ITS | Encounter Summary ---
Author Organization [facility] Address [address] [facility] [place] [address] Care Team Providers Care Anchor Tacker Name Role Phone Nieves Sears MD Primary Care Provider [phone] Encounter Details Date Type Department Care Team (Late st Contact Info) Description 03/23/2022 Lab Requisition [facility] Care D[facility] Lab [address] [facility] [place] [address] Joseluis Wasserman MD [address] [facility] [place] [address] Social History Tobacco Use Types Packs/Day Years Used Date Smoking Tobacco: Never Assessed Comments Unknown Sex and Gender Information Value Date Recorded Sex Assigned at Not on file Legal 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 Gender Identity Not on file Sexual Orientation Not on file documented as of this encounter Plan of Treatment Not on file documented as of this encounter Procedures Procedure Name Priority Date/Time Associated Diagnosis Comments DERMATOPATHOLOGY Routine 03/22/2022 12:0 0 AM CDT documented in this encounter Results * DERMATOPATHOLOGY (03/22/2022 12:00 AM CDT) Case Report Dermatopathology Report Case: [id number] Authorizing Provider: Joseluis Wasserman MD Collected: 03/22/2022 12:00 AM Ordering Location: [facility] Received: 03/23/2022 04:31 PM Pathologist: Carlos Alberto Scott MD Specimen: Skin, left lateral neck 5:36 PM CDT DERMATOPATHOLOGY LABORATORY Final Diagnosis Specimen A. SKIN, left lateral neck: NEUROFIBROMA (D36.10) 2 5:36 PM CDT DERMATOPATHOLOGY LABORATORY at 1736 CDT Clinical History Nevus. Path# [id number] 5:36 PM CDT DERMATOPATHOLOGY LABORATORY Gross Description Specimen A: Received is one formalin filled container labeled with the patient's name and designated left lateral neck. The specimen consists of a shave biopsy measuring [id number] and it is bisected. Jar 0. 5:36 [...] characteristic determined by the Dermatopathology Laboratory at [facility], directed by Dr. Marianna Scott. These tests need not be, and therefore are not, approved by the [place] Food and Drug Administration. The tests are used for clinical purposes. Billing Codes Specimen Charges Stain Charges 11772 1 2 5:36 PM CDT DERMATOPATHOLOGY LABORATORY Embedded Images 5:36 PM CDT DERMATOPATHOLOGY LABORATORY Pathology/Cytolog y TISSUE SPECIMEN FROM SKIN / Unknown 03/22/2022 03/23/2022 4:31 PM CDT us Joseluis Wasserman MD LAB - PATHOLOGY/CYTOLOGY ORDER GLORIA Final Result DERMATOPATHOLOGY LABORATORY [facility] - Department of Dermatology [address], [address] [phone] documented in this encounter Visit Diagnoses Not on filedocumented in this encounter Care Teams Anchor Tacker Relationship Specialty Start Date End Date Nieves Sears MD [address] [facility] [address] [place] [address] PCP - General Family Medicine 07/08/15 documented as of this encounter
--- OUTSIDE RECORDS SUMMARY | 2025-01-22 01:15 | XMS_ITS | Data Portability ---
Author Organization [facility] DOLORESRoberth [facility] Address [address] [place] [address] Care Team Providers Care Acid Blower Name Role Phone NIEVES AGEE Primary Care Provider [phone] STEFAN CELESTIN Orthopedic Surgeon [phone] TK CALIX Conveyor Attendant Assessment No assessment recorded. Plan of Treatment Reminders Order Date Submit Date Provider Last Modified By Organization Details Last Modified Time Details Appointments ANY 15 2024 09:15A M Nieves Agee MD Not available Not available Not available Lab urinaly sis, dipstic k 2024 025 VANITA In-Office Order, Internal Use Only DO Not Attach Compendium DO Not Attach Compendium, Do Not Delete/merge, [id number] 10/16/2024 14:52:30 culture , urine 2024 025 VANITA [facility], [address] [place] [address], [address], 10/17/2024 21:20:50 Referral plastic surgeon rhonda hung - she prefers the [facility] plastic surgery departm ent for consult ation 2024 025 [facility], [address] [place], [address], 11/26/2024 15:42:08 Procedures None recorde d. Surgeries None recorde d. Imaging None recorde d. Medication Orders prednis one 20 mg tablet 2024 025 [id number], [address], [place], [address], 12/18/2024 15:56:12 cefdini r 300 mg capsule 2024 025 [id number], [address], [place], [address], 12/18/2024 15:56:12 Zepboun d 5 mg/0.5 mL subcuta neous pen injecto r 2024 025 [place] [address], [address], 10/16/2024 14:34:35 azelast ine 205.5 mcg (0.15 %) nasal spray 2024 025 [place] [address], [address], 10/16/2024 14:34:35 zolpide m 5 mg tablet 2024 025 [place] [address], [address], 10/16/2024 14:34:36 Zepboun d 7.5 mg/0.5 mL subcuta neous pen injecto r 2023 024 [place] [address], [address], 01/19/2025 08:32:03 zolpide m 5 mg tablet 2023 024 [place] [address], [address], 06/18/2024 15:13:09 zolpide m 5 mg tablet 2023 024 [facility] [address] [place] [address], [address], 01/31/2024 10:13:40 Zepboun d 5 mg/0.5 mL subcuta neous pen injecto r 2023 024 [facility] [address] [place] [address], [address], 05/21/2024 13:23:59 Zepboun d 5 mg/0.5 mL subcuta neous pen injecto r 2023 024 [facility] [address] [place] [address], [address], 05/21/2024 13:23:45 Patient TargetsNo targets recorded. Patient Instructions Encounter Date Encounter Id Patient Instructions Last Modified By Organization Details Last Modified Time 10/31/2023 [id number] body mass index: care instructions Not available 10/31/2023 12:55:17 learning about healthy weight Not available 10/31/2023 12:55:17 01/31/2024 [id number] A healthy lifestyle: care instructions Not available 01/31/2024 10:13:35 06/18/2024 [id number] body mass index: care instructions Not available 06/18/2024 15:12:52 learning about healthy weight Not available 06/18/2024 15:12:52 10/16/2024 [id number] dietary bladder irritants Not available 10/16/2024 14:34:33 Reason for Referral Plastic Surgeon Referral for Excessive skin and subcutaneous tissue she prefers the [facility] plastic surgery department for consultation Referring Physician: Nieves Agee, Family Medicine, Encounter Date: 10/16/2024 Results Created Date Observation Date Name Description Value Unit Range Abnormal Flag Note LastModifiedBy Organization Detail LastModifiedTime 01/10/20 24 01/12/2024 HEPAT IC FUNCT ION PANEL protein, total 6.4 g/dL 6.1-8. 1 normal Not Available [address], [address], 01/12/2024 12:19:13 01/10/20 24 01/12/2024 HEPAT IC FUNCT ION PANEL albumin 3.9 g/dL 3.6-5. 1 normal Not Available [address], [address], 01/12/2024 12:19:13 01/10/20 24 01/12/2024 HEPAT IC FUNCT ION PANEL globulin 2.5 g/dL_ (calc ) 1.9-3. 7 normal Not Available [address], [address], 01/12/2024 12:19:13 01/10/20 24 01/12/2024 HEPAT IC FUNCT ION PANEL albumin/glob ulin ratio 1.6 (calc ) 1.0-2. 5 normal Not Available [address], [address], 01/12/2024 12:19:13 01/10/20 24 01/12/2024 HEPAT IC FUNCT ION PANEL bilirubin, total 0.4 mg/dL 0.2-1. 2 normal Not Available [address], [address], 01/12/2024 12:19:13 01/10/20 24 01/12/2024 HEPAT IC FUNCT ION PANEL bilirubin, direct 0.1 mg/dL < or = 0.2 normal Not Available [address], [address], 01/12/2024 12:19:13 01/10/20 24 01/12/2024 HEPAT IC FUNCT ION PANEL bilirubin, indirect 0.3 mg/dL _(kalie c) 0.2-1. 2 normal Not Available [address], [address], 01/12/2024 12:19:13 01/10/20 24 01/12/2024 HEPAT IC FUNCT ION PANEL alkaline phosphatase 104 U/L 37-153 normal Not Available [facility] [address] [place] [address] [place], [address], 01/12/2024 12:19:13 01/10/20 24 01/12/2024 HEPAT IC FUNCT ION PANEL AST 41 U/L 10-35 high Not Available [place] [address] [place], [address], 01/12/2024 12:19:13 01/10/20 24 01/12/2024 HEPAT IC FUNCT ION PANEL ALT 25 U/L 6-29 normal Not Available [address], [address], 01/12/2024 12:19:13 01/10/20 24 01/12/2024 VITAM IN [...] /MS is recom shanice d: order code 26553 (cherry ents >2yrs ). See Note 1 Note 1 For addit ional infor thai rodriguez refer to http: //dusty pinzonQue stDia gnost ics.c om/fa q/FAQ 199 (This link is being provi ded for infor michoacano beyer/ nyasia hung purpo ses only. ) Not Available [facility] [place] [address] [place], [address], 01/12/2024 12:19:15 10/16/19 25 10/17/2024 CULTU RE, URINE , ROUTI NE culture, urine, routine SEE NOTE CULTU RE, URINE , ROUTI NE Micro Numbe r: [id number] Test Statu s: Final Speci men [...] Cultu re Trans port Tube. Not Available [place] [address] [place], [address], 10/17/2024 21:20:50 10/16/19 25 10/16/2024 urina lysis [...] 10/16/2024 urina lysis , dipst ick Specific [place] 1.015 Not Available In-Off ice Order Internal [...] DO Not Attach Compendium, Do Not Delete/merge, [id number] 10/16/2024 14:30:44 11/14/19 25 11/13/2024 MAMMO , rajendra burger No observ ation record ed. [facility] [address] [place], [address], 11/13/2024 12:37:25 Result Notes None recorded. Problems Name Problem SNOMED Code Status Onset Date Resolution Date Notes Provider Name and Address Organization Details Recorded Time History of bariatri c surgical procedur e 569765356 Active 2017 Nieves Agee MD Attn: Accounting ,[address] [place], [place], [address] [place] [address] , [facility] 2 10:53:53 History of immunosu ppressiv e therapy 219503033 Active 2018 Nieves Agee MD Attn: Accounting ,[address] [place], [place], [address] [place] [address] , [facility] - [facility] 2 10:53:55 Persiste nt insomnia 751105741 Active 2020 Nieves Agee MD Attn: Accounting ,[address] [place], [place], [address] [place] [address] , [facility] 2 10:54:13 Reactive hypoglyc emia 605542 Completed 202101/31/2024 Nieves Agee MD Attn: Accounting ,[address] [place], [place], [address] [place] [address] , [facility] 4 10:17:25 Divertic ulosis of colon 953263776 Active 2023 Nieves Agee MD Attn: Accounting ,[address] [place], [place], [address] [place] [address] , [facility] - [facility] 4 07:51:43 History of polyp of colon 160766638 Active 2023 tubular adenoma 01/14/24- - recheck THREE YEARS Nieves Agee MD Attn: Accounting ,[address] [place], [address] , [place] [facility] 4 07:36:41 Chronic insomnia 020277401 Active 2023 Nieves Agee MD Attn: Accounting ,[address] [place], [address] , [place] [facility] 4 10:17:30 Body mass index 30+ - obesity 611086618 Completed 202310/16/2024 Nieves Agee MD Attn: Accounting ,[address] [place], [address] , [place] [facility] 5 14:12:04 Irritabl e bowel syndrome 41535383 Active Nieves Agee MD Attn: Accounting ,[address] [place], [address] , [place] [facility] 2 10:54:00 Anxiety disorder 693689330 Completed 06/19/2018 Nieves Agee MD Attn: Accounting ,[address] [place], [address] , [place] [facility] 8 14:56:08 Cobalami n deficien cy 551075500 Completed 06/19/2018 Nieves Agee MD Attn: Accounting ,[address] [place], [address] , [place] [facility] 8 14:56:12 Vitamin D deficien cy 49697572 Completed 01/31/2024 Removal Reason: result 96 on 12/2023 Nieves Agee MD Attn: Accounting ,[address] [place], [address] , [place] [facility] 4 10:18:00 Sciatica 24662358 Completed 201408/18/2015 Location : None;Sev erity: Moderate ;Progres s: Stable;A dded By: Eleanor Leavitt;Add to Current Problems : YES Not Available [facility] 7 09:39:40 Hemorrha ge of rectum and anus 916984178 Completed 201207/23/2013 Location : None;Sev erity: Moderate ;Progres s: Stable;A dded By: Nieves Agee;Add to Current Problems : NO Not Available [facility] 7 09:39:40 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 780922967 Completed 201310/04/2013 Location : None;Sev erity: Moderate ;Progres s: Stable;A dded By: Nieves Agee;Add to Current Problems : NO Not Available [facility] 09:39:40 Disorder of rotator cuff 715612393 Completed 201303/18/2014 Location : None;Sev erity: Moderate ;Progres s: Stable;A dded By: Nieves Agee;Add to Current Problems : NO Not Available [facility] 09:39:40 Localize d, 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 180029066 Active 2013 Location : None;Sev erity: Moderate ;Progres s: Stable;A dded By: Nieves Agee;Add to Current Problems : NO Nieves Agee MD Attn: Accounting ,[address] [place], [address] , [facility] 0 14:51:31 Pain in limb 35584914 Active 2014 Location : None;Sev erity: Moderate ;Progres s: Stable;A dded By: Nieves Agee;Add to Current Problems : YES Nieves Agee MD Attn: Accounting ,[address] [place], [address] , [facility] 0 14:51:31 Dyssomni a 66731410 Completed 201405/15/2015 Location : None;Sev erity: Moderate ;Progres s: Stable;A dded By: Nieves Agee;Add to Current Problems : YES Not Available [facility] 7 09:39:41 Vitamin B deficien cy 70186741 Active 2011 Location : None;Sev erity: Moderate ;Progres s: Stable;A dded By: Nieves Agee;Add to Current Problems : YES Nieves Agee MD Attn: Accounting ,[address] [facility], [place], [place], [address] [place] [address] , [facility] 0 14:51:31 Clinical finding Completed 201512/19/2017 Location : None;Sev erity: Moderate ;Progres s: Stable;A dded By: Nieves Agee;Add to Current Problems : YES Nieves Agee MD Attn: Accounting ,[address] [facility], [place], [place], [address] [place] [address] , [facility] 8 14:53:28 Migraine without aura 02608174 Active 2015 Location : None;Sev erity: Moderate ;Progres s: Stable;A dded By: Nieves Agee;Add to Current Problems : YES Nieves Agee MD Attn: Accounting ,[address] [place], [place], [address] [place] [address] , [facility] 0 14:51:31 Generali zed anxiety disorder 82522052 Active 2013 Location : None;Sev erity: Moderate ;Progres s: Stable;A dded By: Nieves Agee;Add to Current Problems : YES Nieves Agee MD Attn: Accounting ,[address] [facility], [place], [place], [address] [place] [address] , [facility] 0 14:51:31 Benign essentia l hyperten vesta 6633870 Active 2011 Location : None;Sev erity: Moderate ;Progres s: Stable;A dded By: Nieves Agee;Add to Current Problems : YES Nieves Agee MD Attn: Accounting ,[address] [facility], [place], [place], [address] [place] [address] , [facility] 0 14:51:31 Neck pain 51210878 Completed 201301/12/2016 Location : None;Sev erity: Moderate ;Progres s: Stable;A dded By: Eleanor Leavitt;Add to Current Problems : YES Not Available [facility] 7 09:39:41 General symptom 694879699 Completed 201312/19/2017 Location : None;Sev erity: Moderate ;Progres s: Stable;A dded By: Taniya Espinal;Add to Current Problems : YES Nieves Agee MD Attn: Accounting ,[address] [place], [address] , [facility] 8 14:53:22 Shoulder joint pain 271388379 Completed 201306/20/2014 Location : None;Sev erity: Moderate ;Progres s: Stable;A dded By: aTniya Espinal;Add to Current Problems : YES Not Available [facility] 7 09:39:41 Acute cystitis 89522125 Completed 201410/23/2014 Location : None;Sev erity: Moderate ;Progres s: Stable;A dded By: Taniya Espinal;Add to Current Problems : YES Not Available [facility] 7 09:39:41 Headache 85406547 Completed 201309/23/2014 Location : None;Sev erity: Moderate ;Progres s: Stable;A dded By: Keli Ellison;Add to Current Problems : YES Not Available [facility] 7 09:39:41 Chest pain 53999217 Completed 201502/06/2016 Location : None;Sev erity: Moderate ;Progres s: Stable;A dded By: Lexy Valenzuela; Add to Current Problems : NO Not Available [facility] 7 09:39:41 Head and neck swelling 537159365 Completed 201502/12/2016 Location : None;Sev erity: Moderate ;Progres s: Stable;A dded By: Lexy Valenzuela; Add to Current Problems : YES Not Available [facility] 7 09:39:41 Acute sinusiti s 33703366 Completed 201301/14/2014 Location : None;Sev erity: Moderate ;Progres s: Stable;A dded By: Helen Kumar i;Afsaneh dd to Current Problems : NO Not Available [facility] 7 09:39:41 Transien t insomnia 855995989 Completed 201301/14/2014 Location : None;Sev erity: Moderate ;Progres s: Stable;A dded By: Helen Kumar i;Afsaneh dd to Current Problems : NO Not Available [facility] 7 09:39:42 Acute upper respirat ory infectio n of multiple sites Completed 201310/22/2013 Location : None;Sev erity: Moderate ;Progres s: Stable;A dded By: Taniya Espinal;Add to Current Problems : NO Not Available [facility] 7 09:39:42 Acute sinusiti s 24782853 Completed 201310/22/2013 Location : None;Sev erity: Moderate ;Progres s: Stable;A dded By: Donya Mann;Add to Current Problems : NO Not Available [facility] 7 09:39:42 Clinical finding Completed 201405/23/2015 Location : None;Sev erity: Moderate ;Progres s: Stable;A dded By: Dulce Maria Arevalo;Add to Current Problems : NO Not Available [facility] 7 09:39:42 Venereal disease screenin g Completed 201108/28/2012 Location : None;Sev erity: Moderate ;Progres s: Stable;A dded By: Eleanor Leavitt;Add to Current Problems : NO Not Available [facility] 7 09:39:42 Family history of malignan t neoplasm of gastroin testinal tract 777529071 Active 2011 Location : None;Sev erity: Moderate ;Progres s: Stable;A dded By: Nieves Agee;Add to Current Problems : NO Nieves Agee MD Attn: Accounting ,[address] [place], [address] , [facility] 0 14:51:31 Problem Notes None recorded. Procedures Surgical History Date Name Laterality Status Provider Name and Address Organization Details Recorded Time 09/22/19 19 I&D completed Nieves Agee MD Attn: Accounting,[address] [place], [address], [facility] 09/22/2018 16:50:48 03/04/20 18 Breast Surgery completed Nieves Agee MD Attn: Accounting,[address] [facility], [place], [address], [facility] 03/06/2018 09:36:56 10/03/19 18 Ankle/Foot Surgery completed Nieves Agee MD Attn: Accounting,[address] [facility], [place], [address], [facility] 10/31/2023 09:20:04 09/04/19 17 Total hysterectomy completed Nieves Agee MD Attn: Accounting,[address] [facility], [place], [address], [facility] 10/31/2023 09:19:11 05/25/19 98 bariatric operative procedure completed Nieves Agee MD Attn: Accounting,[address] [facility], [place], [address], [facility] 10/31/2023 12:53:45 Cholecystectomy completed Delmis Xiong [facility] 03/22/2017 13:54:47 Hernia Repair completed Delmis Xiong [facility] 03/22/2017 13:55:00 Caesarean Section completed Ema Xiong [facility] 03/22/2017 13:55:17 Removal of thyroid completed Jacky Xiong [facility] 03/22/2017 13:55:38 Imaging Results None recorded. Procedure Notes None recorded. Medical Equipment None Reported. Allergies Allergen ID Allergen Name Allergen Category Reaction Reaction Severity Criticality Documentation Date Start Date Code Code System Note Provider Name and Address Organization Details Recorded Time 615293 Humira medicatio n itching swelling Not available Not available low 09/24/2022 22407 4 RxNorm Nieves Agee MD Attn: Sierra g,[address] [facility], [place], [address], [facility] 3 16:24:03 26249 lisinopri l medicatio n cough Not available Not available 06/04/2016 48755 RxNorm Taniya rivers, [facility] 6 12:41:35 32122 Non-stero idal anti-infl ammatory agent (product) medicatio n dizziness moderate Not available 08/29/20162011 81872 005 SNOMED React ion: dizzi ness, nause a;Sev erity : Moder ate; Comme nt: had gastr ic bypas s;All ergy Type: Adver se React ion; Not Available [facility] 7 03:48:57 38440 tramadol Not available Not available Not available Not available 08/29/20162011 04928 RxNorm React ion: sweat ing;S everi ty: Moder ate; Comme nt: StopR irena : Incor rect infor matio n;All ergy Delet ed On: 09/03;A llerg y Type: Adver se React ion; Nieves Agee MD Attn: Accountin g,[address] [place], [address], [facility] 9 14:30:39 47564 Product containin g angiotens in-conver ting enzyme inhibitor (product) medicatio n cough moderate Not available 08/29/20162011 57077 009 SNOMED React ion: cough ;Mayra rity: Moder ate; Comme nt: Aller gy Type: Adver se React ion; Not Available [facility] 7 03:48:57 Medications Name Sig Start [...] ) by mouth qid 07/12 completed RxNorm: 162841;A llow Substitu tion: True Not Available Not [...] 1 po daily prn 11/23 completed RxNorm: 241822;A llow Substitu tion: True Not Available Not Available Not Available pimecroli mus 1 % topical cream PLEASE SEE ATTACHED FOR DETAILED DIRECTIO NS 03/25 completed Not Available Not Available Not Available Diflucan 150 mg tablet Take 1 by mouth weekly x 2 11/21 completed RxNorm: 535584;A llow Substitu tion: True Not Available Not Available Not Available Atarax 10 mg tablet Take by oral route. 06/18 completed Not Available Not Available Not Available Zyrtec 10 mg tablet Take 1 tablet(s ) by mouth daily 05/26 completed RxNorm: 1071962; Allow Substitu tion: True Not Available Not [...] - 6 hours prn 12/03 completed RxNorm: 877591;A llow Substitu tion: True Not Available Not [...] ) by mouth daily 12/31 completed RxNorm: 748749;A llow Substitu tion: True Not Available Not [...] 1 TABLET BY MOUTH EVERY NIGHT NEEDED. 2024 active Not Available Not Available Not Avai lable ergocalci ferol (vitamin D2) 1,250 mcg (50,000 [...] bid for 20 days 12/14 completed RxNorm: 350058;A llow Substitu tion: True Not Available Not [...] s) by mouth qam 11/23 completed RxNorm: 433022;A llow Substitu tion: True Not Available Not Available Not Available fluticaso ne propionat e 50 mcg/actua tion nasal spray,kaden pension Bouton 2 sprays every day by intranas al route as needed. active Not Available Not Available No t Available sertralin e 50 mg tablet Take 1 tablet(s ) by mouth daily 05/26 completed RxNorm: 920817;A llow Substitu tion: True Not Available Not [...] e 205.5 mcg (0.15 %) nasal spray Bouton 2 sprays twice a day by intranas [...] Not Available Not Available Not Avai lable ID NOW COVID-19 Test Kit TEST DIRECTED [...] ONE TIME PER WEEK FOR 28 DAYS 10/16 completed Not Available Not Available Not Available Vitals Date Recorded Body height Body mass index (BMI) Body weight Body temperature Oxygen saturation Oxygen saturation in Arterial blood by Pulse oximetry Heart rate Systolic blood pressure Diastolic blood pressure Provider Name and Address Organization Details Last Updated DateTime 5 160.02 cm 24.4 kg/m2 87582.7 5 g 97 [degF] 99 % 99 % 66 /min 113 mm[Hg] 78 mm[Hg] Dominique Ojeda [place] [facility] 5 14:02:15 Date Recorded Body height Body mass index (BMI) Body weight Oxygen saturation Oxygen saturation in Arterial blood by Pulse oximetry Heart rate Body temperature Systolic blood pressure Diastolic blood pressure Provider Name and Address Organization Details Last Updated DateTime 4 160.02 cm 36.1 kg/m2 76894.8 4 g 96 % 96 % 64 [...] Updated DateTime 5 160.02 cm 22.7 kg/m2 43565.8 2 g 97.3 [degF] 99 % 99 % 86 /min 102 mm[Hg] 63 mm[Hg] Dominique Ojeda MA [facility] 5 15:41:42 Date Recorded Body height Body mass index (BMI) Body weight Oxygen saturation Oxygen saturation in Arterial blood by Pulse oximetry Heart rate Body temperature Systolic blood pressure Diastolic blood pressure Provider Name and Address Organization Details Last Updated DateTime 4 160.02 cm 32.2 kg/m2 84057.8 1 g 97 % 97 % 79 [...] Updated DateTime 4 160.02 cm 27.5 kg/m2 11270.8 2 g 96 % 96 % 72 /min 98 [degF] 117 mm[Hg] 74 mm[Hg] Rossi Tobias MA [facility] 4 14:21:20 Social History Question Answer Notes LastModified by Organizat ion Details LastModified Time Tobacco Smoking Status Never Smoker [facility] 06/04/2016 12:44:00 Do You [...] anxious, or unable to sleep at night)? [id number] Information not available 06/18/2024 Family History Relationship [...] Response Coronary Artery Disease N Other N Atrial Fibrillation N High Blood Pressure N Thyroid Problems N Kidney or Bladder Problems N Depression Y COPD N Blood Clots N GI Problems Y Have you had a mammogram in the last yea r? N Skin Problems N Eating Disorder N Anemia Y Heart Attack (AR) N Diabetes N Anxiety Disorder Y Muscle, Joint, or Bone Problems Y Seizures/Epilepsy N Have you had a colonoscopy in the last 1 0 years? Y Arthritis Y Acid Reflux (GERD) N Cancer N Stroke N Allergies N Asthma N ADHD N Substance Abuse N High Cholesterol N Hepatitis N Liver Disease N Schizophrenia N Headaches N Osteoporosis N Heart Failure N Gynecological History Statement/Question Response Menses Monthly [...] 1 completed GARRISON Montanez Attn: Accounting[address] [place], [address] [place] [address], [place] [facility] 05/20/2023 14:18:18 COVID-19, mRNA, LNP-S, PF, 30 mcg/0.3 mL dose 1 completed GARRISON Montanez Attn: Accounting[address] [place], [address] [place] [address], [place] [facility] 05/20/2023 14:18:18 TST-PPD intradermal 1 completed Nieves Agee MD Attn: Accounting[address] [place], [address] [place] [address], [place] [facility] 08/23/2023 08:51:37 COVID-19, mRNA, LNP-S, PF, 30 mcg/0.3 mL dose 1 completed GARRISON Montanez Attn: Accounting[address] [place], [address] [place] [address], [place] [facility] 05/20/2023 14:18:18 Influenza, split virus, quadrivalent, preservative 6 completed Not Available [facility] 09/12/2019 02:32:32 Tdap 6 completed Not Available [facility] 09/12/2019 02:30:18 influenza, unspecified formulation 2 completed Nieves Agee MD Attn: Accounting[address] [place], [address] [place] [address], [place] [facility] 08/23/2023 08:51:37 COVID-19, mRNA, LNP-S, bivalent, PF, 30 mcg/0.3 mL dose 2 completed GARRISON Montanez Attn: Accounting,[address] [facility], [place], [address], [place] [facility] 05/20/2023 14:18:18 Influenza, split virus, quadrivalent, PF 2 completed GARRISON Montanez Attn: Accounting,[address] [facility], [place], [address], [facility] 05/20/2023 14:18:18 Influenza, MDCK, trivalent, PF 5 completed Nieves Agee MD Attn: Accounting[address] [place], [address], [facility] 10/16/2024 14:08:14 Pneumococcal conjugate PCV 13 7 completed Not Available [facility] 09/12/2019 02:33:54 Influenza, split virus, quadrivalent, preservative 7 completed Not Available [facility] 09/12/2019 02:42:30 pneumococcal polysaccharide PPV23 8 completed Not Available [facility] 02:36:25 Influenza, split virus, quadrivalent, preservative 8 completed Not Available [facility] 09/12/2019 02:36:29 Influenza, split virus, quadrivalent, preservative 9 completed Not Available [facility] 09/12/2019 02:38:41 Influenza, split virus, quadrivalent, preservative 0 completed Suzanne Pickens MA null, [facility] 06/24/2020 15:01:34 Influenza, split virus, quadrivalent, preservative 1 completed Didi Wallis LPN null, [place] - [facility] 05/19/2021 15:30:39 Influenza, split virus, trivalent, preservative 3 completed Nieves Agee MD Attn: Accounting,[address] [facility], [place], [address], [place] - [place] 12/07/2019 14:51:51 Influenza, split virus, trivalent, preservative 4 completed Nieves Agee MD Attn: Accounting,[address] [facility], [place], [address], [facility] - SI 12/07/2019 14:51:51 Influenza, split virus, quadrivalent, preservative 5 completed Nieves Agee MD Attn: Accounting,[address] [facility], [place], [address], [facility] - SI 12/07/2019 14:51:51 Influenza, split virus, quadrivalent, preservative 3 completed Nieves Agee MD Attn: Accounting,[address] [facility], [place], [address], [facility] - SI 08/23/2023 08:45:11 Past Encounters Encounter ID Performer Location Encounter Start Date Encounter Closed Date Diagnosis/Indication Diagnosis SNOMED-CT Code Diagnosis ICD10 Code Diagnosis Note [id number] Nieves Agee MD [facility] [address] [facility] [address] [place] [address] 06/04/2016 12:27:13 06/04/2016 17:47:09 Essential hypertension 07384633 I10 no change in med and you will watch low salt and exercise and lose weight Administra tion of influenza vaccine 41654289 Z23 Persistent insomnia 1919 97824 G47.09 Cont as needed ambien Administra tion of diphtheria, pertussis, and tetanus vaccine 359234119 Z23 [id number] Nieves Agee MD [facility] [address] [facility] [address] [place] [address] 09/18/2016 14:58:18 09/19/2016 14:39:01 Diarrhea 84974419 R19.7 [id number] Nieves Agee MD [facility] [address] [place] [address] 12/03/2016 13:45:24 12/03/2016 15:15:49 Benign essential hypertension 7123812 I10 no med change and encouraged exercise / weight loss [id number] Nieves Agee MD [place] [address] [place] [address] 03/25/2017 11:07:51 03/25/2017 14:09:21 Cobalamin deficiency 756259024 E53.8 Administra tion of pneumococcal vaccine 60065912 Z23 Long-term current use of immunosuppressive drug 684677513 Z79.899 awaiting alk phos isoenzymes Morbid obesity 071117363 E66.01 fatty liver may be ut unlikely trigger -- no elevated SGOT or PT [id number] Nieves Agee MD [facility] [address] [place] [address] 06/04/2017 13:47:50 06/04/2017 14:46:06 Persistent insomnia 183347774 G47.09 Cont as needed ambien-- discussed trial of 1/2 tab instead of full tab due to high dose Benign ess ential hypertension 4947953 I10 no med change and encouraged exercise / weight loss Administra tion of influenza vaccine 80751227 Z23 Vitamin D deficiency 347 19970 E55.9 Vitamin B deficiency 479 67611 E53.9 Thoracic back pain 93274 8004 M54.6 due to large breast size Macromastia 347358826 N6 2 [id number] Nieves Agee MD [facility] [address] [place] [address] 09/23/2017 10:42:18 09/23/2017 16:49:46 Fracture of cuneiform 048719633 S92.201A cleared for planned surgery on 10/03/17 for injection of chondrobla sts? Morbid obesity 769029827 E66.01 weight has contribute d with the healing of melissa foot injury-- you have had some weight loss with MTX Essential hypertension 35349237 I10 no change in med and you will watch low salt and exercise and lose weight Systemic l upus erythematosus 31052738 M32.9 cont care/ management with rhrumatolo gist [id number] Donya Mann MD [facility] [address] [place] [address] 11/01/2017 11:26:14 11/01/2017 14:40:39 Alkaline phosphatase above reference range 556319226 R74.8 [id number] Nieves Agee MD [facility] [address] [facility] [address] [place] [address] 11/21/2017 17:21:18 11/21/2017 18:19:19 Serum alkaline phosphatase above reference range 702150835 R74.[address] Alexander on 11/27/17 about this. THe elevation in ALk Phos has been present since Aug 2016-- varying in level. THe Isoenzymes weakly show liver isoenzyme elevation. Had liver U/S in March of 2017 Plain X-ra y of thoracic spine abnormal 850885274 R93.7 attention T 10-- abnormal bone scan and plain XRAYS are inconclusi ve. Elevated Alk Phosphatas e [id number] Nieves Agee MD [facility] [address] [facility] [address] [place] [address] 12/19/2017 13:58:06 12/20/2017 09:47:44 Benign essential hypertension 9065464 I10 no med change and encouraged exercise / weight loss Anxiety disorder 3659197 06 F41.9 no change in Zoloft-- job function and attendance is good Morbid obesity 827778361 E66.01 weight discussed Cobalamin deficiency 190 300059 E53.8 refill for monthly injections Persistent insomnia 1919 25496 G47.09 Cont as needed ambien-- discussed trial of 1/2 tab instead of full tab due to high dose [id number] Nieves Agee MD [facility] [address] [facility] [address] [place] [address] 02/13/2018 17:46:21 02/14/2018 09:45:07 Chronic thoracic back pain 7322590404 58094 M54.6 to have breast reduction mammoplast y discussed adn cleared Pre-surger y evaluation 687165330 Z01.818 to get the pre-op testing in 10 days [id number] Nieves Agee MD [facility] [address] [facility] [address] [place] [address] 06/19/2018 14:24:05 06/20/2018 09:39:06 Irritable bowel syndrome 87603131 K58.9 Benign ess ential hypertension 6108842 I10 no med change and encouraged exercise / weight loss Patient immunocompromised 970339316 D84.9 due to the decrease in your immune system-- will update the pneumonia vaccine and get the yearly flu shot Administra tion of pneumococcal vaccine 49838024 Z23 Administra tion of influenza vaccine 96328712 Z23 Insomnia 487864515 G47.0 0 now trying CBD oils and doing well with it's use [id number] Nieves Agee MD [facility] [address] [place] [address] 09/08/2018 10:50:43 09/09/2018 08:40:22 Acute urinary tract infection 087931680 N39.0 [id number] Nieves Agee MD [facility] [address] [place] [address] 09/22/2018 15:42:02 09/23/2018 08:55:18 Acute maxillary sinusitis 54530274 J01.00 the clindamyci n should be effective for respirator y and the abscess related pathogens Abscess of skin and/or subcutaneous tissue 79416966 L02.91 History of immunosuppressive therapy 599344454 Z92.25 [id number] Nieves Agee MD [facility] [address] [place] [address] 12/11/2018 14:18:30 12/12/2018 08:42:23 Benign essential hypertension 2378846 I10 no med change and encouraged exercise / weight loss Generalize d anxiety disorder 14807454 F41.1 stress reduction Pain in right knee 59553 38613 60195 M25.561 since injury for 3 months ago- likely slow to heal due to the RA Persistent insomnia 1919 76762 G47.09 Cont as needed cheryl-- discussed trial of 1/2 tab instead of full tab due to high dose Vitamin D deficiency 347 17869 E55.9 Vitamin B deficiency 479 53605 E53.9 [id number] Nieves Agee MD [facility] [address] [place] [address] 04/08/2019 14:02:45 04/08/2019 15:39:08 Herpes zoster 8304446 B02.9 the forehead lesion is NOT likely related to the shingles. THe other lesions are more likely the results of shingles outbreak [id number] Nieves Agee MD [facility] [address] [place] [address] 06/08/2019 13:54:06 06/08/2019 15:04:05 Benign essential hypertension 3525832 I10 no med change and encouraged exercise / weight loss Generalize d anxiety disorder 02653130 F41.1 stress reduction Administra tion of influenza vaccine 03672720 Z23 Persistent insomnia 1919 35902 G47.09 Cont as needed ambien-- discussed trial of 1/2 tab instead of full tab due to high dose [id number] Nieves Agee MD [facility] [address] [place] [address] 10/07/2019 12:01:17 10/07/2019 15:56:10 Knee pain 85674362 M25.569 Palpable mass 858049494 R22.9 [id number] Nieves Agee MD [facility] [address] [place] [address] 12/07/2019 13:15:33 12/07/2019 16:15:47 Persistent insomnia 508967169 G47.09 Cont as needed ambien--di scussed counseling and stress reduction. Get out / fresh air Generalize d anxiety disorder 78382445 F41.1 stress reduction History of immunosuppressive therapy 829076939 Z92.25 [id number] Nieves Agee MD [facility] [address] [place] [address] 02/15/2020 11:25:55 02/15/2020 19:53:37 Pain of right shoulder joint 6206839320 7360646 M25.511 possibly impingemen t but likely strain for poor posture and poor ergonomics with work tasks Muscle spa sm of cervical muscle of neck 3704938813 04 M62.838 ice -- stretches- - ergonomica lly correct work space needed [id number] Nieves Agee MD [facility] [address] [place] [address] 02/22/2020 13:12:46 02/22/2020 15:28:46 Muscle spasm of cervical muscle of neck 4981983273 04 M62.838 ice -- stretches- - ergonomica lly correct work space needed [id number] Nieves Agee MD [facility] [address] [facility] [address] [place] [address] 06/14/2020 13:20:52 06/15/2020 12:19:04 Persistent insomnia 791732073 G47.09 Cont as needed ambien--di scussed counseling and stress reduction. Get out / fresh air Generalize d anxiety disorder 28826438 F41.1 stress reduction and use HYDROXYZIN E as needed sparingly- - we discussed drug interactio n of TRAMADOL with SERTRALINE and patient reports stable with this combinatio n detention History of cholecystectomy 831083584 Z90.49 [id number] Nieves Agee MD [facility] [address] [facility] [address] [facility] [place] [address] 06/24/2020 14:45:04 06/27/2020 18:48:38 Administration of influenza vaccine 27662455 Z23 [id number] Nieves Agee MD [facility] [address] [facility] [address] [place] [address] 01/04/2021 09:08:13 01/05/2021 10:50:54 Persistent insomnia 687400259 G47.09 discussed and refills sent- follow up 6 mo-- sooner as needed Benign ess ential hypertension 8198161 I10 no med change and encouraged to continue with the exercise / weight loss Inflammato ry polyarthropathy 285869889 M06.4 cont to follow with the rheumatolo gist and fax/ send lab reports from last labs done for record [id number] Nieves Agee MD [facility] [address] [facility] [address] [facility] [place] [address] 03/30/2021 10:13:38 03/31/2021 09:34:21 Generalized anxiety disorder 46316960 F41.1 do not take hydroxyzin e or [...] playing tennis or team sports. Decreased hearing 692950 001 H91.90 [id number] Nieves Agee MD [facility] [address] [facility] [place] [address] 04/27/2021 09:06:01 04/27/2021 15:04:39 Generalized anxiety disorder 12341224 F41.1 do not take hydroxyzin e or [...] cycling, or playing tennis or team sports. [id number] Nieves Agee MD [facility] [address] [place] [address] 05/19/2021 15:01:33 05/19/2021 16:01:40 Tuberculosis screening 350250829 Z11.1 Administra tion of influenza vaccine 43349963 Z23 [id number] Nieves Agee MD [facility] [address] [place] [address] 08/28/2021 11:04:47 08/28/2021 17:45:58 Persistent insomnia 812608008 G47.09 routine renewal-- take as directed and cont with counseling as discussed Benign ess ential hypertension 2846506 I10 no med change and encouraged to continue with the exercise / weight loss Generalize d anxiety disorder 30106770 F41.1 cont with counseling for the stress and issues with keeping 4 y/ocont with the sertraline and the bupropion for now-- higher dose was not helpful-- no dose change today Vitamin B deficiency 479 47310 E53.9 monthly renewal-- got injection yesterday so level not checked today-- CBC in Jun was OK Inflammato ry polyarthropathy 428710290 M06.4 cont to follow with the rheumatolo gist reviewed lab reports from June 2021 with tramadol from rheumatolo gist HIV screen ing declined 7613764826 07419 Z53.20 offered and declined Immunization advised 310 815290 Z71.9 advised shingles vaccine series-- immunocomp romised-- has had shingles in the past Vitamin D deficiency 347 78404 E55.9 check vit D -- was low in the past Morbid obesity 347011199 E66.01 weight discussed- - has had bariatric surgery-- maintainin g-- discussed healthy eating and exercise Reactive hypoglycemia 31 7006 E16.1 discussed diet and nutrition and risk for eventual DM over time-- last glucose 66 with rhrumatolo gist [id number] Nieves Agee MD [facility] [address] [place] [address] 10/30/2021 11:02:16 10/30/2021 16:18:26 Sore throat 957569760 J02.9 rest and fluids. cont pain reliever and call if not better with treatment as directed Cough 03853074 R05.1 use GREGG over the counter every morning and 2 benedryl at night until feeling better [id number] Nieves Agee MD [facility] [address] [place] [address] 02/27/2022 09:59:13 02/27/2022 11:21:50 Benign essential hypertension 3388429 I10 no med change and encouraged to continue with the exercise / weight losssend message wt BP readings from home and [facility]) Generalize d anxiety disorder 89119287 F41.1 discussed her counseling for the stress and issues with keeping 4 y/oI advised to cont with the sertraline and lower the bupropion dose to every other day for one month-- then 2 times a week until the tabs she has at home are finished-- will slowly taper off BUpropion Persistent insomnia 1918003 G47.09 routine renewal-- take as directed and cont with counseling as discussed- - will not taper off at this time Vitamin D deficiency 347 34550 E55.9 continue with weekly vit D -- stop daily-- last VIt D level was 80 [id number] Nieves Agee MD [facility] [address] [place] [address] 09/24/2022 15:09:17 09/25/2022 12:00:14 Morbid obesity 930218324 E66.01 weight discussed- - has had bariatric surgery-- maintainin g-- discussed healthy eating and exercise Benign ess ential hypertension 4162408 I10 no med change and encouraged to continue with the exercisese nd message wtih BP readings from home and will check BP readings from [facility] ( who sees her in person for infusions) Generalize d anxiety disorder 54876160 F41.1 discussed her counseling for the stress and issues with keeping 4 y/oI advised to cont with the sertraline daily with the as needed other agents taken sparingly as directed History of bariatric surgical procedure 013117442 Z98.84 will check labs given BARIATRIC history to assure levels ok-- reports she is taking B 12 injections monthly History of immunosuppressive therapy 699081646 Z92.25 per Rheumatolo gist Persistent insomnia 1918 19049 G47.09 routine renewal-- take as directed and cont with counseling as discussed- - will not taper off at this time-- effective dose Long-term drug therapy 695820333 Z79.899 lab since on detention meds-- to assure liver/ kidneys/ electrolyt es and blood counts are OK [id number] Nieves Agee MD [facility] [address] [facility] [place] [address] 03/25/2023 13:51:07 03/26/2023 09:28:17 Persistent insomnia 091802922 G47.09 routine renewal-- take as directed and cont with counseling as discussed- - will not taper off at this time-- effective dose Pain of le ft hip joint 0833716601 97451 M25.552 will XRAY the hip and knee-- if neg XRAY -- consider PT-- if abnormal-- to see ortho Pain of le ft knee joint 7547383794 50790 M25.562 will XRAY the hip and knee-- if neg XRAY -- consider PT-- if abnormal-- to see ortho Hypoglycemia 821904236 E 16.2 pt ed diet and avoiding skipping meals and avoid simple sugar-- eat some protein with each meal and snack every 4 hours Change in voice 46505508 5 R49.9 not sure if this is medically an issue-- she admits and is noted to have a normal voice at this time Body mass index 30+ - obesity 559485985 Z68.41 options discussed and she wishes to trial MOUNJARO-- if MOUNJARO is not covered-- patient will let me know alternativ es to this treatment HIV screen ing declined 4295238565 25034 Z53.20 offered and declined screen for HIV Screening mammography of bilateral breasts 6335295422 16228 Z12.31 mammogram ordered / advised History of immunosuppressive therapy 819916682 Z92.25 as per Rheumatolo gist [id number] Nieves Agee MD [facility] [address] [facility] [place] [address] 05/20/2023 14:00:09 05/21/2023 17:55:53 Diarrhea 59228597 R19.7 Given 4 weeks of symptoms will check labs and stool culturesCo ntinue BRAT diet Abnormal urine odor 8769 003 R82.90 Urine normal [id number] Nieves Agee MD [facility] [address] [place] [address] 08/22/2023 11:59:04 08/23/2023 10:33:13 Administration of influenza vaccine 08204686 Z23 flu shot advised and given today Obesity 561284762 E66.9 we discussed PHENTERMIN E/ CONTRAVE and [...] participat ing in dietary changes/ lifestyle changes) [id number] Nieves Agee MD [facility] [address] [facility] [address] [place] [address] 10/31/2023 11:45:16 10/31/2023 15:39:41 History of bariatric surgical procedure 534738034 Z98.84 updated surgical history - given BARIATRIC history - reports she is taking B 12 injections monthly Body mass index 30+ - obesity 860776227 Z68.41 options discussed and she has been taking ZEPBOUND with success in controllin g appetite and weight loss. Cost of med is an issue and using savings card to assist in covering medication cost. Renewal for 30 days with 2 refills sent to pharmacyI will investigat e discount options for patient [id number] Nieves Agee MD [facility] [address] [place] [address] 01/31/2024 09:43:02 01/31/2024 12:43:09 Chronic insomnia 873528802 F51.04 no med change-- reports med is effective and will need refill in February ( next OV will be in 3 months) Body mass index 30+ - obesity 106492009 Z68.41 no med dose change-- she actually asked for dose increase and that request was denied since risk of SEs increase with dose increase. Further plans pending outcome of weight loss goals History of polyp of colon 989906066 Z86.010 due to have colon recheck in 3 years [id number] Nieves Agee MD [facility] [address] [facility] [address] [place] [address] 06/18/2024 14:13:50 06/19/2024 12:52:25 Body mass index 30+ - obesity 653486739 Z68.41 no med dose change-- she actually asked for dose increase and that request was denied since risk of SEs increase with dose increase. Further plans pending outcome of weight loss goals Obesity 582330528 E66.9 I will cont ZEPBOUND until BMI is < 27 and gradually wean the dose to keep weight stable Low back pain 078153658 M54.50 offered and declined PT-- plans to get to the [facility] Pain of bi lateral hip joints 9680545248 6857969 M25.551 M25.552 offered and declined PT- for hip pain (?bursitis )- plans to get to the [facility] Chronic insomnia 0739003 04 F51.04 no med change-- reports med is effective and will need refill since next OV will be in 4 months instead of 2 months and only has refills for 2 months Influenza vaccination declined 805305620 Z28.21 offered and declined flu shot [id number] Nieves Agee MD [facility] [address] [facility] [address] [facility] [place] [address] 10/16/2024 13:42:32 10/16/2024 16:00:30 Screening mammography 99691397 Z12.31 she has an appt for mammograph y in October -- no order needed Obesity 082843380 E66.9 I will slowing decrease the ZEPBOUND dose--- Further plans pending outcome of weight loss goals--BMI is < 27 and gradually wean the dose to keep weight stable Chronic insomnia 5298143 04 F51.04 no med change-- reports med is effective and will need refill since next OV will be in 3 months instead of 2 months and only has refills for 2 months Excessive skin and subcutaneous tissue 484925873 L98.7 Urgent constance sharyn to urinate 93827336 R39.15 Anterior rhinorrhea 2772 47801 J34.89 will trial with AZELATINE spray and consider the combo steroid/ antihistam ine sprays if this is not effective [id number] Nieves Agee MD [facility] [address] [place] [address] 12/18/2024 15:26:36 12/21/2024 11:47:33 Dysfunction of bilateral eustachian tubes 0919553029 282465 H69.93 Acute maxi llary sinusitis 47595948 J01.00 immunocomp romised on RA meds. No [...] [place] Member ID Guarantor Name 10/31/2023 1 [employer] [id number] Eleanor Pierre [id number] Eleanor Pierre 10/31/2023 2 [facility] ( - P[facility]) Eleanor Pierre [id number] Eleanor Pierre 01/31/2024 1 [employer] [id number] Eleanor Pierre [id number] Eleanor Pierre 01/31/2024 2 [facility] ( - P[facility]) Eleanor Pierre [id number] Eleanor Pierre 06/18/2024 1 [employer] [id number] Eleanor Pierre [id number] Eleanor Pierre 06/18/2024 2 [facility] ( - [place]) Eleanor Pierre [id number] Eleanor Pierre 10/16/2024 1 [place] [id number] Eleanor Pierre [id number] Eleanor Pierre 10/16/2024 2 [facility] () Eleanor Pierre [id number] Eleanor Pierre 12/18/2024 1 [employer] [id number] Eleanor Pierre [id number] Eleanor Pierre 12/18/2024 2 [facility] () Eleanor Pierre [id number] Eleanor Pierre Notes Date Note Type Note [...] ago 10/02/2023. f/u Nieves Agee MD Attn: [facility],[address] [place] [address], [id number], [facility] 10/31/2023 13:45:15 4 text/html InsomniaReported bypatient.Quality:symptoms worse [...] primary therapy Nieves Agee MD Attn: [facility]ing,[address] [place], [address], [facility] 01/31/2024 10:18:30 4 text/html ObesityReported bypatient.Context:no inhaled [...] just has infusion Nieves Agee MD Attn: Accounting,[address] [place], [address], [facility] 06/18/2024 16:54:42 5 text/html ObesityReported bypatient.Context:no inhaled [...] pain is occasional -- care is per ear specialist Nieves Agee MD Attn: Accounting,[address] [facility], [place], [address], [facility] 10/16/2024 14:36:11 5 text/html Sinusitis/AllergyReported bypatient.Associated Symptoms:headache(pressure) [...] nostil only. GARRISON Khoury Attn: Accounting[address] [facility], [place], [address], [facility] 12/18/2024 15:57:13 OBGyn Episode No OBEpisode recorded.
--- NOTE | 2025-01-22 08:41 | P.PNAN_ITS ---
Anes - Initial Pre Proc Eval Procedure: Operation Date: 01/22/25 10:30 Proposed Procedures p Bilateral Brachioplasty - Lance Leung MD Date/Time: 01/22/25 08:41 Surgeon: Lance Leung MD Pre Op Diagnosis: skin laxity Patient Data Age: 54 Gender: F Height: 1.6 m Weight: 62 kg Allergies Allergy/AdvReac Type Severity Reaction Status Date / Time lisinopril Allergy Intermediate cough Verified 01/12/25 15:15 Home Medications ?Medication ?Instructions ?Recorded ?Confirmed ?Type PNV no.151-iron 27 mg-folic 800 1 cap PO DAILY 01/12/25 01/12/25 History mcg-omega3 260 ww-pbb-hhs-fish capsule ( Multi-DHA (with vitamin K)) colestipol 1 gram tablet 2 g PO DAILY 01/12/25 01/12/25 History cyanocobalamin (vitamin B-12) 1,000 mcg subcut MONTHLY 01/12/25 01/12/25 History 1,000 mcg/mL injection solution ergocalciferol (vitamin D2) 1,250 1,250 mcg PO MONTHLY 01/12/25 01/12/25 History mcg (50,000 unit) capsule folic acid 1 mg tablet 2 mg PO DAILY 01/12/25 01/12/25 History golimumab 12.5 mg/mL intravenous 125 mg IV .every 8 weeks 01/12/25 01/12/25 History solution (Simponi ARIA) hydroxychloroquine 200 mg tablet 200 mg PO BID 01/12/25 01/12/25 History methotrexate sodium 2.5 mg tablet 20 mg PO WEEKLY 01/12/25 01/12/25 History frzvqiyl-gwt-Ww-FA 1 mg 1 tablet PO DAILY 01/12/25 01/12/25 History tablet sertraline 100 mg tablet 100 mg PO .AM 01/12/25 01/12/25 History spironolactone 100 mg tablet 100 mg PO BID 01/12/25 01/12/25 History tirzepatide (weight loss) 7.5 7.5 mg subcut WEEKLY 01/12/25 01/12/25 History mg/0.5 mL subcutaneous pen injector (Zepbound) zolpidem 5 mg tablet 5 mg PO .HS 01/12/25 01/12/25 History Patient hx anesthesia problems: none Family hx anesthesia problems: none Results Review: All pre-operative results and documents have been reviewed as part of the pre- operative evaluation. [facility] Past Medical History Medical History (Updated 01/22/25 @ 08:46 by Dorian Saxena DO) Hypoglycemia Anemia Rheumatoid arthritis Surgical History Surgical History (Updated 01/22/25 @ 08:10 by Dorian Saxena DO) History of cholecystectomy History of gastric bypass Social History Social History Smoking status: Never smoker Alcohol intake: never Substance use: never Living arrangements: with family Additional living arrangements comments: Spiritual care concerns: No Anes - Eval Final PreProcedure Day of Procedure 01/22/25 08:41 Patient weight: normal Heart: regular rate and rhythm Lungs: clear to auscultation Airway: Mallampati scale class II Neurological: alert and oriented Last oral intake: >/= 8 hours ASA classification: II Emergent: no Anesthetic plan: proceed Anesthesia type and monitoring: general LMA and standard monitoring Results Review: All pre-operative results and documents have been reviewed as part of the pre- operative evaluation. Informed Consent: The patient's anesthetic plan and its attendant risks and benefits were discussed with the patient/family/POA. Questions were solicited and answers provided to the satisfaction of the patient/family/POA.
[2025-01-22 08:59] LABS: Glucose Point of Care 83 mg/dl (65-105)
[2025-01-22 09:00] LABS: Urine Cotinine NEGATIVE
[2025-01-22] MEDS: TRANEXAMIC ACID 1,000MG/ISO100 1,000 MG/100 ML BAG 200 MG IVPB (09:48)
[2025-01-22] MEDS: LACTATED RINGERS 1,000 ML 30 ML IV CONT ×2 (09:48→12:19)
--- NOTE | 2025-01-22 09:55 | WPDHPUPDATE1 ---
History and Physical Update Update Date/Time: 01/22/25 09:55 History and Physical has been reviewed, including an updated exam of the patient. There are NO changes in the patient's condition. Risks, benefits, and alternatives have been discussed and questions answered. Patient agrees to proceed with procedure.
--- NOTE | 2025-01-22 09:55 | W.PM.PROC2 ---
Procedure Note - Detailed Date of Procedure 01/22/25 Pre-op Diagnosis skin laxity Post-op Diagnosis Same Procedure Performed Bilateral brachioplasty Surgeon Lance Leung MD Anesthesia General Findings Lipoaspirate: 700 cc Description of Procedure Here for the above procedures. Preoperatively risks, benefits, alternatives were discussed again today in extensive detail. I want to be very realistic about the risks involved as well as expectations. Made sure answered all of their questions to satisfaction. They voiced a clear understanding. Consent obtained. Patient was marked in the preoperative holding area with their verification. Taken to the operating placed supine on the operating table. Anesthesia was provided by anesthesiology. Prepped and draped in a standard sterile fashion. Surgical time-out was taken. Stab incisions were made and I tumesced with a tumescent solution. Once adequate time for hemostasis suction lipectomy was with a 4 mm basket cannula based on S.A.F.E. technique. This was completed based on preoperative planning, intraoperative observation, and rolling pinch test which was in full agreement. I completely de-fatted the planned resection area and a strip avulsion technique was completed. Starting proximal to distal a 10 blade was used to excise the intervening skin and this was tacked as we proceed to ensure good closure. This was closed using a 2-0 Quill, 3-0 strata fix, running subcuticular 4-0 Monocryl, and tissue glue. Dressings were placed. Tolerated the procedure well. Taken to the PACU without difficulty. All instrument sponge counts were correct at the end of the case. Estimated Blood Loss 20 Drains No Packing No Pathology None sent Complications No immediate complications Condition Stable Disposition PACU
[2025-01-22] MEDS: LACTATED RINGERS IRRIG 1,000 ML, LIDOCAINE 1% LOCAL INJ 50 ML, EPINEPHrine HCL INJ 1 MG... INFILTRATE (10:08)
[2025-01-22] MEDS: ceFAZolin 2 GM/D5W 50 ML 2 GM/50 ML BAG IVPB (10:08)
[2025-01-22 12:27] LABS: Glucose Point of Care 128 mg/dl (65-105)
--- NOTE | 2025-01-22 13:11 | SUR.PHASEI ---
Dr. Saxena aware of sinus tach post-op.
[2025-01-22] MEDS: oxyCODONE HCL (*CRX) 5 MG TAB IR PO (14:30)
== END 2025-01-22 14:45 | disposition home or self-care (01) ==
PROVIDERS: PCP Family Medicine; Visit Provider Surgery Plastic and Reconstructive Surgery
PROC: (CPT 15836; principal; 2025-01-22 10:30)
DX: Z41.1 Encounter for cosmetic surgery (principal); L57.4 Cutis laxa senilis; Z79.85 Long-term (current) use of injectable non-insulin antidiabetic drugs; Z79.899 Other long term (current) drug therapy
CPT/HCPCS: 15836; 15878; 80307; 82948; A9270; J0171; J0690; J1100; J1171; J1200; J2003; J2250; J2405; J2704; J3010; J7120